=== PATIENT | female | born 1965 | race Caucasian/White ===

== ENCOUNTER 2018-08-16 07:09 | Emergency (ER) | payer BC, OTHER ==
[2018-08-16 08:22] LABS: ABS Basophils 0 10^3/ul (0-0.2); ABS Eosinophils 0.3 10^3/ul (0-0.6); ABS Lymphocytes 0.9 10^3/ul (1.0-4.8); ABS Monocytes 0.6 10^3/ul (0-0.8); ABS Neutrophils 6.4 10^3/ul (1.5-7.7); ABS Nucleated RBC 0 10^3/ul; Eosinophil % 3.4 %; Hematocrit 43 % (33-41); Hemoglobin 14.6 g/dL (12.0-16.0); Lymphocyte % 10.6 %; Mean Corpuscular HGB Conc 34 g/dL (31-36); Mean Corpuscular Hemoglobin 32 pg (27-31); Mean Corpuscular Volume 92 fL (80-97); Mean Platelet Volume 8.3 fL (7.4-10.4); Nucleated Red Blood Cells % 0.1; Platelet Count 294 10^3/uL (150-450); Red Blood Count 4.64 10^6 /uL (3.70-4.87); Red Cell Distribution Width 13 % (10.5-15); White Blood Count 8.1 10^3/uL (3.5-10.8)
[2018-08-16 08:33] LABS: INR 0.95 (0.82-1.09)
[2018-08-16 08:39] LABS: Albumin 4.3 g/dL (3.2-5.2); Albumin/Globulin Ratio 1.8 (1-3); BUN/Creatinine Ratio 19.7 (8-20); Calcium 9.2 mg/dL (8.6-10.3); EGFR African American 114.2 (>60); EGFR Non-African American 94.4 (>60); Globulin 2.4 g/dL (2-4); Potassium 4.3 mmol/L (3.5-5.0); Total Bilirubin 0.4 mg/dL (0.2-1.0); Total Protein 6.7 g/dL (6.4-8.9)
[2018-08-16] MEDS ORDERED: Ketorolac INJ* 30 MG/ML 1 ML VIAL IV PUSH ONE (08:45)
[2018-08-16] MEDS ORDERED: Iohexol 350* (CONTRAST) 500 ML MDV IV ONE (09:22)
[2018-08-16 10:36] VITALS: BP 132/86
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
== END 2018-08-16 10:35 | disposition home or self-care (01) ==
LOC: ED 07:09
DX: R07.89 Other chest pain (principal); J90 Pleural effusion, not elsewhere classified; F17.210 Nicotine dependence, cigarettes, uncomplicated
CPT/HCPCS: 36415; 71046; 71275; 80053; 83605; 84484; 85025; 85610; 93005; 96374; 99283; J1885; Q9967

== ENCOUNTER → 2019-01-14 | Day surgery (SDC) | payer BC ==
[~2019-01-14] MED LIST: Buffered Lidocaine 1% SYRIN* 1 ML/SYRINGE INTRADERM ONE; Bupivacaine 0.25% EPI 200,000* 30 ML SDV ONE; Dexamethasone IV* 4 MG/ML 1 ML (4 MG) ONE; HYDROcodone/ACETAMIN 5-325 MG* 1 TAB ONE; Ketorolac INJ* 30 MG/ML 1 ML VIAL ONE; Labetalol IV* 5 MG/ML 20 ML VIAL ONE; Lactated Ringers 1000 ML Bag* 1,000 ML IV SCH; Lidocaine 1% INJ* 10 MG/ML 30 ML SDV ONE; Midazolam* 1 MG/ML 2 ML VIAL (2 MG) ONE; Midazolam* 1 MG/ML 5 ML VIAL (5 MG) ONE; Naloxone* 0.4 MG/ML 1 ML VIAL IV PRN; Propofol* 10 MG/ML 20 ML BTL ONE; Vancomycin(*) 1,000 MG in NS 0.9% 250 ML* 250 ML IVPB ONE; ceFAZolin 2 GM in NS PREMIX(*) 0 GM/0 ML BAG IVPB ONE; fentaNYL* 50 MCG/ML 2 ML VIAL (100 MCG VIAL) ONE
[2019-01-14 14:41] VITALS: BP 134/81
--- NOTE | 2019-01-14 21:38 | OP ---
DATE OF OPERATION: 01/14/19 - [facility] DATE OF : 67 SURGEON: Steve Stein DPM. ANESTHESIA: MAC, local. PRE-OP DIAGNOSIS: Cellulitis and abscess of a dehisced surgical wound. POST-OP DIAGNOSIS: Cellulitis and abscess of a dehisced surgical wound with complications from orthopedic hardware. OPERATIVE PROCEDURE: Incision and drainage with pulse lavage, right foot. ESTIMATED BLOOD LOSS: Less than 10 cc. IV FLUIDS: LR 1000 cc. DRAINS: None. SPECIMENS: Culture swab of the bone and surgical screw sent to Pathology. DESCRIPTION OF PROCEDURE: The patient was taken to the operating room and was placed in the supine position. Time-out was called and OR team agreed. The foot was then blocked with 8 cc of 1% lidocaine plain in a Arthur block fashion at the base of the metatarsal. The foot was then prepped and draped in sterile manner. A cuff was applied, but was not used for this case. Attention was then paid to the wound where there was a surgical wound approximately the size of 6 cm x 3 cm and the depth was down to tendon. I went ahead and proceeded to inspect the wound first and I noticed that the dehiscence goes all the way down to bone and that the surgical hardware was exposed. I went ahead and removed any kind of nonviable tissue, debrided with a #15 blade. I also did a Pulsavac with just normal saline. I used about 3 L. I went ahead and removed the solitary surgical screw and sent it for pathology for cultures. The most distal part of the wound is the one that the patient was complaining of pain. I examined that area. That happens to be the exact same spot supplied by a nerve from the plantar aspect base of the toe. I went ahead and debrided that and closed it with 2 nylon sutures. I left the wound open. I put Xeroform on the tendon to keep it from drying up. I applied a dry sterile dressing. I will have her come back in the office on Thursday for application of a wound VAC. [id number]/[facility] #: [id number] MOSHE
== END | disposition home or self-care (01) ==
LOC: OR 10:08
PROVIDERS: ATTEND Podiatrist
DX: T84.69XA Infection and inflammatory reaction due to internal fixation device of other site, initial encounter (principal); T81.32XA Disruption of internal operation (surgical) wound, not elsewhere classified, initial encounter; L03.115 Cellulitis of right lower limb; E78.5 Hyperlipidemia, unspecified; K21.9 Gastro-esophageal reflux disease without esophagitis
CPT/HCPCS: 87070; 87073; 87077; 87186; 87205; 88300; J0690; J1100; J1885; J2250; J2704; J3010; J3370

== ENCOUNTER 2019-01-31 13:07 | Inpatient (IN) | payer BC ==
--- OUTSIDE RECORDS SUMMARY | 2019-01-31 13:27 | XMS REPORT | Continuity of Care Document ---
:1965 External Reference #:[id number] Author Name Aubrey Faust M.D. (transmitted by agent of provider Columba Ogden) Address [address] [place] [address] [place] [address] Care Team Providers Name Role Phone Aubrey Calderon MD - Family Medicine Care Team Information Dog Obedience Instructor [phone] Problems Description No Information Available Social History Type Date Description Comments Sex Unknown ETOH Use Occasionally consumes alcohol Recreational Drug Use Current Drug User Marijuana 1x/week Tobacco Use Start: Unknown End: Patient is a former Quit a year ago. Unknown smoker Smoking Status Reviewed: 01/13/19 Patient is a former Quit a year ago. smoker Exercise Type/Frequency Exercises sporadically Allergies, Adverse Reactions, Alerts Description No Known Drug Allergies Medications Active Medications SIG Qnty Indications Ordering Provider Date Prilosec 1 by mouth 30caps Other Ordering 03/21/[address] every day Provider Multivitamin Gummies 1 by mouth 60units Other Ordering 03/21/2015 Adult every day Provider [place] Acetaminophen 1 tab q 6 hrs 60units Other Ordering 03/21/2015 250mg as needed pain Provider Clindamycin HCL Prudencioagonzalo, 300mg MD Steve Capsules Bupropion Brandon, Hydrochloride ER (XL) Lexandria, P.A. 300mg Tablets ER 24HR Immunizations Description No Information Available Vital Signs Date Vital Result Comment 01/13/2019 10:08am Height 65 inches 5'5" Weight 161.00 lb Heart Rate 91 /min BP Systolic 128 mmHg BP Diastolic 82 mmHg Respiratory Rate 22 /min Body Temperature 98.1 F Pain Level 9 BMI (Body Mass Index) 26.8 kg/m2 Results Description No Information Available Procedures Description No Information Available Medical Devices Description No Information Available Encounters Description No Information Available Assessments Date Code Description Provider 01/13/2019 M20.11 Hallux valgus (acquired), right foot Aubrey Faust M.D. Plan of Treatment 01/13/2019 - Aubrey Faust M.D.M20.11 Hallux valgus (acquired), right footFollow up:As needed Functional Status Description No Information Available Mental Status Description No Information Available Referrals Description No Information Available
[2019-01-31] MEDS ORDERED: NS 0.9% 1000 ML** 1,000 ML IV ONE ×2 (14:33→17:41)
[2019-01-31] MEDS ORDERED: HYDROmorphone INJ1* 1 MG/ML SYRINGE IV SLOW PU ONE ×3 (14:33→21:41)
[2019-01-31] MEDS ORDERED: Ondansetron INJ* 2 MG/ML VIAL IV ONE ×3 (14:33→21:41)
--- NOTE | 2019-01-31 14:38 | ED ---
Abdominal Pain/Female - HPI Summary HPI Summary: Pt is a 53 y/o F presenting to the ED for a chief complaint of diffuse abdominal pain that began at midnight on 01/31/19. Pt is present with her . Pt describes the pain as cramping. Pt also reports nausea, vomiting, and diarrhea that also began at midnight on 01/31/19. 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 On triage, pt rated the pain as 10/10 in severity. Pt denies taking any OTC medication for her symptoms. Pt recently had a foot surgery 8 weeks ago and is currently taking penicillin for a PMHx of MRSA and a staph infection. Pt called her surgeon who told the pt to go to the ED for a concern of post-op infection. Pt has a PSHx of cholecystectomy and 3 C-sections. Pt denies a PSHx of appendectomy or hysterectomy. Allergies noted. - History of Current Complaint Chief Complaint: EDAbdPain Stated Complaint: POST OP INFECTION PER PT Time Seen by Provider: 01/31/19 14:20 Hx Obtained From: Patient, Family/Manager Division - Hx Last Menstrual Period: dorinda time Onset/Duration: Sudden Onset, Lasting Hours, Still Present Severity Initially: Severe Severity Currently: Severe Pain Intensity: 10 Pain Scale Used: 0-10 Numeric Location: Diffuse Radiates: No Character: Cramping Aggravating Factor(s): Nothing Alleviating Factor(s): Nothing Associated Signs and Symptoms: Positive: Nausea, Vomiting, Diarrhea, Other: - Positive syncope Allergies/Adverse Reactions: Allergies Allergy/AdvReac Type Severity Reaction Status Date / Time No Known Allergies Allergy Verified 01/31/19 13:11 PMH/Surg Hx/FS Hx/Imm Hx Previously Healthy: Yes Endocrine/Hematology History: Denies: Hx Diabetes, Hx Thyroid Disease Cardiovascular History: Denies: Hx Congestive Heart Failure, Hx Hypertension Respiratory History: Denies: Hx Asthma, Hx Chronic Obstructive Pulmonary Disease (COPD) GI History: Reports: Hx Gall Bladder Disease - cholecystectomy, Hx Gastroesophageal Reflux Disease, Other GI Disorders - HISTORY OF PANCREATITIS Denies: Hx Ulcer History: Denies: Hx Renal Disease Musculoskeletal History: Reports: Other Musculoskeletal History - BUNION RIGHT FOOT Sensory History: Reports: Hx Contacts or Glasses - -readers Denies: Hx Legally Blind, Hx Deafness, Hx Hearing Aid Opthamlomology History: Reports: Hx Contacts or Glasses - -readers Denies: Hx Legally Blind EENT History: Denies: Hx Deafness Psychiatric History: Reports: Hx Depression - Cancer History Hx Chemotherapy: No Hx Radiation Therapy: No - Surgical History Surgical History: Yes Surgery Procedure, Year, and Place: cholecystectomy. csection x3. right foot surgery 12/10/2018 Hx Anesthesia Reactions: No Infectious Disease History: No Infectious Disease History: Denies: Hx Hepatitis, Hx Human Immunodeficiency Virus (HIV), Traveled Outside the US in Last 30 Days - Family History Known Family History: Negative: Diabetes - Social History Lives: With Family Alcohol Use: Occasionally Hx Substance Use: No Substance Use Type: Reports: None Hx Tobacco Use: Yes Smoking Status (MU): Former Smoker Type: Cigarettes Amount Used/How Often: a little less than a pack a day Length of Time of Smoking/Using Tobacco: 20 years Have You Smoked in the Last Year: No Review of Systems Positive: Abdominal Pain - Diffuse, Vomiting, Diarrhea, Nausea Positive: Syncope All Other Systems Reviewed And Are Negative: Yes Physical Exam - Summary Physical Exam Summary: Appearance: The patient is well-nourished in moderate distress secondary to pain. Skin: The skin is warm and dry, and skin color reflects adequate perfusion. HEENT: The head is normocephalic and atraumatic. The pupils are equal and reactive. The conjunctivae are clear and without drainage. Nares are patent and without drainage. Mouth reveals moist mucous membranes, and the throat is without erythema and exudate. The external ears are intact. The ear canals are patent and without drainage. The tympanic membranes are intact. Neck: The neck is supple with full range of motion and non-tender. There are no carotid bruits. There is no neck vein distension. Respiratory: Chest is non-tender. Lungs are clear to auscultation and breath sounds are symmetrical and equal. Cardiovascular: Heart is regular rate and rhythm. There is no murmur or rub auscultated. There is no peripheral edema and pulses are symmetrical and equal. Abdomen: The abdomen is soft. There are normal bowel sounds heard in all four quadrants and there is no organomegaly palpated. There is diffuse abdominal tenderness. Musculoskeletal: There is no back tenderness noted. Extremities are non-tender with full range of motion. There is good capillary refill. There is no peripheral edema or calf tenderness elicited. Neurological: Patient is alert and oriented to person, place and time. The patient has symmetrical motor strength in all four extremities. Cranial nerves are grossly intact. Deep tendon reflexes are symmetrical and equal in all four extremities. Psychiatric: The patient has an appropriate affect and does not exhibit any anxiety or depression. Triage Information Reviewed: Yes Vital Signs On Initial Exam: Initial Vitals Temp Pulse Resp BP Pulse Ox 96.8 F 92 16 142/97 97 01/31/19 13:09 01/31/19 13:09 01/31/19 13:09 01/31/19 13:09 01/31/19 13:09 Vital Signs Reviewed: Yes Procedures - Sedation Patient Received Moderate/Deep Sedation with Procedure: No Diagnostics - Vital Signs Vital Signs Temp Pulse Resp BP Pulse Ox 01/31/19 13:09 96.8 F 92 16 142/97 97 - Laboratory Result Diagrams: 01/31/19 20:35 01/31/19 15:05 Lab Statement: Any lab studies that have been ordered have been reviewed, and results considered in the medical decision making process. - CT Abdomen/Pelvis CT CT Interpretation Completed By: Radiologist Summary of CT Findings: Abdomen/Pelvis CT IMPRESSION: Probable mild diffuse colitis of the descending colon. There is associated mild focal ileus of small bowel. No other acute process seen. Reviewed by ED physician. Re-Evaluation - Re-Evaluation 1st re-eval Re-Evaluation Time: 17:35 Change: Unchanged Comment: At 17:35, pt is unchanged after being given hydromorphone 1 mg IV, ondansetron 4 mg IV, and fluids. Abdominal Pain Fem Course/Dx - Course Course Of Treatment: Ms. Gu the sudden onset of severe crampy abdominal pain at midnight last night. She initially had quite a bit of vomiting and diarrhea but that has resolved and no more occurred while she was here. She was nontoxic in appearance with stable vitals however clearly in pain distress. She was given IV Dilaudid and Zofran as well as IV fluids while labs were obtained. Beta great deal of difficulty getting labs but ultimately they were within normal limits. CT scan of her abdomen revealed a colitis which I have to suspect ischemic colitis given the story. I spoke with Dr. Ruelas who recommends admission to the hospitalist I spoke with Dr. currie to arrange that. - Diagnoses Provider Diagnoses: Ischemic colitis - Critical Care Time Critical Care Time: 30-74 min Discharge ED - Sign-Out/Discharge Documenting (check all that apply): Patient Departure - Admit - Discharge Plan Condition: Stable Disposition: ADMITTED TO [facility] Referrals: Kvng LANDAVERDE,Aubrey Rogers [Primary Care Provider] - - Billing Disposition and Condition Condition: STABLE Disposition: Admitted to [facility] - Attestation Statements Document Initiated by Scribe: Yes Documenting Scribe: Yamila Tena Provider For Whom Laurenibe is Documenting (Include Credential): Monico Zarate MD Scribe Attestation: IYamila, scribed for Moncio Zarate MD on 01/31/19 at 2136. Scribe Documentation Reviewed: Yes Provider Attestation: The documentation as recorded by the Yamila avitia accurately reflects the service I personally performed and the decisions made by me, Monico Zarate MD Status of Scribe Document: Viewed Consult Consult: At 21:23, I discussed pts case with Dr. Ruelas who recommends admission. At 21:27, Dr. Gonzáles who agrees to admit the pt with a diagnosis of ischemic colitis.
[2019-01-31 15:30] LABS: Albumin 4.2 g/dL (3.2-5.2); CO2 Carbon Dioxide 16 mmol/L (22-32); Chloride 110 mmol/L (101-111); Sodium 139 mmol/L (135-145)
[2019-01-31 15:37] LABS: ALT 52 U/L (7-52); Albumin/Globulin Ratio 1.5 (1-3); Alkaline Phosphatase 89 U/L (34-104); BUN/Creatinine Ratio 30.6 (8-20); Blood Urea Nitrogen 19 mg/dL (6-24); C Reactive Protein 5.63 mg/L (<8.01); EGFR African American 122.3 (>60); EGFR Non-African American 101.1 (>60); Globulin 2.8 g/dL (2-4); Glucose 119 mg/dL (70-100)
[2019-01-31 16:07] LABS: Anion Gap 13 mmol/L (2-11)
[2019-01-31 20:46] LABS: ABS Lymphocytes 0.9 10^3/ul (1.0-4.8); ABS Monocytes 0.6 10^3/ul (0-0.8); ABS Neutrophils 8.9 10^3/ul (1.5-7.7); Eosinophil % 0.1 %; Hematocrit 38 % (35-47); Lymphocyte % 8.5 %; Mean Corpuscular HGB Conc 34 g/dL (31-36); Mean Corpuscular Hemoglobin 31 pg (27-31); Mean Corpuscular Volume 91 fL (80-97); Nucleated Red Blood Cells % 0.1; Platelet Count 303 10^3/uL (150-450); Red Blood Count 4.12 10^6 /uL (3.70-4.87); Red Cell Distribution Width 13 % (10-15); White Blood Count 10.4 10^3/uL (3.5-10.8)
[2019-01-31] MEDS ORDERED: Al Hydrox/Mg Hydrox/Simet LIQ* 30 ML UDC PO PRN (21:35)
[2019-01-31] MEDS ORDERED: NS 0.9% 1000 ML** 1,000 ML IV SCH (21:45)
[2019-01-31] MEDS ORDERED: Vancomycin(*) 1,000 MG in NS 0.9% 250 ML* 250 ML IVPB ONE (22:36)
[2019-01-31] MEDS ORDERED: Vancomycin per Pharmacy* NOTE FOLLOW UP SCH (23:00)
[2019-02-01] MEDS ORDERED: Vancomycin 1500 MG IV - x ONCE IVPB ONE ×2
[2019-02-01] MEDS: cefTRIAXone(*) 1 GM in NS 0.9% 50 ML* 50 ML IVPB SCH ×2 (00:05→22:32)
[2019-02-01] MEDS: NS 0.9% 1000 ML** 1,000 ML IV SCH ×3 (00:05→20:14)
[2019-02-01] MEDS: Ondansetron INJ* 2 MG/ML VIAL IV PRN ×3 (00:50→20:28)
--- NOTE | 2019-02-01 00:51 | HP ---
CC: Dr. Calderon; Dr. Stein; Dr. Faust; Dr. Dallas; Dr. Ruelas; Dr. Galan. HISTORY AND PHYSICAL: DATE OF ADMISSION: 01/31/19 PRIMARY CARE PROVIDER: Dr. Calderon. PODIATRY: Dr. Stein. ORTHOPEDIC SURGERY: Dr. Dallas. GI: Dr. Ruelas. ID: Dr. Galan. CHIEF COMPLAINT: Nausea, vomiting, abdominal pain. HISTORY OF PRESENT ILLNESS: Karrie Gu is a 53-year-old female with a history of depression and recurrent episodes of nausea and vomiting every couple of years, who also is currently on ciprofloxacin for an infected right bunion surgical site who presented to the hospital complaining of nausea, vomiting, and several episodes of loose stools. The patient stated that early in the morning on 01/31/19, she started having nausea and vomiting and crampy abdominal pain in bilateral lower quadrants. She had 3 or 4 loose bowel movements, but she has not had any for past 7 hours. She still continues to be nauseated. A CT of the abdomen showed colitis. She is still tachycardic. She is going to be placed on overnight observation. PAST MEDICAL HISTORY: 1. The patient underwent right bunion surgery with hardware placement by Dr. Stein in November of 2018. The wound postoperative dehisced and at the beginning of December of 2018 Dr. Stein took the patient to the OR, removed the hardware and placed a wound VAC in place. Since then for the past 6 weeks she had been on various p.o. antibiotics, the most recent one was ciprofloxacin. She also recalls that she was on Bactrim before that. Her wound cultures grew Enterococcus faecalis as well as MRSA. It also grew Stenotrophomonas maltophilia. The patient stated that she stopped taking antibiotics on the morning of where she could not keep anything down. 2. History of recurrent problems with nausea and vomiting "every couple of years." 3. History of status post cholecystectomy in the year of 1999. 4. History of pancreatitis in 2007. 5. Tubal ligation. 6. History of possibility of "intestinal migraine." The patient's gastroscopy was obtained in 2013, showed erosive esophagitis at the GE junction. MEDICATIONS: At home include: 1. Bupropion XL 300 mg daily. 2. Multivitamin 1 tablet daily. 3. Omeprazole 20 mg daily. 4. ciprofloxacin -stopped within the past 24H ALLERGIES: No known drug allergies. FAMILY HISTORY: Positive for father with diabetes and mother with history of rheumatoid arthritis. SOCIAL HISTORY: The patient has a history of 15-pack year smoking and she quit in 2013. She denies any alcohol or drug use. 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 Her is her surrogate. REVIEW OF SYSTEMS: Please see history of present illness. In addition to the above mentioned, the patient stated that her right foot had become swollen more so in the bunion area ever since she started vomiting and stopped taking her oral antibiotics. She has more redness in the area, but she has reported no fevers. She has chronic constant pain in the area also. She wears boots to be able to bear weight on the right foot. She just vomited a couple of hours ago. All the remaining 12 systems were reviewed with the patient and were otherwise negative. PHYSICAL EXAMINATION GENERAL: The patient is a very pleasant 53-year-old female who is in no acute distress. Alert, awake, and oriented x3. VITAL SIGNS: Blood pressure of 133/78, heart rate of 101 and regular, respiratory rate 16, oxygen saturation 100% on room air, temperature of 96.8. HEENT: Head atraumatic and normocephalic. Eyes: Pupils are equal, round, and reactive to light and accommodation. Oropharynx clear. Mucosa moist. NECK: Supple. No JVD. No bruits bilaterally. RESPIRATORY: Clear to auscultation bilaterally. CARDIOVASCULAR: Regular rate and rhythm. No murmur. ABDOMEN: Soft and mildly tender in bilateral lower quadrants. No rebound and no guarding. Bowel sounds are present in all 4 quadrants. EXTREMITIES: The right foot on the dorsal aspect of it overlying the first toe metacarpal area, there is a longitudinal wound of approximately 2 cm in width and 10 cm in length with wound VAC in place. The skin surrounding the area has approximately 3 cm width of cellulitis with edema, increased warmth, and erythema. There was no visible drainage, but the wound VAC is in place and is currently working. The patient is unable to move her right first toe and she stated that she had not been able to do it ever since her surgery. There are no abnormalities noted on the left foot. There are no other abnormalities on evaluation of the skin noted. PSYCHIATRIC EVALUATION: Pleasant and cooperative with evaluation. Oriented x3. LABORATORY DATA: White blood cell count of 10.4, hemoglobin of 15.0, hematocrit 38, and platelets of 203,000. Sodium of 139, potassium was hemolyzed unfortunately, carbon dioxide 16, chloride of 110, anion gap of 13, creatinine of 0.6, BUN 19. Liver function test unremarkable. C-reactive protein was 5.6. CT of the abdomen and pelvis: Impression: "Probable mild diffuse colitis of the descending colon with associated mild focal ileus of the small bowel. No other acute process seen." ASSESSMENT AND PLAN: 1. An episode of nausea, vomiting, and diarrhea. It appears that the patient has more nausea and vomiting than loose stools, although she did have approximately 4 episodes of loose stool today. At this point, the differential includes a reaction of the patient to ongoing cellulitis and wound infection noted on the right toe versus gastroenteritis versus possibility of ischemic colitis. At this time, the patient is going to be placed on clear liquid diet. Dr. Ruelas was already notified by the ED provider and will see the patient in the morning. 2. In regards of right foot infected postoperative wound, the patient is going to be continued on the wound VAC for the time being. She requested to be seen by Dr. Faust whom she saw in the recent past. I spoke with Dr. Dallas who will contact Dr. Faust and if Dr. Faust is available, he will see the patient , otherwise one of our other orthopedic surgeons will see the patient for evaluation. The patient is going to be placed on broad spectrum antibiotics and from the evaluation of the patient's recent cultures positive for MRSA, Enterococcus faecalis, and Stenotrophomonas, the patient is going to be placed on ceftriaxone and vancomycin. 3. Diarrhea. The patient had 4 loose stools in the morning. She has not had any for 7 hours. I doubt this is Clostridium difficile infection. Nevertheless , we will test the patient for it since she had been on antibiotics for the past [address] the patient on probiotic. 4. For her depression, the patient is going to be continued on her antidepressant from home. 5. For DVT prophylaxis, the patient is low risk and she is going to be encouraged to ambulate as possible. TIME SPENT: Approximately 65 minutes were spent on admission of this patient, more than half the time was spent [id number] with the patient during the interview and physical exam. [id number]/BEAN #: [id number] MOSHE
[2019-02-01] MEDS: Morphine INJ* 2 MG/ML 1 ML SYRINGE (TWO MG - NEW SYRINGE VERSION) IV PRN ×3 (00:55→09:46)
--- NOTE | 2019-02-01 06:41 | PN ---
Progress Note - Progress Note Date of Service: 02/01/19 Note: Pt seen and examined. Full note consulted. Pt with history of left foot bunion surgery 12/10/18. Pt with wound complications and now VAC. Recent surgery 2 weeks ago with I and D and graft placement. Exposed tendon under graft. No gross purulence but surrounding erythema. Will obtain xrays and discuss with Dr Faust.
[2019-02-01] MEDS: Pantoprazole TAB * 40 MG TAB PO SCH (08:13)
[2019-02-01] MEDS: BuPROPion XL* 300 MG TAB.XL PO SCH (08:13)
[2019-02-01] MEDS: Lactobacillus Acidophilus* 1 TAB PO SCH ×2 (08:13→20:14)
[2019-02-01] MEDS: Acetaminophen TAB* 325 MG PO PRN ×2 (08:13→14:46)
[2019-02-01 10:53] LABS: Urine Appearance Cloudy; Urine Bacteria Absent (Absent); Urine Bilirubin Negative (Negative); Urine Blood Negative (Negative); Urine Color Yellow; Urine Glucose Negative (Negative); Urine Ketones 1+ (Negative); Urine Nitrite Negative (Negative); Urine Protein Negative (Negative); Urine Red Blood Cell Trace(0-2/hpf) (Absent); Urine Specific Gravity 1.021 (1.010-1.030); Urine Squamous Epithelial Cell Present (Absent); Urine Urobilinogen Negative (Negative); Urine White Blood Cell 1+(6-10/hpf) (Absent)
[2019-02-01 13:49] LABS: Calcium 8.4 mg/dL (8.6-10.3); Potassium 3.5 mmol/L (3.5-5.0)
[2019-02-01 13:54] LABS: BUN/Creatinine Ratio 21.5 (8-20); EGFR African American 115.8 (>60); EGFR Non-African American 95.7 (>60)
--- NOTE | 2019-02-01 14:00 | PN ---
Subjective Date of Service: 02/01/19 Interval History: HD 2 on 02/01 53 y/o F with history of depression, Migraine and recurrent nausea and vomiting( every couple of years) presented with nausea and vomiting with loose stools. Recently had right bunion surgery on 11/2018 with wound dehiscence and I and D iwth wound vac on 12/2018. On ceftriaxone and vanco(day 2 on 02/01) complaains of headache and burning sensation on her right leg No nausea, vomiting or abdominal pain at present. SHe has not Bm since hospital admission Objective Active Medications: Acetaminophen (Tylenol Tab*) 650 mg PO Q4H PRN PRN Reason: PAIN-MILD/TEMP >/= 100.4 Last Admin: 02/01/19 08:13 Dose: 650 mg Al Hydrox/Mg Hydrox/Simethicone (Maalox Plus*) 30 ml PO Q6H PRN PRN Reason: INDIGESTION Bupropion HCl (Bupropion Xl*) 300 mg PO QAM [facility] Last Admin: 02/01/19 08:13 Dose: 300 mg Sodium Chloride (Ns 0.9% 1000 Ml) 1,000 mls @ 125 mls/hr IV PER RATE [facility] Last Admin: 02/01/19 09:50 Dose: 125 mls/hr Ceftriaxone Sodium 1 gm/ (Sodium Chloride) 50 mls @ 100 mls/hr IVPB Q24H [facility] Last Admin: 02/01/19 00:05 Dose: 100 mls/hr Vancomycin HCl 1,250 mg/ (Sodium Chloride) 250 mls @ 166.667 mls/hr IVPB Q12H [facility] Lactobacillus Rhamnosus (Lactobacillus Acidophilus*) 1 tab PO BID [facility] Last Admin: 02/01/19 08:13 Dose: 1 tab Morphine Sulfate (Morphine Inj (Syringe))*) 2 mg IV Q4H PRN PRN Reason: PAIN - SEVERE Last Admin: 02/01/19 09:46 Dose: 2 mg Ondansetron HCl (Zofran Inj*) 4 mg IV Q4H PRN PRN Reason: NAUSEA/VOMITING Last Admin: 02/01/19 00:50 Dose: 4 mg Pantoprazole Sodium (Protonix Tab*) 40 mg PO QAM [facility] Last Admin: 02/01/19 08:13 Dose: 40 mg Pharmacy Consult (Vancomycin Per Pharmacy*) 1 note FOLLOW UP .VANC PER PHARMACY [facility]; Protocol Pharmacy Profile Note (Vancomycin Trough Check) 1 note FOLLOW UP 1230 ONE Stop: 02/02/19 12:31 Vital Signs - 8 hr 02/01/19 02/01/19 02/01/19 07:15 08:00 08:02 Temperature 98.7 F Pulse Rate 95 Respiratory 16 18 18 Rate Blood Pressure 114/52 (mmHg) O2 Sat by Pulse 100 Oximetry 02/01/19 02/01/19 02/01/19 09:46 11:01 11:15 Temperature 98.8 F Pulse Rate 97 Respiratory 18 18 16 Rate Blood Pressure 118/71 (mmHg) O2 Sat by Pulse 100 Oximetry Oxygen Devices in Use Now: None Exam: Patient is lying on abed with no acute distress. HEENT: Normocephalic and atrauamtic Lungs: Clear with no added sound Heart: S1/S2 heard with no murmur Abdomen: SOft, mild tenderness on lower abdomen Extremities: clean dressing on right ankle with no soaking and wound vac present. Neuro: Alert, conscious and oriented Result Diagrams: 01/31/19 20:35 02/01/19 12:49 Assess/Plan/Problems-Billing Assessment: 53 y/o F with history of depression, Migraine and recurrent nausea and vomiting( every couple of years) presented with gastroenteritis. Recently had right bunion surgery on 11/2018 with wound dehiscence and I and D iwth wound vac on . On ceftriaxone and vanco(day 2 on 02/01). - Patient Problems (1) Gastroenteritis Current Visit: Yes Status: Acute Code(s): K52.9 - NONINFECTIVE GASTROENTERITIS AND COLITIS, UNSPECIFIED SNOMED Code(s): 51803258 Comment: -had nauea, vomiting and diarrhea on presentation - nO fever, and leucocytosis -CT abdomen- probable colitis - Asymptomatic at present; mild abdominal pain; No BM since yesterday - It could be viral gastroenteritis- we will closely monitor her for worsening of symptom - She was on abx for foot infection- suspicion of c. diff as well but less likely as her diarrhea subsided without oral van or flagyl; although we will send stool pcr - less likely ischemic given her minimal sx and normal vitals and labs (2) Right foot infection Current Visit: Yes Status: Acute Code(s): L08.9 - LOCAL INFECTION OF THE SKIN AND SUBCUTANEOUS TISSUE, UNSP SNOMED Code(s): 578623776 Comment: -s/p right bunion surgery on 11/2018 and I&D with wound vac on 12/2018 - last wound culture on 01/14/19 grew enterococcus and stenotrophomas and also MRSA. - We are covering with ceftriaxone and vanco - Foot Xray didnot show hardware but there was lucency in distal first metatarsal -Ortho following- will decide on if she needs repeat I&D(?outpatient) (3) Depression Current Visit: Yes Status: Acute Code(s): F32.9 - MAJOR DEPRESSIVE DISORDER , SINGLE EPISODE, UNSPECIFIED SNOMED Code(s): 89087852 Comment: On bupropion (4) Migraine Current Visit: Yes Status: Acute Code(s): G43.909 - MIGRAINE, UNSP, NOT INTRACTABLE, WITHOUT STATUS MIGRAINOSUS SNOMED Code(s): 30074892 Comment: -Has history of migraine -takes nsaid prn at home (5) DVT prophylaxis Current Visit: No Status: Acute Code(s): FDG8773 - SNOMED Code(s): 786681340 Comment: Ambulatory (6) Full code status Current Visit: No Status: Acute Code(s): Z78.9 - OTHER SPECIFIED HEALTH STATUS SNOMED Code(s): 325548830 Status and Disposition: observation; ortho following waiting for ortho recommendation on I&D and if it can be as an outpatient Attending: Rocco Morales Attestation Documenting Resident: Amanda Bhatt Supervising Physician: Luther Morales Attestation: This service has been performed in part by a resident under the direction of a teaching physician.I, Luther Morales, performed the service, or was physically present during the critical, or esposito portions of the service, furnished by the resident. I participated in the management of the patient.
--- NOTE | 2019-02-01 14:13 | CONS ---
CC: PCP * CONSULTATION REPORT: DATE OF CONSULT: 02/01/19 CHIEF COMPLAINT: Right foot pain, possible infection. ADMITTING DIAGNOSIS: Nausea, vomiting, and abdominal pain. HISTORY OF PRESENT ILLNESS: Karrie Gu is a 53-year-old female with history of depression, nausea, vomiting, who was currently on ciprofloxacin after infected right bunion surgery that was done by Dr. Stein on . She has had persistent issues since that time. She did not heal the wound very well. The wound did dehisce. He then took her recently, 2 weeks ago, on 01/14/19, to the OR for an I and D and an apex graft placement and a VAC and removal of hardware. She has subsequently continued to have pain. She has MRSA , as well as enterococcus has been growing. She has been on various types of antibiotics. She is now hospitalized because of loose bowels, abdominal pain, nausea, vomiting. She was also tachycardic somewhat. CT of the abdomen shows some mild colitis. PAST MEDICAL HISTORY: Nausea and vomiting every couple of years, history of pancreatitis, depression, history of possible intestinal migraine with erosive esophagitis at the GE junction. PAST SURGICAL HISTORY: Right foot bunion surgery with Dr. Stein with a subsequent I and D and wound VAC placement, cholecystectomy, tubal ligation. MEDICATIONS: At home: 1. Bupropion. 2. Multivitamin. 3. Omeprazole. 4. Cipro, which she stopped. ALLERGIES: None. FAMILY HISTORY: Significant for father with diabetes, mother with rheumatoid arthritis. SOCIAL HISTORY: She has a history of [id number] smoking, quit in 2013. She denies any drug use. 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 Her is her surrogate. REVIEW OF SYSTEMS: A 14-point review of systems reviewed with the patient and significant for nausea, vomiting, right foot wound, some redness. No fevers, no chills. She has persistent burning pain and recent emesis. Otherwise, remainder of the systems is negative. PHYSICAL EXAM: Vital Signs: Temperature 97.2, pulse of 93, respiratory rate 22 , O2 saturation is 98% on room air, blood pressure 117/58. She is in no acute distress. She is well developed and well nourished. She is alert and oriented x3. She has pleasant mood and normal affect. Good balance and coordination of her upper extremities. Examination of the right foot demonstrates that the wound VAC was taken down. There was a small area of a dehisced wound with an apex graft. The tendon is visible under it. It appears to be about 4 cm in longitudinal dimension about the dorsum of the foot with about 2 or 3 cm of widening. The remainder of the VAC was covering healed tissue that appeared to have some granulation to it. She had 2+ DP and PT pulse. She is able to dorsiflex and plantar flex her ankles. She has pain with flexing and extending her toe. She has brisk cap refill. DIAGNOSTIC STUDIES/LAB DATA: X-rays were reviewed. Right foot film demonstrates removal of hardware. Labs were also reviewed. White count of 10, hematocrit of 38, platelet count of 303. ESR is pending. CRP is 5.3. Sodium is 139, potassium too numerous, chloride 110, carbon dioxide 16, BUN of 19, creatinine 0.62, glucose 119. ASSESSMENT AND PLAN: She has a right foot dehisced wound with a graft, this needs to be addressed. At this point, she likely would benefit from debridement , but may need a flap or VAC placement. I am going to talk to my colleague Dr. Faust who she has seen in clinic in the past and have him assume care. [id number]/[facility] #: [id number] MOSHE
[2019-02-01] MEDS: Vancomycin(*) 1,250 MG in NS 0.9% 250 ML* 250 ML IVPB SCH (14:46)
[2019-02-01] MEDS: Ibuprofen TAB* 600 MG PO PRN (16:41)
--- NOTE | 2019-02-01 17:18 | CONS ---
GASTROENTEROLOGY CONSULT: DATE: 02/01/19 CONSULTING PHYSICIANS: Capri Gonzáles; Aubrey Calderon, [place], [place] REASON FOR CONSULT: Nausea, vomiting, and diarrhea with CT scan reporting thickening of the descending colon. HISTORY: This 53-year-old woman with a history of functional bowel disease ( generally not active over the last 5 years), status post cholecystectomy many years ago and who recently had right foot bunion surgery, has been dealing with infection at the surgical site since 12/10/18. She has been on multiple courses of antibiotics with her stating she has only been without antibiotics for 3 days since surgery. Last week, she was feeling reasonably well apart from having pain in the foot and a little bit of anorexia. Two weeks ago, she had an episode of abdominal cramps high and low and some nausea that persisted for 3 days, but it was a mild episode and she did not seek any care for that. Around 1 a.m. Thursday morning, she was having upper and lower abdominal cramps with nausea, vomiting and some diarrhea. She said it was more severe, but otherwise not atypical for episodes of abdominal distress that she is prone to. They had been active in the remote past, but actually for the last several years she has not been having much stomach trouble which she attributes to a careful diet. During the first 8 months of 2019, she has not had any gastrointestinal problems. At any rate, when she came to the emergency room yesterday, the focus was on diarrhea and the fact that she had been on antibiotics. There was also focus on nausea, vomiting. CT scan showed apparent thickening of the descending colon. Labs were unremarkable with white count normal at 10.4, hemoglobin 13.0, LFTs normal, and CRP normal at 5.63. I was called and the long-term history of gastrointestinal distress was not known to the ER physician. The abrupt onset of pain in the middle of the night suggested ischemic colitis and/or C. diff, although the abrupt nature of the symptoms was against the latter. She was admitted. Today on review with the in-house radiologist, it is felt that the descending colon is clearly of normal contour if not collapsed with a normal wall. There is no stranding around the descending colon. The right colon is prominent, but there is no stranding there and the second radiologist would not have called an abnormality there. It is of note that the same right colon area had been signaled as abnormal 10 and 12 years ago with subsequent colonoscopy unremarkable. See my 2014 consult. Over the last 30 hours, she has not had any more emesis or any stools or fever. She has been on clear liquids. She is currently dealing with localized leg pain in the surgical site and a headache. PAST MEDICAL HISTORY: 1. Cholecystectomy in 1999. 2. Episode of pancreatitis - lipase reaching 2760 on 12/27/13, however a CT scan showing no pancreatic abnormality. 3. Functional bowel disease - multiple admissions and 1 listing cyclic vomiting syndrome. The patient now attributes her improvement to decreasing carbs, fried foods and increasing vegetables and protein. Her follows the same diet, he has not been sick over the last few weeks. 4. - x3. 5. Tubal ligation. 6. Depression - currently managed on bupropion. MEDICATIONS: At home: Bupropion 300; omeprazole 20 (3 years started by a nurse practitioner at Dr. Calderon). 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 They have 3 children. REVIEW OF SYSTEMS: No history of seizure, TIA, CVA, syncope, arrhythmia, [place], valvular disease, TB, hemoptysis, hepatitis, jaundice, other abdominal surgery. EXAM: She is in bed holding her head and complaining of a global symmetric headache, in no distress otherwise. Her is present throughout assisting in the history. She has pain in her foot. She has just received a morphine shot. Vital signs are normal with temperature 98.8, pulse 97, blood pressure 118/71. She has been afebrile throughout. HEENT exam shows no icterus. She has no adenopathy. Her lungs are clear and heart sounds are regular. Breast and Pelvic Exams: Deferred. Rectal Exam: Deferred given no diarrhea. The abdomen is symmetric with well healed scar. Bowel sounds are normal and active. The right leg is bandaged. The left leg shows no edema. LABS: Hemoglobin 13.0, showing no particular trend; MCV 91, quite consistent in the low 90s over 7 years. Albumin 4.2, bilirubin 0.4, ALT 52, and CRP normal at 5.63 having been slightly elevated in December 2013 when the lipase was up. Hepatitis serology acute in December 2013 was negative including negative hepatitis C antibody. IMPRESSION: This 53 year old woman has a tendency to functional bowel disease that is a baseline, though apparently less of a problem over the last several years possibly 5 given an improved diet and possibly with consistent management of her depression and dyspepsia. It is not possible to delineate out the exact factors stabilizing her functional situation over the last years. Her current situation is nonspecific. While the initial report of diarrhea in the setting of 6 weeks of antibiotics stimulated concern about C. diff that is clearly not present now and ischemic colitis is also not present. CT scan interpretation is in question and my feeling is that the CT does not reveal any acute source of symptoms and the reading on the descending colon is false positive and the right colon or ascending colon which might have been substituted in registered nurse supervisor is also probably normal for her. No further tests or plan unless symptoms restart.. [id number]/[facility] #: [id number] MTDLuis
--- NOTE | 2019-02-01 18:00 | CONS ---
CONSULTATION REPORT: DATE OF CONSULT: 02/01/19 HISTORY OF PRESENT ILLNESS: Karrie is a very pleasant, largely healthy woman, who has been recovering from a hallux valgus repair several months ago. She had an Bairon-type procedure with a screw, but had significant dorsal wound breakdown with exposed EHL tendon. I saw her few weeks ago and at that point she was scheduled to have a debridement and possible VAC dressing. At this point, she has a biological membrane laid over the tendon and has had a VAC dressing periodically; however, she came in with nausea, vomiting and significant cellulitis around the great toe wound with increasing pain as time goes on not decreasing. She has had radiographs of the right foot, which show some osteopenia or possibly even some lysis around the metatarsal head and the bone does not look as healthy as it did on the previous visit when I saw her in the office. PHYSICAL EXAM: Her examination shows her to have a 3 cm longitudinal wound open over the dorsum of the MTP joint with the EHL tendon exposed. The tendon itself looks necrotic, dried out. There is surrounding erythema at the wound. No gross purulence noted. She has tenderness with any range of motion of the joint. IMPRESSION AND PLAN: I am concerned that this wound is not going to heal the way it is. She has exposed tendon, which appears desiccated. She has increasing erythema and x-ray with some at least osteopenic changes and possibility of deep bone infection. I would recommend an MRI scan of the great toe and then potentially she will need bone debridement and staged reconstruction most likely with a fusion of the joint and excision of the tendon. [id number]/[facility] #: [id number] MOSHE
[2019-02-01] MEDS ORDERED: Morphine INJ* 4 MG/ML 1 ML SYRINGE (NEW SYRINGE VERSION) IV PRN (22:25)
[2019-02-02] MEDS: Vancomycin(*) 1,250 MG in NS 0.9% 250 ML* 250 ML IVPB SCH ×2 (01:27→13:49)
[2019-02-02] MEDS: Morphine INJ* 2 MG/ML 1 ML SYRINGE (TWO MG - NEW SYRINGE VERSION) IV PRN ×3 (03:38→21:00)
[2019-02-02 06:16] LABS: ABS Basophils 0.1 10^3/ul (0-0.2); ABS Eosinophils 0.3 10^3/ul (0-0.6); ABS Monocytes 0.6 10^3/ul (0-0.8); ABS Neutrophils 5.8 10^3/ul (1.5-7.7); Eosinophil % 3.3 %; Hematocrit 33 % (35-47); Hemoglobin 11.6 g/dL (12.0-16.0); Mean Corpuscular HGB Conc 35 g/dL (31-36); Mean Corpuscular Hemoglobin 32 pg (27-31); Mean Corpuscular Volume 91 fL (80-97); Platelet Count 234 10^3/uL (150-450); Red Blood Count 3.67 10^6 /uL (3.70-4.87); Red Cell Distribution Width 13 % (10-15); White Blood Count 7.8 10^3/uL (3.5-10.8)
[2019-02-02 06:36] LABS: BUN/Creatinine Ratio 16.4 (8-20); Calcium 7.9 mg/dL (8.6-10.3); EGFR African American 140.4 (>60); EGFR Non-African American 116.1 (>60); Potassium 3.2 mmol/L (3.5-5.0)
--- NOTE | 2019-02-02 06:37 | PN ---
Subjective Date of Service: 02/02/19 Interval History: HD 3 0n 02/02 53 y/o F with history of depression, Migraine and recurrent nausea and vomiting( every couple of years) presented with nausea and vomiting with loose stools( resolved). Recently had right bunion surgery on 11/2018 with wound dehiscence and I and D iwth wound vac on 12/2018. On ceftriaxone and vanco(day 3 on 02/02) No acute overnight events VS stable Patient does not complaint of nausea, abdominal pain, diarrhea or vomiting. has mild burning on her right leg Last BM Thursday Objective Active Medications: Acetaminophen (Tylenol Tab*) 650 mg PO Q4H PRN PRN Reason: PAIN-MILD/TEMP >/= 100.4 Last Admin: 02/01/19 14:46 Dose: 650 mg Al Hydrox/Mg Hydrox/Simethicone (Maalox Plus*) 30 ml PO Q6H PRN PRN Reason: INDIGESTION Bupropion HCl (Bupropion Xl*) 300 mg PO QAM [facility] Last Admin: 02/01/19 08:13 Dose: 300 mg Sodium Chloride (Ns 0.9% 1000 Ml) 1,000 mls @ 125 mls/hr IV PER RATE [facility] Last Admin: 02/01/19 20:14 Dose: 125 mls/hr Ceftriaxone Sodium 1 gm/ (Sodium Chloride) 50 mls @ 100 mls/hr IVPB Q24H [facility] Last Admin: 02/01/19 22:32 Dose: 100 mls/hr Vancomycin HCl 1,250 mg/ (Sodium Chloride) 250 mls @ 166.667 mls/hr IVPB Q12H [facility] Last Admin: 02/02/19 01:27 Dose: 166.667 mls/hr Ibuprofen (Motrin Tab*) 600 mg PO Q6H PRN PRN Reason: PAIN - MILD Last Admin: 02/01/19 16:41 Dose: 600 mg Lactobacillus Rhamnosus (Lactobacillus Acidophilus*) 1 tab PO BID [facility] Last Admin: 02/01/19 20:14 Dose: 1 tab Morphine Sulfate (Morphine Inj (Syringe))*) 2 mg IV Q4H PRN PRN Reason: PAIN - SEVERE Last Admin: 02/02/19 03:38 Dose: 2 mg Ondansetron HCl (Zofran Inj*) 4 mg IV Q4H PRN PRN Reason: NAUSEA/VOMITING Last Admin: 02/01/19 20:28 Dose: 4 mg Pantoprazole Sodium (Protonix Tab*) 40 mg PO QAM [facility] Last Admin: 02/01/19 08:13 Dose: 40 mg Pharmacy Consult (Vancomycin Per Pharmacy*) 1 note FOLLOW UP .VANC PER PHARMACY [facility]; Protocol Pharmacy Profile Note (Vancomycin Trough Check) 1 note FOLLOW UP 1230 ONE Stop: 02/02/19 12:31 Vital Signs - 8 hr 02/01/19 02/01/19 02/02/19 23:30 23:54 03:26 Temperature 98.6 F 98.3 F Pulse Rate 84 82 Respiratory 16 19 23 Rate Blood Pressure 131/90 137/85 (mmHg) O2 Sat by Pulse 99 97 Oximetry 02/02/19 03:38 Temperature Pulse Rate Respiratory 16 Rate Blood Pressure (mmHg) O2 Sat by Pulse Oximetry Oxygen Devices in Use Now: None Exam: Patient is lying on abed with no acute distress. HEENT: Normocephalic and atrauamtic Lungs: Clear with no added sound Heart: S1/S2 heard with no murmur Abdomen: Soft, nondistended and nontender. normal BS sound Extremities: clean dressing on right ankle with no soaking and wound vac present. Neuro: Alert, conscious and oriented Result Diagrams: 02/02/19 05:29 02/02/19 05:29 Assess/Plan/Problems-Billing Assessment: 53 y/o F with history of depression, Migraine and recurrent nausea and vomiting( every couple of years) presented with gastroenteritis. Recently had right bunion surgery on 11/2018 with wound dehiscence and I and D with wound vac on . On ceftriaxone and vanco(day 3 on 02/02). - Patient Problems (1) Right foot infection Current Visit: Yes Status: Acute Code(s): L08.9 - LOCAL INFECTION OF THE SKIN AND SUBCUTANEOUS TISSUE, UNSP SNOMED Code(s): 632784569 Comment: - Has mild burning pain on her right foot. - Ortho following -No fever or leucosytosis -MRI -possibility of early OM -I&D tomorrow. NPO from midnight (2) Gastroenteritis Current Visit: Yes Status: Acute Code(s): K52.9 - NONINFECTIVE GASTROENTERITIS AND COLITIS, UNSPECIFIED SNOMED Code(s): 76285130 Comment: - Improved -No nausea, vomiting, abdominal painor diarrhea. Tolerating PO well (3) Depression Current Visit: Yes Status: Acute Code(s): F32.9 - MAJOR DEPRESSIVE DISORDER , SINGLE EPISODE, UNSPECIFIED SNOMED Code(s): 40916946 Comment: On bupropion (4) Migraine Current Visit: Yes Status: Acute Code(s): G43.909 - MIGRAINE, UNSP, NOT INTRACTABLE, WITHOUT STATUS MIGRAINOSUS SNOMED Code(s): 25014162 Comment: -Has history of migraine; no headadache at present -takes nsaid prn at home (5) DVT prophylaxis Current Visit: No Status: Acute Code(s): SOT5862 - SNOMED Code(s): 790823471 Comment: On heparin as patient was not ambulating uch will hold it tomorrow for surgery. (6) Full code status Current Visit: No Status: Acute Code(s): Z78.9 - OTHER SPECIFIED HEALTH STATUS SNOMED Code(s): 536638020 Status and Disposition: observation; ortho following I&D tomorrow. Attending: Rocco Morales Attestation Documenting Resident: Amanda Bhatt Supervising Physician: Luther Morales Attestation: This service has been performed in part by a resident under the direction of a teaching physician.I, Luther Morales, performed the service, or was physically present during the critical, or esposito portions of the service, furnished by the resident. I participated in the management of the patient.
[2019-02-02] MEDS: Lactobacillus Acidophilus* 1 TAB PO SCH ×2 (08:26→21:04)
[2019-02-02] MEDS: BuPROPion XL* 300 MG TAB.XL PO SCH (08:26)
[2019-02-02] MEDS: NS 0.9% 1000 ML** 1,000 ML IV SCH (08:27)
[2019-02-02] MEDS: Pantoprazole TAB * 40 MG TAB PO SCH (08:27)
[2019-02-02] MEDS ORDERED: Vancomycin Trough Check NOTE FOLLOW UP ONE (12:30)
--- NOTE | 2019-02-02 14:24 | PN ---
Progress Note - Progress Note Date of Service: 02/02/19 SOAP: Subjective: []Pt seen at bedside, she feels well without fever, chills, CP, SOB, dizziness or nausea. Left foot is not painful at rest. Objective: []Gen: NAD, nontoxic appearing LLE: wound over left great toe with EHL exposed and purulence in the wound. Minimal surrounding erythema, surrounding tissue is tender to palpation. Unable to f/e great toe actively, passive f/e nonpainful. Sensation intact to light touch distally. Assessment: []left foot wound Plan: []I&D tomorrow Dr Faust, patient aware and agreeable NPO at midnight and hold chemical DVT prophy Cont vanco Vital Signs Temp 98.5 F 02/02/19 11:30 Pulse 80 02/02/19 11:30 Resp 16 02/02/19 13:00 BP 140/88 02/02/19 11:30 Pulse Ox 100 02/02/19 11:30 Intake & Output 02/01/19 02/02/19 02/02/19 18:59 06:59 18:59 Intake Total 3099 0 1080 Output Total 600 Balance 2499 0 1080 Weight 154 lb Intake: IV Fluids 2229 NS (0.9%) 999 IVPB 30 Oral 840 0 1080 Output: Urine 600 Other: Estimated Void Medium Large Date of Last Bowel [id number] Movement # Bowel Movements 0 0 1 Estimated Stool Amount Small # Voids 1 2 2 Laboratory Last Values WBC 7.8 10^3/uL (3.5-10.8) 02/02/19 05:29 RBC 3.67 10^6 /uL (3.70-4.87) L 02/02/19 05:29 Hgb 11.6 g/dL (12.0-16.0) L 02/02/19 05:29 Hct 33 % (35-47) L 02/02/19 05:29 MCV 91 fL (80-97) 02/02/19 05:29 MCH 32 pg (27-31) H 02/02/19 05:29 MCHC 35 g/dL (31-36) 02/02/19 05:29 RDW 13 % (10-15) 02/02/19 05:29 Plt Count 234 10^3/uL (150-450) 02/02/19 05:29 MPV 8.0 fL (7.4-10.4) 02/02/19 05:29 Neut % (Auto) 74.5 % 02/02/19 05:29 Lymph % (Auto) 13.0 % 02/02/19 05:29 [place] % (Auto) 8.1 % 02/02/19 05:29 Eos % (Auto) 3.3 % 02/02/19 05:29 Baso % (Auto) 1.1 % 02/02/19 05:29 Absolute Neuts (auto) 5.8 10^3/ul (1.5-7.7) 02/02/19 05:29 Absolute Lymphs (auto) 1.0 10^3/ul (1.0-4.8) 02/02/19 05:29 Absolute Monos (auto) 0.6 10^3/ul (0-0.8) 02/02/19 05:29 Absolute Eos (auto) 0.3 10^3/ul (0-0.6) 02/02/19 05:29 Absolute Basos (auto) 0.1 10^3/ul (0-0.2) 02/02/19 05:29 Absolute Nucleated RBC 0.0 10^3/ul 02/02/19 05:29 Nucleated RBC % 0.0 02/02/19 05:29 Sodium 139 mmol/L (135-145) 02/02/19 05:29 Potassium 3.2 mmol/L (3.5-5.0) L 02/02/19 05:29 Chloride 110 mmol/L (101-111) 02/02/19 05:29 Carbon Dioxide 23 mmol/L (22-32) 02/02/19 05:29 Anion Gap 6 mmol/L (2-11) 02/02/19 05:29 BUN 9 mg/dL (6-24) 02/02/19 05:29 Creatinine 0.55 mg/dL (0.51-0.95) 02/02/19 05:29 Est GFR ( Amer) 140.4 (>60) 02/02/19 05:29 Est GFR (Non-Af Amer) 116.1 (>60) 02/02/19 05:29 BUN/Creatinine Ratio 16.4 (8-20) 02/02/19 05:29 Glucose 86 mg/dL (70-100) 02/02/19 05:29 Lactic Acid 0.5 mmol/L (0.5-2.0) 02/01/19 12:49 Calcium 7.9 mg/dL (8.6-10.3) L 02/02/19 05:29 Total Bilirubin 0.40 mg/dL (0.2-1.0) 01/31/19 15:05 AST 19 U/L (13-39) 02/01/19 12:49 ALT 52 U/L (7-52) 01/31/19 15:05 Alkaline Phosphatase 89 U/L (34-104) 01/31/19 15:05 C-Reactive Protein 5.63 mg/L (<8.01) 01/31/19 15:05 Total Protein 7.0 g/dL (6.4-8.9) 01/31/19 15:05 Albumin 4.2 g/dL (3.2-5.2) 01/31/19 15:05 Globulin 2.8 g/dL (2-4) 01/31/19 15:05 Albumin/Globulin Ratio 1.5 (1-3) 01/31/19 15:05 Lipase 13 U/L (11.0-82.0) 01/31/19 15:05 Urine Color Yellow 02/01/19 08:46 Urine Appearance Cloudy 02/01/19 08:46 Urine pH 5.0 (5-9) 02/01/19 08:46 Ur Specific [place] 1.021 (1.010-1.030) 02/01/19 08:46 Urine Protein Negative (Negative) 02/01/19 08:46 Urine Ketones 1+ (Negative) A 02/01/19 08:46 Urine Blood Negative (Negative) 02/01/19 08:46 Urine Nitrate Negative (Negative) 02/01/19 08:46 Urine Bilirubin Negative (Negative) 02/01/19 08:46 Urine Urobilinogen Negative (Negative) 02/01/19 08:46 Ur Leukocyte Esterase Trace (Negative) A 02/01/19 08:46 Urine WBC (Auto) 1+(6-10/hpf) (Absent) A 02/01/19 08:46 Urine RBC (Auto) Trace(0-2/hpf) (Absent) 02/01/19 08:46 Ur Squamous Epith Cells Present (Absent) A 02/01/19 08:46 Urine Bacteria Absent (Absent) 02/01/19 08:46 Urine Glucose Negative (Negative) 02/01/19 08:46 Vancomycin Trough 11.0 mcg/mL 02/02/19 12:38
[2019-02-02] MEDS: Heparin VIAL(*) 5000 UNITS/ML VIAL (FIVE THOUSAND) SUBCUT SCH ×2 (14:41→21:05)
[2019-02-02] MEDS ORDERED: Potassium Chlor TAB* 20 MEQ TAB.ER PO ONE (18:18)
[2019-02-03] MEDS: Vancomycin(*) 1,250 MG in NS 0.9% 250 ML* 250 ML IVPB SCH ×2 (00:59→14:41)
[2019-02-03] MEDS: Morphine INJ* 2 MG/ML 1 ML SYRINGE (TWO MG - NEW SYRINGE VERSION) IV PRN ×3 (01:03→22:04)
--- NOTE | 2019-02-03 06:30 | PN ---
Subjective Date of Service: 02/03/19 Interval History: HD 4 0n 02/03 53 y/o F with history of depression, Migraine and recurrent nausea and vomiting( every couple of years) presented with nausea and vomiting with loose stools( resolved). Recently had right bunion surgery on 11/2018 with wound dehiscence and I and D iwth wound vac on 12/2018. On vanco(day 3 on 02/03). I&D planned today as per ortho No acute overnight events. VS stable Had BM yesterday Complains of burning on right foot. Had 2 BM today- soft No abdominal pain, nausea or vomiting. Objective Active Medications: Acetaminophen (Tylenol Tab*) 650 mg PO Q4H PRN PRN Reason: PAIN-MILD/TEMP >/= 100.4 Last Admin: 02/01/19 14:46 Dose: 650 mg Al Hydrox/Mg Hydrox/Simethicone (Maalox Plus*) 30 ml PO Q6H PRN PRN Reason: INDIGESTION Bupropion HCl (Bupropion Xl*) 300 mg PO [facility] Last Admin: 02/02/19 08:26 Dose: 300 mg Vancomycin HCl 1,250 mg/ (Sodium Chloride) 250 mls @ 166.667 mls/hr IVPB Q12H [facility] Last Admin: 02/03/19 00:59 Dose: 166.667 mls/hr Ibuprofen (Motrin Tab*) 600 mg PO Q6H PRN PRN Reason: PAIN - MILD Last Admin: 02/01/19 16:41 Dose: 600 mg Lactobacillus Rhamnosus (Lactobacillus Acidophilus*) 1 tab PO BID [facility] Last Admin: 02/02/19 21:04 Dose: 1 tab Morphine Sulfate (Morphine Inj (Syringe))*) 2 mg IV Q4H PRN PRN Reason: PAIN - SEVERE Last Admin: 02/03/19 01:03 Dose: 2 mg Ondansetron HCl (Zofran Inj*) 4 mg IV Q4H PRN PRN Reason: NAUSEA/VOMITING Last Admin: 02/01/19 20:28 Dose: 4 mg Pantoprazole Sodium (Protonix Tab*) [facility] Last Admin: 02/02/19 08:27 Dose: 40 mg Pharmacy Consult (Vancomycin Per Pharmacy*) 1 note FOLLOW UP .VANC PER PHARMACY [facility]; Protocol Pharmacy Profile Note (Vancomycin Trough Check) 1 note FOLLOW UP 1230 ONE Stop: 02/03/19 12:31 Vital Signs - 8 hr 02/02/19 02/03/19 02/03/19 23:15 01:03 01:04 Temperature 98.3 F Pulse Rate 81 Respiratory 16 18 18 Rate Blood Pressure 131/73 (mmHg) O2 Sat by Pulse 98 Oximetry 02/03/19 03:15 Temperature 98.5 F Pulse Rate 78 Respiratory 16 Rate Blood Pressure 130/82 (mmHg) O2 Sat by Pulse 97 Oximetry Oxygen Devices in Use Now: None Exam: Patient is lying on a bed with no acute distress. HEENT: Normocephalic and atrauamtic Lungs: Clear with no added sound Heart: S1/S2 heard with no murmur Abdomen: Soft, nondistended and nontender. normal BS sound Extremities: clean dressing on right ankle with no soaking and wound vac present. Neuro: Alert, conscious and oriented Result Diagrams: 02/03/19 08:23 02/03/19 08:23 Assess/Plan/Problems-Billing Assessment: 53 y/o F with history of depression, Migraine and recurrent nausea and vomiting( every couple of years) presented with gastroenteritis. Recently had right bunion surgery on 11/2018 with wound dehiscence and I and D with wound vac on . On vanco(day 4 on 02/03). - Patient Problems (1) Right foot infection Current Visit: Yes Status: Acute Code(s): L08.9 - LOCAL INFECTION OF THE SKIN AND SUBCUTANEOUS TISSUE, UNSP SNOMED Code(s): 810308245 Comment: - Has mild burning pain on her right foot. - Ortho following -No fever or leucocytosis -MRI -possibility of early OM -I&D today NPO from midnight (2) Gastroenteritis Current Visit: Yes Status: Acute Code(s): K52.9 - NONINFECTIVE GASTROENTERITIS AND COLITIS, UNSPECIFIED SNOMED Code(s): 70733872 Comment: - Resolved -No nausea, vomiting, abdominal pain or diarrhea. Tolerating PO well (3) Depression Current Visit: Yes Status: Acute Code(s): F32.9 - MAJOR DEPRESSIVE DISORDER , SINGLE EPISODE, UNSPECIFIED SNOMED Code(s): 87636959 Comment: On bupropion (4) Migraine Current Visit: Yes Status: Acute Code(s): G43.909 - MIGRAINE, UNSP, NOT INTRACTABLE, WITHOUT STATUS MIGRAINOSUS SNOMED Code(s): 09903712 Comment: -Has history of migraine; no headadache at present -takes nsaid prn at home (5) DVT prophylaxis Current Visit: No Status: Acute Code(s): IXD7136 - SNOMED Code(s): 437684734 Comment: On hold for surgery (6) Full code status Current Visit: No Status: Acute Code(s): Z78.9 - OTHER SPECIFIED HEALTH STATUS SNOMED Code(s): 095114386 Status and Disposition: Inpatient; ortho following I&D tomorrow. Attending: Rocco Morales Attestation Documenting Resident: Amanda Bhatt Supervising Physician: Luther Morales Attestation: This service has been performed in part by a resident under the direction of a teaching physician.I, Luther Morales, performed the service, or was physically present during the critical, or esposito portions of the service, furnished by the resident. I participated in the management of the patient.
[2019-02-03] MEDS: Lactobacillus Acidophilus* 1 TAB PO SCH ×2 (07:59→20:05)
[2019-02-03] MEDS: BuPROPion XL* 300 MG TAB.XL PO SCH (07:59)
[2019-02-03] MEDS: Pantoprazole TAB * 40 MG TAB PO SCH (07:59)
[2019-02-03 08:37] LABS: ABS Eosinophils 0.2 10^3/ul (0-0.6); ABS Lymphocytes 0.8 10^3/ul (1.0-4.8); ABS Monocytes 0.5 10^3/ul (0-0.8); ABS Neutrophils 4.5 10^3/ul (1.5-7.7); Eosinophil % 3.5 %; Hematocrit 36 % (35-47); Hemoglobin 12.8 g/dL (12.0-16.0); Lymphocyte % 13.2 %; Mean Corpuscular HGB Conc 35 g/dL (31-36); Mean Corpuscular Hemoglobin 32 pg (27-31); Mean Corpuscular Volume 89 fL (80-97); Mean Platelet Volume 7.6 fL (7.4-10.4); Nucleated Red Blood Cells % 0.1; Platelet Count 235 10^3/uL (150-450); Red Blood Count 4.06 10^6 /uL (3.70-4.87); Red Cell Distribution Width 13 % (10-15); White Blood Count 6.1 10^3/uL (3.5-10.8)
[2019-02-03 08:56] LABS: BUN/Creatinine Ratio 8.3 (8-20); Magnesium 1.8 mg/dL (1.9-2.7); Potassium 3.4 mmol/L (3.5-5.0)
[2019-02-03] MEDS ORDERED: Buffered Lidocaine 1% SYRIN* 1 ML/SYRINGE INTRADERM ONE (12:06)
[2019-02-03] MEDS ORDERED: Vancomycin Trough Check NOTE FOLLOW UP ONE (12:30)
[2019-02-03] MEDS ORDERED: Lactated Ringers 1000 ML Bag* 1,000 ML IV SCH (13:00)
[2019-02-03] MEDS ORDERED: Midazolam* 1 MG/ML 2 ML VIAL (2 MG) ONE (14:29)
[2019-02-03] MEDS ORDERED: fentaNYL* 50 MCG/ML 2 ML VIAL (100 MCG VIAL) ONE ×6 (14:29→16:25)
[2019-02-03] MEDS ORDERED: Lidocaine 2% PF* 10 ML AMP ONE (14:38)
[2019-02-03] MEDS ORDERED: Lidocaine 2% PF * 5 ML VIAL ONE (14:46)
[2019-02-03] MEDS ORDERED: Propofol* 10 MG/ML 20 ML BTL ONE (14:46)
[2019-02-03] MEDS ORDERED: diPHENhydraMINE IV* 50 MG/ML 1 ml VIAL (BENADRYL) IV PRN (15:06)
[2019-02-03] MEDS ORDERED: Naloxone* 0.4 MG/ML 1 ML VIAL IV PRN (15:06)
[2019-02-03] MEDS ORDERED: DiMENhydriNATE IV* 50 MG/ML VIAL IV PUSH PRN (15:06)
[2019-02-03] MEDS ORDERED: HYDROcodone/ACETAMIN 5-325 MG* 1 TAB PO PRN (15:06)
[2019-02-03] MEDS ORDERED: Ketorolac INJ* 30 MG/ML 1 ML VIAL ONE (15:08)
[2019-02-03] MEDS ORDERED: KETAMINE HCL* 50 MG/ML 10 ML VIAL ONE (15:21)
[2019-02-03] MEDS ORDERED: HYDROcodone/ACETAMIN 5-325 MG* 1 TAB ONE (15:51)
[2019-02-03] MEDS: fentaNYL* 50 MCG/ML 2 ML VIAL (100 MCG VIAL) IV PRN ×5 (15:54→16:26)
[2019-02-03] MEDS ORDERED: Potassium Chlor TAB* 20 MEQ TAB.ER PO ONE (19:30)
[2019-02-03] MEDS ORDERED: Magnesium Sulfate 2 GM IV* 2 GM/50 ML BAG IVPB ONE (19:30)
[2019-02-03] MEDS: Acetaminophen TAB* 325 MG PO PRN (20:04)
[2019-02-03] MEDS ORDERED: Morphine INJ* 4 MG/ML 1 ML SYRINGE (NEW SYRINGE VERSION) ONE (23:57)
[2019-02-04] MEDS: Morphine INJ* 4 MG/ML 1 ML SYRINGE (NEW SYRINGE VERSION) IV PRN ×4 (00:03→08:56)
[2019-02-04] MEDS: Vancomycin(*) 1,250 MG in NS 0.9% 250 ML* 250 ML IVPB SCH ×2 (00:22→14:12)
--- NOTE | 2019-02-04 03:47 | OP ---
DATE OF OPERATION: 02/03/19 - ROOM #[id number] DATE OF : 67 SURGEON: Aubrey Faust MD PRODUCT LISTER: Kyler Meeks PA-C PRE-OP DIAGNOSIS: Osteomyelitis, right first metatarsophalangeal joint. POST-OP DIAGNOSIS: Osteomyelitis, right first metatarsophalangeal joint. OPERATIVE PROCEDURE: Debridement, right first MTP joint. DESCRIPTION OF PROCEDURE: The patient was taken to the operating room where we excised the wound edges as well as the EHL tendon which was desiccated throughout the length of the wound, which was approximately 5 cm in length. There was fibrinous debris within the TMT joint and also around the osteotomy site proximally, which on clinical examination did not appear to be healed. We took the micro sagittal saw and transected the metatarsal just proximal to the area of maximal edema on the MRI and distally the proximal base of the first phalanx. We also excised the sesamoids and the granulomatous tissue plantar to the first MTP joint. We dropped the tourniquet and obtained hemostasis. We irrigated thoroughly with saline. We sent cultures from the deep wound as well as all the material for pathology. We placed a VAC sponge between the metatarsal and the phalanx and sealed this and placed to 125 mm pressure with an Heraclio wrap. [id number]/[facility] #: [id number] MOSHE
[2019-02-04 06:32] LABS: BUN/Creatinine Ratio 7.6 (8-20); Calcium 8.9 mg/dL (8.6-10.3); EGFR African American 113.8 (>60); Potassium 3.9 mmol/L (3.5-5.0)
--- NOTE | 2019-02-04 06:43 | PN ---
Subjective Date of Service: 02/04/19 Interval History: HD 5 0n 02/04 53 y/o F with history of depression, Migraine and recurrent nausea and vomiting( every couple of years) presented with nausea and vomiting with loose stools( resolved). Recently had right bunion surgery on 11/2018 with wound dehiscence and I and D iwth wound vac on 12/2018. On vanco(day 4 on 02/04). s/p I&D on Overnight events- worsening pain- 3mg Iv Morphine given VS stable Complains of burning pain on her right foot. No nausea, vomiting and abdominal pain. Objective Active Medications: Acetaminophen (Tylenol Tab*) 650 mg PO Q4H PRN PRN Reason: PAIN-MILD/TEMP >/= 100.4 Last Admin: 02/03/19 20:04 Dose: 650 mg Al Hydrox/Mg Hydrox/Simethicone (Maalox Plus*) 30 ml PO Q6H PRN PRN Reason: INDIGESTION Bupropion HCl (Bupropion Xl*) 300 mg PO [facility] Last Admin: 02/03/19 07:59 Dose: 300 mg Vancomycin HCl 1,250 mg/ (Sodium Chloride) 250 mls @ 166.667 mls/hr IVPB Q12H [facility] Last Admin: 02/04/19 00:22 Dose: 166.667 mls/hr Ibuprofen (Motrin Tab*) 600 mg PO Q6H PRN PRN Reason: PAIN - MILD Last Admin: 02/01/19 16:41 Dose: 600 mg Lactobacillus Rhamnosus (Lactobacillus Acidophilus*) 1 tab PO BID [facility] Last Admin: 02/03/19 20:05 Dose: 1 tab Morphine Sulfate (Morphine Inj (Syringe)*) 3 mg IV Q2H PRN PRN Reason: PAIN - SEVERE Last Admin: 02/04/19 05:42 Dose: 3 mg Ondansetron HCl (Zofran Inj*) 4 mg IV Q4H PRN PRN Reason: NAUSEA/VOMITING Last Admin: 02/01/19 20:28 Dose: 4 mg Pantoprazole Sodium (Protonix Tab*) [facility] Last Admin: 02/03/19 07:59 Dose: 40 mg Pharmacy Consult (Vancomycin Per Pharmacy*) 1 note FOLLOW UP .VANC PER PHARMACY [facility]; Protocol Vital Signs - 8 hr 02/03/19 02/03/19 02/04/19 23:04 23:27 00:03 Temperature 98.1 F Pulse Rate 80 Respiratory 16 17 18 Rate Blood Pressure 130/73 (mmHg) O2 Sat by Pulse 98 Oximetry 02/04/19 02/04/19 02/04/19 00:10 01:26 02:52 Temperature Pulse Rate Respiratory 17 17 Rate Blood Pressure (mmHg) O2 Sat by Pulse 98 Oximetry 02/04/19 02/04/19 02/04/19 03:03 03:58 05:42 Temperature 99 F Pulse Rate 78 Respiratory 16 16 18 Rate Blood Pressure 125/76 (mmHg) O2 Sat by Pulse 96 Oximetry Oxygen Devices in Use Now: None Exam: Patient is lying on a bed with no acute distress. HEENT: Normocephalic and atrauamtic Lungs: Clear with no added sound Heart: S1/S2 heard with no murmur Abdomen: Soft, nondistended and nontender. normal BS sound Extremities: clean dressing on right ankle with no soaking and wound vac present. Neuro: Alert, conscious and oriented Result Diagrams: 02/03/19 08:23 02/04/19 12:27 Assess/Plan/Problems-Billing Assessment: 53 y/o F with history of depression, Migraine and recurrent nausea and vomiting( every couple of years) presented with gastroenteritis. Recently had right bunion surgery on 11/2018 with wound dehiscence and I and D with wound vac on ;Found to have osteomyelitis; s/p I&D(on 02/03). On vanco(day 5 on 02/04). - Patient Problems (1) Right foot infection Current Visit: Yes Status: Acute Code(s): L08.9 - LOCAL INFECTION OF THE SKIN AND SUBCUTANEOUS TISSUE, UNSP SNOMED Code(s): 485739762 Comment: - Has mild burning pain on her right foot. - Ortho following -I&D on 02/03 -On vanco -pain controlled (2) Gastroenteritis Current Visit: Yes Status: Acute Code(s): K52.9 - NONINFECTIVE GASTROENTERITIS AND COLITIS, UNSPECIFIED SNOMED Code(s): 94297619 Comment: - Resolved -No nausea, vomiting, abdominal pain or diarrhea. Tolerating PO well (3) Depression Current Visit: Yes Status: Acute Code(s): F32.9 - MAJOR DEPRESSIVE DISORDER , SINGLE EPISODE, UNSPECIFIED SNOMED Code(s): 13770495 Comment: On bupropion (4) Migraine Current Visit: Yes Status: Acute Code(s): G43.909 - MIGRAINE, UNSP, NOT INTRACTABLE, WITHOUT STATUS MIGRAINOSUS SNOMED Code(s): 55516254 Comment: -Has history of migraine; no headadache at present -takes nsaid prn at home (5) DVT prophylaxis Current Visit: No Status: Acute Code(s): SHO1042 - SNOMED Code(s): 484694847 Comment: On lovenox (6) Full code status Current Visit: No Status: Acute Code(s): Z78.9 - OTHER SPECIFIED HEALTH STATUS SNOMED Code(s): 330443798 Status and Disposition: Inpatient; ortho following . Attending: Rocco Morales Attestation Documenting Resident: Amanda Bhatt Supervising Physician: Luther Morales Attestation: This service has been performed in part by a resident under the direction of a teaching physician.I, Luther Morales, performed the service, or was physically present during the critical, or esposito portions of the service, furnished by the resident. I participated in the management of the patient.
[2019-02-04] MEDS: Lactobacillus Acidophilus* 1 TAB PO SCH ×2 (08:57→20:48)
[2019-02-04] MEDS: Acetaminophen TAB* 325 MG PO PRN (08:57)
[2019-02-04] MEDS: BuPROPion XL* 300 MG TAB.XL PO SCH (08:57)
[2019-02-04] MEDS: Pantoprazole TAB * 40 MG TAB PO SCH (08:57)
[2019-02-04] MEDS: Ibuprofen TAB* 600 MG PO PRN ×2 (11:27→17:30)
[2019-02-04] MEDS: Enoxaparin(*) 40 MG/0.4 ML SYR SUBCUT SCH (11:28)
[2019-02-04 12:52] LABS: EGFR African American 109.9 (>60); EGFR Non-African American 90.9 (>60)
[2019-02-04 13:45] LABS: Vancomycin Trough 12.7 mcg/mL
--- NOTE | 2019-02-04 14:28 | CONS ---
CONSULTATION REPORT: DATE OF CONSULT: 02/04/19 PRIMARY CARE PROVIDER: Dr. Aubrey Calderon. PROVIDER REQUESTING CONSULTATION: Dr. Aubrey Faust. CONSULTING SERVICE: Infectious Disease. PROVIDER: Katheryn Solo NP ATTENDING PROVIDER: Dr. Baron Galan * (dictated by Katheryn Solo NP). REASON FOR CONSULT: Right first toe infection. IMPRESSION: 1. Right first toe acute osteomyelitis with associated cellulitis. MRI shows osteomyelitis with cellulitis. She appeared to have a draining sinus tract dorsally without a well-defined abscess. She is status post debridement of the right first metatarsal phalangeal joint with Dr. Faust on 02/03/19. Wound cultures from surgery are still pending, but show 3+ epithelial cells, no neutrophils and no organisms seen. Previously, she has grown Enterococcus faecalis, Stenotrophomonas maltophilia, methicillin-resistant Staph aureus, and Staph aureus. She had been on a couple courses of antibiotics outpatient including Keflex, Cipro, and Bactrim with Cipro being the most recent. She has no leukocytosis. She has been afebrile. 2. Diarrhea. The patient was having diarrhea at the time of admission. C. diff was negative, I suspect this was secondary to the antibiotics she had been on. PLAN/RECOMMENDATIONS: Recommend continuing vancomycin for now, trough goal 15 to 20. She will need a long course of antibiotics in the setting of osteomyelitis. She will need to have a PICC line placed. We will continue to follow along. Further recommendations will be based off of the patient's clinical course and culture results from the operating room this week. HISTORY OF PRESENT ILLNESS: Ms. Gu is a 53-year-old female with past medical history significant for depression, history of recurrent nausea, vomiting, pancreatitis, migraines. Initially underwent a right hallux valgus repair with Dr. Stein on 12/10/18. She states that she was seen in his office on 12/29/18 and had sutures removed, at which point the incision opened up. She had cultures obtained at that time showing Staph aureus and she states she was placed on antibiotics, she is unsure which one by Dr. Stein. He continued to follow with her and took her to the operating room on 01/14/19 in the setting of cellulitis and abscess and dehiscence of a surgical wound, for an incision and drainage with pulse lavage. At that point, cultures obtained showed methicillin- resistant Staph aureus and Enterococcus faecalis. She was placed on a course of Bactrim, which caused nausea and vomiting. She had a second culture on 01/14/19 showing Enterococcus faecalis and Stenotrophomonas maltophilia. Due to the side effects from the Bactrim, she was placed on a Cipro. In the meantime, she had also been seen in consultation by Dr. Faust outpatient. She presented to the hospital on the morning of 01/31/19 with complaints of nausea, vomiting, abdominal pain, having 3 to 4 loose bowel movements a day. She had an abdominal CT showing colitis. C. diff testing on 02/02/19 was negative. She was again seen by Dr. Faust while in the hospital, who is concerned that the wound was not going to heal as there was exposed tendon, which appeared to be desiccated with increasing erythema. She had a foot x-ray showing hardware removal from the distal first metatarsal with lucency in the distal first metatarsal. It was recommended that she have an MRI scan. She underwent an MRI on 02/01/19, showing previous bunionectomy and first metatarsal ostectomy with residual nonunion appearing oblique ostectomy line with corresponding abnormal marrow signal extending into the distal third of the shaft of the metatarsal, increased on STIR and decreased on T1 weighted imaging suggesting superimposing osteomyelitis, which also noted to be an abnormal marrow signal in the sesamoids, most pronounced in the medial sesamoids , increased in STIR and decreased in T1 with surrounding cellulitis. On , she was taken to the OR with Dr. Faust and underwent debridement of the right first MTP joint. During her hospitalization, she had blood cultures with no growth. She has been afebrile, no leukocytosis. Cultures obtained in the OR yesterday are still pending. She denies fevers, chills, cough. She reports pain in her right foot that she describes as sharp and an 8/10 pain prior to pain medication being given. She denies nausea, vomiting, or diarrhea, constipation, abdominal pain, urinary symptoms, rash, or recent travel. PAST MEDICAL HISTORY: 1. Depression. 2. Recurrent nausea, vomiting. 3. Pancreatitis. 4. Migraines. PAST SURGICAL HISTORY: 1. Status post right bunionectomy with hardware on 12/10/18. 2. Status post excision of hardware on 01/14/19 with incision and drainage. 3. Status post cholecystectomy in 1999. 4. Status post tubal ligation. MEDICATIONS: Home medications: 1. Bupropion XL 300 mg by mouth daily. 2. Multivitamin 1 tablet by mouth daily. 3. Prilosec 20 mg by mouth daily. Hospital medications: 1. Acetaminophen 650 mg by mouth every 4 hours as needed for pain. 2. Maalox Plus 30 mL by mouth every 6 hours as needed for indigestion. 3. Bupropion XL 300 mg by mouth every morning. 4. Lovenox 40 mg subcutaneous daily. 5. Ibuprofen 600 mg by mouth every 6 hours as needed. 6. Lactobacillus 1 tablet by mouth twice daily. 7. Morphine sulfate 3 mg IV every 2 hours as needed for pain. 8. Zofran 4 mg IV every 4 hours as needed for nausea. 9. Oxycodone 5 mg by mouth every 4 hours as needed for pain. 10. Protonix 40 mg by mouth daily. 11. Vancomycin 1250 mg IV every 12 hours. ALLERGIES: No known drug allergies. FAMILY HISTORY: Mother with a history of rheumatoid arthritis and from complications of bradycardia. Father with a history of diabetes and passed from bladder cancer. No family history of recurrent resistant infections. SOCIAL HISTORY: Denies alcohol, recreational drug use. She is a former smoker , quitting in 2013. She has a 15-pack year smoking history. REVIEW OF SYSTEMS: I performed a 10-point review of systems. All the penitent positives and negatives as mentioned in the history of present illness. Remaining review of systems are negative. PHYSICAL EXAM: Vital Signs: Temperature 99.0, heart rate 74, respiratory rate 20, O2 sat 99% on room air, blood pressure 138/77. General Appearance: She is alert, appears to be in no acute distress, sitting up in bed. Head: Normocephalic, atraumatic. EENT: Extraocular movements are intact. No subconjunctival hemorrhage. Moist mucous membranes. Neck: Supple. No lymphadenopathy. Neurological: Alert and oriented x4. Cranial nerves II through XII are grossly intact. Cardiovascular: Regular rate and rhythm. S1, S2 present. There are no murmurs, rubs, or gallops heard. Respiratory: Lungs are clear to auscultation bilaterally. There is no accessory muscle use. Abdomen: Bowel sounds present in all 4 quadrants. Abdomen is soft, nontender, nondistended. Extremities: No lower extremity edema. DP/PT pulses are 2+ on the left, unable to palpate on the right due to surgical dressing. Extremities : No lower extremity edema. Musculoskeletal: No clubbing or cyanosis noted. She exhibits good strength in all extremities. Psychological: Calm and cooperative. Skin: No rashes or abnormalities seen. She has a surgical dressing with a wound VAC in place to her right foot. DIAGNOSTIC STUDIES/LAB DATA: CBC from 02/03/19: white blood cell count 6.1, hemoglobin 12.8, hematocrit 36, platelet count 235. BMP from today: sodium 142 , potassium 3.9, chloride 108, CO2 28, BUN 5, creatinine 0.66, glucose 97. CRP on admission on 01/31/19 was 5.63. Please see impression and recommendations outlined above, recommendations have been discussed with Dr. Amanda Bhatt. Thank you for asking us to see Ms. Gu in consultation. The case has been reviewed with my attending, Dr. Galan. Reviewed by SOFÍA SNIDER 02/12/19 1400 [id number]/[facility] #: [id number]
[2019-02-04] MEDS: oxyCODONE TAB* 5 MG TAB PO PRN ×2 (14:59→20:48)
[2019-02-04] MEDS: Vancomycin(*) 1,000 MG in NS 0.9% 250 ML* 250 ML IVPB SCH ×2 (15:27→22:57)
--- NOTE | 2019-02-04 15:33 | PN ---
Progress Note - Progress Note Date of Service: 02/04/19 SOAP: Subjective: [Pt seen in chair washing her hair. She feels well without fever, chills, CP, SOB, dizziness or nausea. Left foot is not painful at rest. Objective: []Gen: NAD, nontoxic appearing LLE: Dressing is c/d/i. Wound vac is present with minimal drainage at this point . passive f/e nonpainful. Sensation intact to light touch distally. Vital Signs Temp 99.0 F 02/04/19 07:41 Pulse 74 02/04/19 07:41 Resp 18 02/04/19 14:59 BP 138/77 02/04/19 07:41 Pulse Ox 99 02/04/19 07:41 Intake & Output 02/03/19 02/04/19 02/04/19 18:59 06:59 18:59 Intake Total 1390 1021 480 Balance 1390 1021 480 Intake: IV Fluids 800 1021 LR 800 1021 Oral 590 0 480 Other: Estimated Void Large # Bowel Movements 0 # Voids 1 Assessment: []Debridement right first MTP joint with wound vac placement Plan: [] Continue with Wound Vac Continue with pain medication Continue with PT Cont vanco Possible wound vac placement on 02/06/2019
[2019-02-05] MEDS: Ibuprofen TAB* 600 MG PO PRN ×2 (00:13→10:21)
[2019-02-05] MEDS: Morphine INJ* 4 MG/ML 1 ML SYRINGE (NEW SYRINGE VERSION) IV PRN ×7 (01:53→22:33)
[2019-02-05 05:56] LABS: ABS Eosinophils 0.4 10^3/ul (0-0.6); ABS Lymphocytes 0.7 10^3/ul (1.0-4.8); ABS Monocytes 0.4 10^3/ul (0-0.8); ABS Neutrophils 3.2 10^3/ul (1.5-7.7); Eosinophil % 7.7 %; Hematocrit 37 % (35-47); Hemoglobin 12.2 g/dL (12.0-16.0); Lymphocyte % 14.3 %; Mean Corpuscular HGB Conc 33 g/dL (31-36); Mean Corpuscular Hemoglobin 31 pg (27-31); Mean Corpuscular Volume 95 fL (80-97); Nucleated Red Blood Cells % 0.1; Platelet Count 209 10^3/uL (150-450); Red Blood Count 3.93 10^6 /uL (3.70-4.87); Red Cell Distribution Width 14 % (10-15); White Blood Count 4.7 10^3/uL (3.5-10.8)
[2019-02-05 06:12] LABS: BUN/Creatinine Ratio 9.7 (8-20); Calcium 8.9 mg/dL (8.6-10.3); EGFR African American 122.3 (>60); EGFR Non-African American 101.1 (>60)
--- NOTE | 2019-02-05 06:49 | PN ---
Subjective Date of Service: 02/05/19 Interval History: HD 6 0n 02/05 53 y/o F with history of depression, Migraine and recurrent nausea and vomiting( every couple of years) presented with nausea and vomiting with loose stools( resolved). Recently had right bunion surgery on 11/2018 with wound dehiscence and I and D with wound vac on 12/2018. On vanco(day 5 on 02/05). s/p I&D on No acute overnight events VS stable complains of burning foot pain No nausea, vomiting and abd pain Objective Active Medications: Acetaminophen (Tylenol Tab*) 650 mg PO Q4H PRN PRN Reason: PAIN-MILD/TEMP >/= 100.4 Last Admin: 02/04/19 08:57 Dose: 650 mg Al Hydrox/Mg Hydrox/Simethicone (Maalox Plus*) 30 ml PO Q6H PRN PRN Reason: INDIGESTION Bupropion HCl (Bupropion Xl*) 300 mg PO QAM [facility] Last Admin: 02/04/19 08:57 Dose: 300 mg Enoxaparin Sodium (Lovenox(*)) 40 mg SUBCUT Q24H [facility] Last Admin: 02/04/19 11:28 Dose: 40 mg Vancomycin HCl 1,000 mg/ (Sodium Chloride) 250 mls @ 166.667 mls/hr IVPB Q8H [facility] Last Admin: 02/04/19 22:57 Dose: 166.667 mls/hr Ibuprofen (Motrin Tab*) 600 mg PO Q6H PRN PRN Reason: PAIN - MILD Last Admin: 02/05/19 00:13 Dose: 600 mg Lactobacillus Rhamnosus (Lactobacillus Acidophilus*) 1 tab PO BID [facility] Last Admin: 02/04/19 20:48 Dose: 1 tab Morphine Sulfate (Morphine Inj (Syringe)*) 3 mg IV Q2H PRN PRN Reason: PAIN - SEVERE Last Admin: 02/05/19 04:15 Dose: 3 mg Ondansetron HCl (Zofran Inj*) 4 mg IV Q4H PRN PRN Reason: NAUSEA/VOMITING Last Admin: 02/01/19 20:28 Dose: 4 mg Oxycodone HCl (Roxycodone Tab*) 5 mg PO Q4H PRN PRN Reason: PAIN - SEVERE Last Admin: 02/04/19 20:48 Dose: 5 mg Pantoprazole Sodium (Protonix Tab*) 40 mg PO QAM [facility] Last Admin: 02/04/19 08:57 Dose: 40 mg Pharmacy Consult (Vancomycin Per Pharmacy*) 1 note FOLLOW UP .VANC PER PHARMACY [facility]; Protocol Pharmacy Profile Note (Vancomycin Trough Check) 1 note FOLLOW UP 1430 ONE Stop: 02/05/19 14:31 Vital Signs - 8 hr 02/04/19 02/05/19 02/05/19 23:02 00:26 01:53 Temperature 96.9 F Pulse Rate 71 Respiratory 19 22 19 Rate Blood Pressure 139/79 (mmHg) O2 Sat by Pulse 98 Oximetry 02/05/19 02/05/19 02/05/19 03:27 04:06 04:15 Temperature 97.3 F Pulse Rate 73 Respiratory 17 19 Rate Blood Pressure 139/80 (mmHg) O2 Sat by Pulse 99 Oximetry 02/05/19 05:51 Temperature Pulse Rate Respiratory 18 Rate Blood Pressure (mmHg) O2 Sat by Pulse Oximetry Oxygen Devices in Use Now: None Exam: Patient is lying on a bed with no acute distress. HEENT: Normocephalic and atrauamtic Lungs: Clear with no added sound Heart: S1/S2 heard with no murmur Abdomen: Soft, nondistended and nontender. normal BS sound Extremities: clean dressing on right ankle with no soaking and wound vac present - serosanguinous discharge Neuro: Alert, conscious and oriented Result Diagrams: 02/05/19 05:40 02/05/19 14:35 Assess/Plan/Problems-Billing Assessment: 53 y/o F with history of depression, Migraine and recurrent nausea and vomiting( every couple of years) presented with gastroenteritis. Recently had right bunion surgery on 11/2018 with wound dehiscence and I and D with wound vac on ;Found to have osteomyelitis; s/p I&D(on 02/03). On vanco(day 6 on 02/05). - Patient Problems (1) Right foot infection Current Visit: Yes Status: Acute Code(s): L08.9 - LOCAL INFECTION OF THE SKIN AND SUBCUTANEOUS TISSUE, UNSP SNOMED Code(s): 962023788 Comment: - Has mild burning pain on her right foot. - Ortho following -I&D on 02/03 -On vanco (day 6 on 02/05) -pain controlled (2) Gastroenteritis Current Visit: Yes Status: Acute Code(s): K52.9 - NONINFECTIVE GASTROENTERITIS AND COLITIS, UNSPECIFIED SNOMED Code(s): 64056447 Comment: - Resolved -No nausea, vomiting, abdominal pain or diarrhea. -Tolerating PO well (3) Depression Current Visit: Yes Status: Acute Code(s): F32.9 - MAJOR DEPRESSIVE DISORDER , SINGLE EPISODE, UNSPECIFIED SNOMED Code(s): 07675104 Comment: On bupropion (4) Migraine Current Visit: Yes Status: Acute Code(s): G43.909 - MIGRAINE, UNSP, NOT INTRACTABLE, WITHOUT STATUS MIGRAINOSUS SNOMED Code(s): 36629959 Comment: -Has history of migraine; no headadache at present -takes nsaid prn at home (5) DVT prophylaxis Current Visit: No Status: Acute Code(s): GVX1811 - SNOMED Code(s): 069250555 Comment: On lovenox (6) Full code status Current Visit: No Status: Acute Code(s): Z78.9 - OTHER SPECIFIED HEALTH STATUS SNOMED Code(s): 418022486 Status and Disposition: Inpatient; ortho following . Attending: Rocco Morales Attestation Documenting Resident: Amanda Bhatt Supervising Physician: Luther Morales Attestation: This service has been performed in part by a resident under the direction of a teaching physician.I, Luther Morales, performed the service, or was physically present during the critical, or esposito portions of the service, furnished by the resident. I participated in the management of the patient.
[2019-02-05] MEDS: Vancomycin(*) 1,000 MG in NS 0.9% 250 ML* 250 ML IVPB SCH ×3 (07:16→22:41)
[2019-02-05] MEDS: Lactobacillus Acidophilus* 1 TAB PO SCH ×2 (09:07→21:04)
[2019-02-05] MEDS: Pantoprazole TAB * 40 MG TAB PO SCH (09:07)
[2019-02-05] MEDS: BuPROPion XL* 300 MG TAB.XL PO SCH (09:07)
--- NOTE | 2019-02-05 11:06 | PN ---
Progress Note - Progress Note Date of Service: 02/05/19 SOAP: Subjective: Pt is doing well. Denies F/C, CP/SOB, calf pain. Objective: PE- 53 y/o WDWN F NAD RLE- wound vac in place and functioning minimal drainage, calf soft NT, +DF/PF ankle, SILT distally, brisk cap refill Vital Signs Temp Pulse Resp BP Pulse Ox 98.1 F 72 16 135/79 99 02/05/19 07:15 02/05/19 07:15 02/05/19 10:21 02/05/19 07:15 02/05/19 07:15 Laboratory Results - last 24 hr 02/04/19 02/05/19 02/05/19 12:27 05:40 05:40 WBC 4.7 RBC 3.93 Hgb 12.2 Hct 37 MCV 95 MCH 31 MCHC 33 RDW 14 Plt Count 209 MPV 8.0 Neut % (Auto) 68.1 Lymph % (Auto) 14.3 [place] % (Auto) 8.9 Eos % (Auto) 7.7 Baso % (Auto) 1.0 Absolute Neuts (auto) 3.2 Absolute Lymphs (auto) 0.7 L Absolute Monos (auto) 0.4 Absolute Eos (auto) 0.4 Absolute Basos (auto) 0.0 Absolute Nucleated RBC 0.0 Nucleated RBC % 0.1 Sodium 139 Potassium 4.0 Chloride 108 Carbon Dioxide 24 Anion Gap 7 BUN 5 L 6 Creatinine 0.68 0.62 Est GFR ( Amer) 109.9 122.3 Est GFR (Non-Af Amer) 90.9 101.1 BUN/Creatinine Ratio 9.7 Glucose 99 Calcium 8.9 Vancomycin Trough 12.7 Assessment: []S/P Debridement right first MTP joint with wound vac placement Plan: Continue with Wound Vac Continue with pain medication Continue with PT Cont vanco Wound vac change and measurements on 02/06/2019
[2019-02-05] MEDS: Enoxaparin(*) 40 MG/0.4 ML SYR SUBCUT SCH (11:18)
[2019-02-05] MEDS: oxyCODONE TAB* 5 MG TAB PO PRN ×3 (11:18→21:09)
[2019-02-05] MEDS: Acetaminophen TAB* 325 MG PO PRN (14:15)
[2019-02-05] MEDS ORDERED: Vancomycin Trough Check NOTE FOLLOW UP ONE (14:30)
[2019-02-05 15:09] LABS: EGFR African American 104.6 (>60); EGFR Non-African American 86.4 (>60)
[2019-02-05 15:31] LABS: Vancomycin Trough 16.8 mcg/mL
[2019-02-06] MEDS: oxyCODONE TAB* 5 MG TAB PO PRN ×3 (01:13→19:59)
[2019-02-06] MEDS: Morphine INJ* 4 MG/ML 1 ML SYRINGE (NEW SYRINGE VERSION) IV PRN ×4 (03:22→14:26)
[2019-02-06] MEDS: Lactobacillus Acidophilus* 1 TAB PO SCH ×2 (08:24→19:59)
[2019-02-06] MEDS: BuPROPion XL* 300 MG TAB.XL PO SCH (08:24)
[2019-02-06] MEDS: Pantoprazole TAB * 40 MG TAB PO SCH (08:25)
[2019-02-06] MEDS: Vancomycin(*) 1,000 MG in NS 0.9% 250 ML* 250 ML IVPB SCH ×2 (08:47→15:58)
[2019-02-06] MEDS: Enoxaparin(*) 40 MG/0.4 ML SYR SUBCUT SCH (11:20)
--- NOTE | 2019-02-06 11:46 | PN ---
Progress Note - Progress Note Date of Service: 02/06/19 SOAP: Subjective: Pt is doing well. Denies F/C, Cp/SOB or calf pain Objective: PE- 53 y/oWDWN F NAD, A&Ox3 RLE- dressing c/d/i, wound vac in place and functioning properly, calf soft NT, +DF/PF ankle, NVI Vital Signs Temp Pulse Resp BP Pulse Ox 98.3 F 76 18 138/75 98 02/06/19 08:16 02/06/19 08:16 02/06/19 11:12 02/06/19 08:16 02/06/19 08:16 Laboratory Results - last 24 hr 02/05/19 14:35 BUN 7 Creatinine 0.71 Est GFR ( Amer) 104.6 Est GFR (Non-Af Amer) 86.4 Vancomycin Trough 16.8 Assessment: []S/P Debridement right first MTP joint with wound vac placement Plan: Continue with Wound Vac Continue with pain medication Continue with PT Cont vanco TO OR on 02/06 for possible closure vs vac change with Dr. Faust NPO after midnight Hold lovenox
--- NOTE | 2019-02-06 11:52 | PN ---
Subjective Date of Service: 02/06/19 Interval History: Pain in RT foot continues. No other complaints. She is aware of plan to go to OR tomorrow, possible primary closure. Family History: Unchanged from Admission Social History: Unchanged from Admission Past Medical History: Unchanged from Admission Objective Active Medications: Acetaminophen (Tylenol Tab*) 650 mg PO Q4H PRN PRN Reason: PAIN-MILD/TEMP >/= 100.4 Last Admin: 02/05/19 14:15 Dose: 650 mg Al Hydrox/Mg Hydrox/Simethicone (Maalox Plus*) 30 ml PO Q6H PRN PRN Reason: INDIGESTION Bupropion HCl (Bupropion Xl*) 300 mg PO QAM [facility] Last Admin: 02/06/19 08:24 Dose: 300 mg Vancomycin HCl 1,000 mg/ (Sodium Chloride) 250 mls @ 166.667 mls/hr IVPB Q8H [facility] Last Admin: 02/06/19 08:47 Dose: 166.667 mls/hr Ibuprofen (Motrin Tab*) 600 mg PO Q6H PRN PRN Reason: PAIN - MILD Last Admin: 02/05/19 10:21 Dose: 600 mg Lactobacillus Rhamnosus (Lactobacillus Acidophilus*) 1 tab PO BID [facility] Last Admin: 02/06/19 08:24 Dose: 1 tab Morphine Sulfate (Morphine Inj (Syringe)*) 3 mg IV Q2H PRN PRN Reason: PAIN - SEVERE Last Admin: 02/06/19 11:12 Dose: 3 mg Ondansetron HCl (Zofran Inj*) 4 mg IV Q4H PRN PRN Reason: NAUSEA/VOMITING Last Admin: 02/01/19 20:28 Dose: 4 mg Oxycodone HCl (Roxycodone Tab*) 5 mg PO Q4H PRN PRN Reason: PAIN - SEVERE Last Admin: 02/06/19 01:13 Dose: 5 mg Pantoprazole Sodium (Protonix Tab*) 40 mg PO [facility] Last Admin: 02/06/19 08:25 Dose: 40 mg Vital Signs - 8 hr 02/06/19 02/06/19 02/06/19 04:30 05:20 08:00 Temperature Pulse Rate Respiratory 17 17 18 Rate Blood Pressure (mmHg) O2 Sat by Pulse Oximetry 02/06/19 02/06/19 02/06/19 08:16 08:27 11:10 Temperature 36.8 C Pulse Rate 76 Respiratory 18 18 18 Rate Blood Pressure 138/75 (mmHg) O2 Sat by Pulse 98 Oximetry 02/06/19 11:12 Temperature Pulse Rate Respiratory 18 Rate Blood Pressure (mmHg) O2 Sat by Pulse Oximetry Oxygen Devices in Use Now: None Appearance: alert Respiratory: Clear to Auscultation Cardiovascular: NL Sounds; No Murmurs; No JVD Abdominal: NL Sounds; No Tenderness; No Distention Extremities: - - RT foot in bandage/wound vac Lines/Tubes/Other Access: Clean, Dry and Intact Peripheral IV Nutrition: Taking PO's Result Diagrams: 02/05/19 05:40 02/05/19 14:35 Microbiology and Other Data: Microbiology 02/03/19 15:00 Anaerobic Culture - Preliminary Wound 02/03/19 15:00 Gram Stain - Final Toe Wound Culture - Preliminary Normal Kayleigh 02/01/19 12:50 Aerobic Blood Culture - Preliminary Blood Venous No Growth Day 4 Anaerobic Blood Culture - Preliminary No Growth Day 4 02/01/19 12:58 Blood Culture - Preliminary Blood Venous No Growth Day 4 02/02/19 10:12 Stool Culture - Final Stool YEAST Stool Gross Appearance - Final Shiga Toxin I & II - Final C. difficile DNA Amplification - Final Toxigenic C.diff NEGATIVE 027 Presumptive NEGATIVE Stool Occult Blood (SARA) - Final Cryptosporidium/Giardia - Final Neg Cryptosporidium/Giardia 02/02/19 10:12 Stool Occult Blood (SARA) - Final Stool 02/02/19 10:12 Stool Gross Appearance - Final Stool Stool Lactoferrin - Final 02/01/19 08:46 Urine Culture - Final Urine No Growth (<1,000 CFU/mL) Assess/Plan/Problems-Billing Assessment: 53 y/o F with history of depression, Migraine and recurrent nausea and vomiting( every couple of years) presented with gastroenteritis. Recently had right bunion surgery on 11/2018 with wound dehiscence and I and D with wound vac on ;Found to have osteomyelitis; s/p I&D(on 02/03). - Patient Problems (1) Right foot infection Current Visit: Yes Status: Acute Priority: High Code(s): L08.9 - LOCAL INFECTION OF THE SKIN AND SUBCUTANEOUS TISSUE, UNSP SNOMED Code(s): 979233223 Comment: - Has mild burning pain on her right foot. - Ortho following -I&D on 02/03, possible closure tomorrow -On vanco day 7 -pain controlled (2) Gastroenteritis Current Visit: Yes Status: Acute Priority: Low Code(s): K52.9 - NONINFECTIVE GASTROENTERITIS AND COLITIS, UNSPECIFIED SNOMED Code(s): 29629677 Comment: - Resolved -No nausea, vomiting, abdominal pain or diarrhea. -Tolerating PO well (3) Depression Current Visit: Yes Status: Acute Priority: Medium Code(s): F32.9 - MAJOR DEPRESSIVE DISORDER, SINGLE EPISODE, UNSPECIFIED SNOMED Code(s): 69016799 Comment: On bupropion (4) Migraine Current Visit: Yes Status: Acute Code(s): G43.909 - MIGRAINE, UNSP, NOT INTRACTABLE, WITHOUT STATUS MIGRAINOSUS SNOMED Code(s): 56506840 Comment: -Has history of migraine; no headadache at present -takes NSAIDs prn at home (5) DVT prophylaxis Current Visit: Yes Status: Acute Priority: Low Code(s): SXC2641 - SNOMED Code(s): 603459767 Comment: - lovenox held for surgery tomorrow (6) Full code status Current Visit: No Status: Acute Priority: Low Code(s): Z78.9 - OTHER SPECIFIED HEALTH STATUS SNOMED Code(s): 721449826 Status and Disposition: Inpatient; ortho following .
[2019-02-06] MEDS: Acetaminophen TAB* 325 MG PO PRN (13:05)
[2019-02-06] MEDS ORDERED: Ketorolac INJ* 30 MG/ML 1 ML VIAL IM PRN (18:36)
[2019-02-07] MEDS: Vancomycin(*) 1,000 MG in NS 0.9% 250 ML* 250 ML IVPB SCH ×4 (00:32→23:23)
[2019-02-07] MEDS: Morphine INJ* 4 MG/ML 1 ML SYRINGE (NEW SYRINGE VERSION) IV PRN ×5 (06:02→23:23)
[2019-02-07] MEDS: Pantoprazole TAB * 40 MG TAB PO SCH (08:30)
[2019-02-07] MEDS: Lactobacillus Acidophilus* 1 TAB PO SCH ×2 (08:30→21:10)
[2019-02-07] MEDS: BuPROPion XL* 300 MG TAB.XL PO SCH (08:31)
[2019-02-07] MEDS: Acetaminophen TAB* 325 MG PO PRN (08:31)
[2019-02-07] MEDS ORDERED: Bupivacaine 0.25% SDV PF* 10 ML VIAL INJ ONE (13:15)
[2019-02-07] MEDS ORDERED: Propofol* 10 MG/ML 20 ML BTL ONE ×2 (13:28→14:09)
[2019-02-07] MEDS ORDERED: Midazolam* 1 MG/ML 2 ML VIAL (2 MG) ONE (13:29)
[2019-02-07] MEDS ORDERED: fentaNYL* 50 MCG/ML 2 ML VIAL (100 MCG VIAL) ONE (13:42)
[2019-02-07] MEDS ORDERED: Ondansetron INJ* 2 MG/ML VIAL IV PRN (14:07)
[2019-02-07] MEDS ORDERED: diPHENhydraMINE IV* 50 MG/ML 1 ml VIAL (BENADRYL) IV PRN (14:07)
[2019-02-07] MEDS ORDERED: fentaNYL* 50 MCG/ML 2 ML VIAL (100 MCG VIAL) IV PRN (14:07)
[2019-02-07] MEDS ORDERED: Naloxone* 0.4 MG/ML 1 ML VIAL IV PRN (14:07)
[2019-02-07] MEDS ORDERED: Acetaminophen TAB* 325 MG PO PRN (14:07)
--- NOTE | 2019-02-07 14:43 | PN ---
Subjective Date of Service: 02/07/19 Interval History: Patient has no complains, pain well controlled. She is going for surgical closure today. She is agreeable and happy with the plan of PICC insertion. Objective Active Medications: Acetaminophen (Tylenol Tab*) 650 mg PO Q4H PRN PRN Reason: PAIN-MILD/TEMP >/= 100.4 Last Admin: 02/07/19 08:31 Dose: 650 mg Acetaminophen (Tylenol Tab*) 650 mg PO ONCE PRN PRN Reason: PAIN - MILD Al Hydrox/Mg Hydrox/Simethicone (Maalox Plus*) 30 ml PO Q6H PRN PRN Reason: INDIGESTION Bupropion HCl (Bupropion Xl*) 300 mg PO QAM [facility] Last Admin: 02/07/19 08:31 Dose: 300 mg Diphenhydramine HCl (Benadryl Iv*) 25 mg IV ONCE PRN PRN Reason: ITCHING Fentanyl Citrate (Fentanyl*) 25 mcg IV Q5M PRN PRN Reason: PAIN - MODERATE Vancomycin HCl 1,000 mg/ (Sodium Chloride) 250 mls @ 166.667 mls/hr IVPB Q8H [facility] Last Admin: 02/07/19 08:33 Dose: 166.667 mls/hr Ibuprofen (Motrin Tab*) 600 mg PO Q6H PRN PRN Reason: PAIN - MILD Last Admin: 02/05/19 10:21 Dose: 600 mg Ketorolac Tromethamine (Toradol Inj*) 30 mg IM Q6H PRN PRN Reason: PAIN - SEVERE Last Admin: 02/06/19 23:54 Dose: 30 mg Lactobacillus Rhamnosus (Lactobacillus Acidophilus*) 1 tab PO BID [facility] Last Admin: 02/07/19 08:30 Dose: 1 tab Morphine Sulfate (Morphine Inj (Syringe)*) 3 mg IV Q2H PRN PRN Reason: PAIN - SEVERE Last Admin: 02/07/19 06:02 Dose: 3 mg Naloxone HCl (Narcan*) 0.08 mg IV Q2M PRN PRN Reason: severe induced resp depression Ondansetron HCl (Zofran Inj*) 4 mg IV Q4H PRN PRN Reason: NAUSEA/VOMITING Last Admin: 02/01/19 20:28 Dose: 4 mg Ondansetron HCl (Zofran Inj*) 4 mg IV ONCE PRN PRN Reason: NAUSEA/VOMITING Oxycodone HCl (Roxycodone Tab*) 10 mg PO Q4H PRN PRN Reason: PAIN - MODERATE Last Admin: 02/06/19 19:59 Dose: 10 mg Oxycodone HCl (Roxycodone Tab*) 5 mg PO ONCE PRN PRN Reason: PAIN - MODERATE Pantoprazole Sodium (Protonix [facility]*) [facility] [place] Admin: 02/07/19 08:30 Dose: 40 mg Pharmacy Consult (Vancomycin Per Pharmacy*) 1 note FOLLOW UP .VANC PER PHARMACY M[facility]; Protocol Vital Signs - 8 hr 02/07/19 02/07/19 07:48 08:34 Temperature 98.0 F Pulse Rate 68 Respiratory 14 20 Rate Blood Pressure 146/80 (mmHg) O2 Sat by Pulse 98 Oximetry Oxygen Devices in Use Now: Nasal Cannula Exam: Appearance: alert Respiratory: Clear to Auscultation Cardiovascular: NL Sounds; No Murmurs; No JVD Abdominal: NL Sounds; No Tenderness; No Distention Extremities: RT foot in bandage/wound vac Lines/Tubes/Other Access: Clean, Dry and Intact Peripheral IV Result Diagrams: 02/05/19 05:40 02/05/19 14:35 Microbiology and Other Data: Microbiology 02/03/19 15:00 Anaerobic Culture - Preliminary Wound 02/03/19 15:00 Gram Stain - Final Toe Wound Culture - Preliminary Normal Kayleigh 02/01/19 12:50 Aerobic Blood Culture - Preliminary Blood Venous No Growth Day 4 Anaerobic Blood Culture - Preliminary No Growth Day 4 02/01/19 12:58 Blood Culture - Preliminary Blood Venous No Growth Day 4 02/02/19 10:12 Stool Culture - Final Stool YEAST Stool Gross Appearance - Final Shiga Toxin I & II - Final C. difficile DNA Amplification - Final Toxigenic C.diff NEGATIVE 027 Presumptive NEGATIVE Stool Occult Blood (SARA) - Final Cryptosporidium/Giardia - Final Neg Cryptosporidium/Giardia 02/02/19 10:12 Stool Occult Blood (SARA) - Final Stool 02/02/19 10:12 Stool Gross Appearance - Final Stool Stool Lactoferrin - Final 02/01/19 08:46 Urine Culture - Final Urine No Growth (<1,000 CFU/mL) Assess/Plan/Problems-Billing Assessment: 53 y/o F with history of depression, Migraine and recurrent nausea and vomiting( every couple of years) presented with gastroenteritis. Recently had right bunion surgery on 11/2018 with wound dehiscence and I and D with wound vac on ;Found to have osteomyelitis; s/p I&D(on 02/03). - Patient Problems (1) Right foot infection Current Visit: Yes Status: Acute Priority: High Code(s): L08.9 - LOCAL INFECTION OF THE SKIN AND SUBCUTANEOUS TISSUE, UNSP SNOMED Code(s): 388912071 Comment: - Ortho following - I&D on 02/03, planned for closure today - anerobe c/s neg, surgical path pending - On vanco day 8-> ID planed for abx 4-6 weeks with vancomycin and levoquin - pain controlled (2) Gastroenteritis Current Visit: Yes Status: Acute Priority: Low Code(s): K52.9 - NONINFECTIVE GASTROENTERITIS AND COLITIS, UNSPECIFIED SNOMED Code(s): 43894861 Comment: -Resolved -workup including C.diff, bacteria causes neg (3) Depression Current Visit: Yes Status: Acute Priority: Medium Code(s): F32.9 - MAJOR DEPRESSIVE DISORDER, SINGLE EPISODE, UNSPECIFIED SNOMED Code(s): 28234743 Comment: On bupropion (4) Migraine Current Visit: Yes Status: Acute Code(s): G43.909 - MIGRAINE, UNSP, NOT INTRACTABLE, WITHOUT STATUS MIGRAINOSUS SNOMED Code(s): 44702333 Comment: -Has history of migraine; no headadache at present -takes NSAIDs prn at home (5) Full code status Current Visit: No Status: Acute Priority: Low Code(s): Z78.9 - OTHER SPECIFIED HEALTH STATUS SNOMED Code(s): 641682633 (6) DVT prophylaxis Current Visit: Yes Status: Acute Priority: Low Code(s): XSW1957 - SNOMED Code(s): 731350343 Comment: - lovenox held for surgery tomorrow Status and Disposition: Inpatient; ortho following; need arrangement for outpatient iv therapy . Attestation Documenting Resident: Gloria Rodney Supervising Physician: Virginia Campbell Attestation: This service has been performed in part by a resident under the direction of a teaching physician.I, Virginia Campbell, performed the service, or was physically present during the critical, or esposito portions of the service, furnished by the resident. I participated in the management of the patient.
[2019-02-07] MEDS ORDERED: oxyCODONE TAB* 5 MG TAB ONE (14:45)
[2019-02-07] MEDS: oxyCODONE TAB* 5 MG TAB PO PRN ×4 (14:51→22:17)
--- NOTE | 2019-02-07 21:59 | OP ---
DATE OF OPERATION: 02/07/19 - ROOM #[id number] DATE OF : 67 SURGEON: Aubrey Faust MD UTILITY WORKER DRIVER: Kyler Meeks PA-C PRE-OP DIAGNOSIS: Osteomyelitis, right great toe metatarsophalangeal joint. POST-OP DIAGNOSIS: Osteomyelitis, right great toe metatarsophalangeal joint. OPERATIVE PROCEDURE: Cement spacer, irrigation and debridement, right first MTP joint and closure. DESCRIPTION OF PROCEDURE: The patient was taken to the operating room where ankle Esmarch was inflated. We washed out her wound; it had a VAC dressing previously. There was early granulation tissue noted. Things looked clean. We fashioned a small cement spacer of Simplex with some tobramycin, and then we were able to close the skin over the cement spacer using some retention sutures of 2-0 Prolene with a compression dressing applied. Cultures were sent intraoperatively. [id number]/[facility] #: [id number] MOSHE
[2019-02-08] MEDS: Morphine INJ* 4 MG/ML 1 ML SYRINGE (NEW SYRINGE VERSION) IV PRN ×5 (01:55→12:48)
[2019-02-08] MEDS: oxyCODONE TAB* 5 MG TAB PO PRN ×4 (05:55→20:08)
[2019-02-08] MEDS: Vancomycin(*) 1,000 MG in NS 0.9% 250 ML* 250 ML IVPB SCH ×3 (08:05→23:29)
[2019-02-08] MEDS: BuPROPion XL* 300 MG TAB.XL PO SCH (08:35)
[2019-02-08] MEDS: Lactobacillus Acidophilus* 1 TAB PO SCH ×2 (08:35→20:03)
[2019-02-08] MEDS: Pantoprazole TAB * 40 MG TAB PO SCH (08:35)
--- NOTE | 2019-02-08 10:46 | PN ---
Progress Note - Progress Note Date of Service: 02/08/19 SOAP: Subjective: CC: Right 1st toe osteomyelitis HPI: Ms Gu is a 53 yo female with PMH significant for depression, recurrent N /V, pancreatitis, and migraines; who presented to the hospital with a right foot infection. Denies fever, chills, nausea, vomiting, or diarrhea. Pain is controlled in the right foot. Objective: Vital Signs - 8 hr 02/08/19 02/08/19 02/08/19 05:12 05:55 07:15 Temperature 98.7 F Pulse Rate 85 Respiratory 16 17 16 Rate Blood Pressure 139/88 (mmHg) O2 Sat by Pulse 99 Oximetry Physical Exam: General: NAD, sitting up in bed Neurological: Alert and Oriented x4 HEENT: Moist MM, no thrush Cardiovascular: Heart rate regular Respiratory: Lung sounds clear Abdominal: Bowel sounds present, ABD soft, non tender and non distended MSK: Able to wiggle right toes Skin: ZOE wrap dressing to the right foot clean, dry and intact Laboratory Last Values WBC 4.7 10^3/uL (3.5-10.8) 02/05/19 05:40 RBC 3.93 10^6 /uL (3.70-4.87) 02/05/19 05:40 Hgb 12.2 g/dL (12.0-16.0) 02/05/19 05:40 Hct 37 % (35-47) 02/05/19 05:40 MCV 95 fL (80-97) 02/05/19 05:40 MCH 31 pg (27-31) 02/05/19 05:40 MCHC 33 g/dL (31-36) 02/05/19 05:40 RDW 14 % (10-15) 02/05/19 05:40 Plt Count 209 10^3/uL (150-450) 02/05/19 05:40 MPV 8.0 fL (7.4-10.4) 02/05/19 05:40 Neut % (Auto) 68.1 % 02/05/19 05:40 Lymph % (Auto) 14.3 % 02/05/19 05:40 [place] % (Auto) 8.9 % 02/05/19 05:40 Eos % (Auto) 7.7 % 02/05/19 05:40 Baso % (Auto) 1.0 % 02/05/19 05:40 Absolute Neuts (auto) 3.2 10^3/ul (1.5-7.7) 02/05/19 05:40 Absolute Lymphs (auto) 0.7 10^3/ul (1.0-4.8) L 02/05/19 05:40 Absolute Monos (auto) 0.4 10^3/ul (0-0.8) 02/05/19 05:40 Absolute Eos (auto) 0.4 10^3/ul (0-0.6) 02/05/19 05:40 Absolute Basos (auto) 0.0 10^3/ul (0-0.2) 02/05/19 05:40 Absolute Nucleated RBC 0.0 10^3/ul 02/05/19 05:40 Nucleated RBC % 0.1 02/05/19 05:40 Sodium 139 mmol/L (135-145) 02/05/19 05:40 Potassium 4.0 mmol/L (3.5-5.0) 02/05/19 05:40 Chloride 108 mmol/L (101-111) 02/05/19 05:40 Carbon Dioxide 24 mmol/L (22-32) 02/05/19 05:40 Anion Gap 7 mmol/L (2-11) 02/05/19 05:40 BUN 7 mg/dL (6-24) 02/05/19 14:35 Creatinine 0.71 mg/dL (0.51-0.95) 02/05/19 14:35 Est GFR ( Amer) 104.6 (>60) 02/05/19 14:35 Est GFR (Non-Af Amer) 86.4 (>60) 02/05/19 14:35 BUN/Creatinine Ratio 9.7 (8-20) 02/05/19 05:40 Glucose 99 mg/dL (70-100) 02/05/19 05:40 Lactic Acid 0.5 mmol/L (0.5-2.0) 02/01/19 12:49 Calcium 8.9 mg/dL (8.6-10.3) 02/05/19 05:40 Magnesium 2.0 mg/dL (1.9-2.7) 02/04/19 05:49 Total Bilirubin 0.40 mg/dL (0.2-1.0) 01/31/19 15:05 AST 19 U/L (13-39) 02/01/19 12:49 ALT 52 U/L (7-52) 01/31/19 15:05 Alkaline Phosphatase 89 U/L (34-104) 01/31/19 15:05 C-Reactive Protein 5.63 mg/L (<8.01) 01/31/19 15:05 Total Protein 7.0 g/dL (6.4-8.9) 01/31/19 15:05 Albumin 4.2 g/dL (3.2-5.2) 01/31/19 15:05 Globulin 2.8 g/dL (2-4) 01/31/19 15:05 Albumin/Globulin Ratio 1.5 (1-3) 01/31/19 15:05 Lipase 13 U/L (11.0-82.0) 01/31/19 15:05 Urine Color Yellow 02/01/19 08:46 Urine Appearance Cloudy 02/01/19 08:46 Urine pH 5.0 (5-9) 02/01/19 08:46 Ur Specific [place] 1.021 (1.010-1.030) 02/01/19 08:46 Urine Protein Negative (Negative) 02/01/19 08:46 Urine Ketones 1+ (Negative) A 02/01/19 08:46 Urine Blood Negative (Negative) 02/01/19 08:46 Urine Nitrate Negative (Negative) 02/01/19 08:46 Urine Bilirubin Negative (Negative) 02/01/19 08:46 Urine Urobilinogen Negative (Negative) 02/01/19 08:46 Ur Leukocyte Esterase Trace (Negative) A 02/01/19 08:46 Urine WBC (Auto) 1+(6-10/hpf) (Absent) A 02/01/19 08:46 Urine RBC (Auto) Trace(0-2/hpf) (Absent) 02/01/19 08:46 Ur Squamous Epith Cells Present (Absent) A 02/01/19 08:46 Urine Bacteria Absent (Absent) 02/01/19 08:46 Urine Glucose Negative (Negative) 02/01/19 08:46 Vancomycin Trough 16.8 mcg/mL 02/05/19 14:35 Microbiology 02/03/19 15:00 Anaerobic Culture - Final Wound 02/03/19 15:00 Gram Stain - Final Toe Wound Culture - Final Normal Jenny 02/01/19 12:58 Blood Culture - Final Blood Venous No Growth Day 5 02/01/19 12:50 Aerobic Blood Culture - Final Blood Venous No Growth Day 5 Anaerobic Blood Culture - Final No Growth Day 5 02/02/19 10:12 Stool Culture - Final Stool YEAST Stool Gross Appearance - Final Shiga Toxin I & II - Final C. difficile DNA Amplification - Final Toxigenic C.diff NEGATIVE 027 Presumptive NEGATIVE Stool Occult Blood (SARA) - Final Cryptosporidium/Giardia - Final Neg Cryptosporidium/Giardia 02/02/19 10:12 Stool Occult Blood (SARA) - Final Stool 02/02/19 10:12 Stool Gross Appearance - Final Stool Stool Lactoferrin - Final 02/01/19 08:46 Urine Culture - Final Urine No Growth (<1,000 CFU/mL) Assessment: 1. Right 1st toe osteomyelitis. MRI with osteomyelitis. S/P debridement with Dr. Faust, POD # 5. Wound cultures with normal jenny. S/P placement of cement spacer, I+D of the right 1st MTP and closure, POD #1. Previously this foot has grown enterococcus faecalis, stenotrophomonas maltophilia, MRSA, and staph aureus. 2. Diarrhea. Resolved Plan: Continue Vancomycin, trough goal 15 to 20. Day . Will plan to start Levaquin 500 mg PO daily at discharge in addition to Vancomycin. She will need to have weekly labs while on IV ABX: CBC, CMP, CRP, and vanco trough. Follow up with ID outpatient in 1-2 weeks. 25 minutes floor time > 50 % was spent with the Pt and daughter discussing IV ABX, weekly labs, and when to call the office. She will call the office for fever, rash, diarrhea, questions or concerns.
--- NOTE | 2019-02-08 13:43 | PN ---
Subjective Date of Service: 02/08/19 Interval History: Patient had wound closure yesterday, as well PICC line insertion. No complains. pain well controlled. Objective Active Medications: Acetaminophen (Tylenol Tab*) 650 mg PO Q4H PRN PRN Reason: PAIN-MILD/TEMP >/= 100.4 Last Admin: 02/07/19 08:31 Dose: 650 mg Al Hydrox/Mg Hydrox/Simethicone (Maalox Plus*) 30 ml PO Q6H PRN PRN Reason: INDIGESTION Bupropion HCl (Bupropion Xl*) 300 mg PO QAM [facility] Last Admin: 02/08/19 08:35 Dose: 300 mg Heparin Sodium (Porcine) (Heparin Flush Picc/Ml/Cvc(*)) 1 - 3 ml FLUSH 0600, 1800 [facility]; Protocol Last Admin: 02/08/19 05:50 Dose: 1 ml Vancomycin HCl 1,000 mg/ (Sodium Chloride) 250 mls @ 166.667 mls/hr IVPB Q8H [facility] Last Admin: 02/08/19 08:05 Dose: 166.667 mls/hr Ibuprofen (Motrin Tab*) 600 mg PO Q6H PRN PRN Reason: PAIN - MILD Last Admin: 02/05/19 10:21 Dose: 600 mg Ketorolac Tromethamine (Toradol Inj*) 30 mg IM Q6H PRN PRN Reason: PAIN - SEVERE Last Admin: 02/06/19 23:54 Dose: 30 mg Lactobacillus Rhamnosus (Lactobacillus Acidophilus*) 1 tab PO BID [facility] Last Admin: 02/08/19 08:35 Dose: 1 tab Morphine Sulfate (Morphine Inj (Syringe)*) 3 mg IV Q2H PRN PRN Reason: PAIN - SEVERE Last Admin: 02/08/19 12:48 Dose: 3 mg Ondansetron HCl (Zofran Inj*) 4 mg IV Q4H PRN PRN Reason: NAUSEA/VOMITING Last Admin: 02/01/19 20:28 Dose: 4 mg Oxycodone HCl (Roxycodone Tab*) 10 mg PO Q4H PRN PRN Reason: PAIN - MODERATE Last Admin: 02/08/19 10:30 Dose: 10 mg Pantoprazole Sodium (Protonix Tab*) [facility] [place] Last Admin: 02/08/19 08:35 Dose: 40 mg Pharmacy Consult (Vancomycin Per Pharmacy*) 1 note FOLLOW UP .VANC PER PHARMACY M[facility]; Protocol Pharmacy Profile Note (Vancomycin Trough Check) 1 note FOLLOW UP 1530 ONE Stop: 02/08/19 15:31 Vital Signs - 8 hr 02/08/19 02/08/19 02/08/19 05:55 07:15 07:55 Temperature 98.7 F Pulse Rate 85 Respiratory 17 16 16 Rate Blood Pressure 139/88 (mmHg) O2 Sat by Pulse 99 Oximetry 02/08/19 02/08/19 02/08/19 08:22 09:20 10:23 Temperature Pulse Rate Respiratory 16 16 18 Rate Blood Pressure (mmHg) O2 Sat by Pulse Oximetry 02/08/19 02/08/19 02/08/19 10:30 12:00 12:48 Temperature Pulse Rate Respiratory 18 16 18 Rate Blood Pressure (mmHg) O2 Sat by Pulse Oximetry Oxygen Devices in Use Now: None Exam: Appearance: alert Respiratory: Clear to Auscultation Cardiovascular: NL Sounds; No Murmurs; No JVD Abdominal: NL Sounds; No Tenderness; No Distention Extremities: RT foot in bandage/wound vac Lines/Tubes/Other Access: Clean, Dry and Intact Peripheral IV Result Diagrams: 02/05/19 05:40 02/05/19 14:35 Microbiology and Other Data: Microbiology 02/03/19 15:00 Anaerobic Culture - Preliminary Wound 02/03/19 15:00 Gram Stain - Final Toe Wound Culture - Preliminary Normal Kayleigh 02/01/19 12:50 Aerobic Blood Culture - Preliminary Blood Venous No Growth Day 4 Anaerobic Blood Culture - Preliminary No Growth Day 4 02/01/19 12:58 Blood Culture - Preliminary Blood Venous No Growth Day 4 02/02/19 10:12 Stool Culture - Final Stool YEAST Stool Gross Appearance - Final Shiga Toxin I & II - Final C. difficile DNA Amplification - Final Toxigenic C.diff NEGATIVE 027 Presumptive NEGATIVE Stool Occult Blood (SARA) - Final Cryptosporidium/Giardia - Final Neg Cryptosporidium/Giardia 02/02/19 10:12 Stool Occult Blood (SARA) - Final Stool 02/02/19 10:12 Stool Gross Appearance - Final Stool Stool Lactoferrin - Final 02/01/19 08:46 Urine Culture - Final Urine No Growth (<1,000 CFU/mL) Assess/Plan/Problems-Billing Assessment: 53 y/o F with history of depression, Migraine and recurrent nausea and vomiting( every couple of years) presented with gastroenteritis. Recently had right bunion surgery on 11/2018 with wound dehiscence and I and D with wound vac on ;Found to have osteomyelitis; s/p I&D(on 02/03), wound closure (02/07/2019) . - Patient Problems (1) Right foot infection Current Visit: Yes Status: Acute Priority: High Code(s): L08.9 - LOCAL INFECTION OF THE SKIN AND SUBCUTANEOUS TISSUE, UNSP SNOMED Code(s): 738494399 Comment: - possible right 1st toe metatarsal OM after wound dehiscense with recent bunion surgery. - anerobe c/s neg, surgical path pending - On vanco day 6-> ID planed for abx 4-6 weeks with vancomycin and levoquin - will do outpatient antibiotic treatment - pain controlled (2) Gastroenteritis Current Visit: Yes Status: Acute Priority: Low Code(s): K52.9 - NONINFECTIVE GASTROENTERITIS AND COLITIS, UNSPECIFIED SNOMED Code(s): 14018267 Comment: -Resolved -workup including C.diff, bacteria causes neg (3) Depression Current Visit: Yes Status: Acute Priority: Medium Code(s): F32.9 - MAJOR DEPRESSIVE DISORDER, SINGLE EPISODE, UNSPECIFIED SNOMED Code(s): 57188095 Comment: On bupropion (4) Migraine Current Visit: Yes Status: Acute Code(s): G43.909 - MIGRAINE, UNSP, NOT INTRACTABLE, WITHOUT STATUS MIGRAINOSUS SNOMED Code(s): 52959612 Comment: -Has history of migraine; no headadache at present -takes NSAIDs prn at home (5) Full code status Current Visit: No Status: Acute Priority: Low Code(s): Z78.9 - OTHER SPECIFIED HEALTH STATUS SNOMED Code(s): 434723373 (6) DVT prophylaxis Current Visit: Yes Status: Acute Priority: Low Code(s): HDG3366 - SNOMED Code(s): 169806966 Comment: - Lovenox Status and Disposition: Inpatient; ortho following; discharge tomorrow after getting insurance authorization for outpt iv abx. . Attestation Documenting Resident: Gloria Rodney Supervising Physician: Virginia Campbell Attestation: This service has been performed in part by a resident under the direction of a teaching physician.I, Virginia Campbell, performed the service, or was physically present during the critical, or esposito portions of the service, furnished by the resident. I participated in the management of the patient.
--- NOTE | 2019-02-08 13:50 | PN ---
Progress Note - Progress Note Date of Service: 02/08/19 SOAP: Subjective: []Pt seen and examined at bedside. She feels well, her right foot pain is well controlled. Denies fever or chills. Objective: []Gen: Appears well, NAD RLE: Dressing CDI. Able to f/e MTPs 2-5, unable to move 1st toe. Sensation intact to light touch distally, capillary refill less than two seconds distally Calves supple and nontender Assessment: []Osteomyelitis, right great toe metatarsophalangeal joint. SP Cement spacer, irrigation and debridement, right first MTP joint and closure. Plan: []Heel WB lovenox 40 mg sq qd okay to restart today No further operations planned during this stay, will return to OR in 4-6 weeks Vital Signs Temp 98.7 F 02/08/19 07:15 Pulse 85 02/08/19 07:15 Resp 18 02/08/19 12:48 BP 139/88 02/08/19 07:15 Pulse Ox 99 02/08/19 07:15 Intake & Output 02/07/19 02/08/19 02/08/19 18:59 06:59 18:59 Intake Total 1390 480 Balance 1390 480 Intake: IV Fluids 815 LR 815 IVPB 500 ABX - VANCOMYCIN 500 Oral 75 480 Other: Estimated Void Medium Large # Bowel Movements 1 1 Estimated Stool Amount Medium # Voids 2 1 Laboratory Last Values WBC 4.7 10^3/uL (3.5-10.8) 02/05/19 05:40 RBC 3.93 10^6 /uL (3.70-4.87) 02/05/19 05:40 Hgb 12.2 g/dL (12.0-16.0) 02/05/19 05:40 Hct 37 % (35-47) 02/05/19 05:40 MCV 95 fL (80-97) 02/05/19 05:40 MCH 31 pg (27-31) 02/05/19 05:40 MCHC 33 g/dL (31-36) 02/05/19 05:40 RDW 14 % (10-15) 02/05/19 05:40 Plt Count 209 10^3/uL (150-450) 02/05/19 05:40 MPV 8.0 fL (7.4-10.4) 02/05/19 05:40 Neut % (Auto) 68.1 % 02/05/19 05:40 Lymph % (Auto) 14.3 % 02/05/19 05:40 [place] % (Auto) 8.9 % 02/05/19 05:40 Eos % (Auto) 7.7 % 02/05/19 05:40 Baso % (Auto) 1.0 % 02/05/19 05:40 Absolute Neuts (auto) 3.2 10^3/ul (1.5-7.7) 02/05/19 05:40 Absolute Lymphs (auto) 0.7 10^3/ul (1.0-4.8) L 02/05/19 05:40 Absolute Monos (auto) 0.4 10^3/ul (0-0.8) 02/05/19 05:40 Absolute Eos (auto) 0.4 10^3/ul (0-0.6) 02/05/19 05:40 Absolute Basos (auto) 0.0 10^3/ul (0-0.2) 02/05/19 05:40 Absolute Nucleated RBC 0.0 10^3/ul 02/05/19 05:40 Nucleated RBC % 0.1 02/05/19 05:40 Sodium 139 mmol/L (135-145) 02/05/19 05:40 Potassium 4.0 mmol/L (3.5-5.0) 02/05/19 05:40 Chloride 108 mmol/L (101-111) 02/05/19 05:40 Carbon Dioxide 24 mmol/L (22-32) 02/05/19 05:40 Anion Gap 7 mmol/L (2-11) 02/05/19 05:40 BUN 7 mg/dL (6-24) 02/05/19 14:35 Creatinine 0.71 mg/dL (0.51-0.95) 02/05/19 14:35 Est GFR ( Amer) 104.6 (>60) 02/05/19 14:35 Est GFR (Non-Af Amer) 86.4 (>60) 02/05/19 14:35 BUN/Creatinine Ratio 9.7 (8-20) 02/05/19 05:40 Glucose 99 mg/dL (70-100) 02/05/19 05:40 Lactic Acid 0.5 mmol/L (0.5-2.0) 02/01/19 12:49 Calcium 8.9 mg/dL (8.6-10.3) 02/05/19 05:40 Magnesium 2.0 mg/dL (1.9-2.7) 02/04/19 05:49 Total Bilirubin 0.40 mg/dL (0.2-1.0) 01/31/19 15:05 AST 19 U/L (13-39) 02/01/19 12:49 ALT 52 U/L (7-52) 01/31/19 15:05 Alkaline Phosphatase 89 U/L (34-104) 01/31/19 15:05 C-Reactive Protein 5.63 mg/L (<8.01) 01/31/19 15:05 Total Protein 7.0 g/dL (6.4-8.9) 01/31/19 15:05 Albumin 4.2 g/dL (3.2-5.2) 01/31/19 15:05 Globulin 2.8 g/dL (2-4) 01/31/19 15:05 Albumin/Globulin Ratio 1.5 (1-3) 01/31/19 15:05 Lipase 13 U/L (11.0-82.0) 01/31/19 15:05 Urine Color Yellow 02/01/19 08:46 Urine Appearance Cloudy 02/01/19 08:46 Urine pH 5.0 (5-9) 02/01/19 08:46 Ur Specific [place] 1.021 (1.010-1.030) 02/01/19 08:46 Urine Protein Negative (Negative) 02/01/19 08:46 Urine Ketones 1+ (Negative) A 02/01/19 08:46 Urine Blood Negative (Negative) 02/01/19 08:46 Urine Nitrate Negative (Negative) 02/01/19 08:46 Urine Bilirubin Negative (Negative) 02/01/19 08:46 Urine Urobilinogen Negative (Negative) 02/01/19 08:46 Ur Leukocyte Esterase Trace (Negative) A 02/01/19 08:46 Urine WBC (Auto) 1+(6-10/hpf) (Absent) A 02/01/19 08:46 Urine RBC (Auto) Trace(0-2/hpf) (Absent) 02/01/19 08:46 Ur Squamous Epith Cells Present (Absent) A 02/01/19 08:46 Urine Bacteria Absent (Absent) 02/01/19 08:46 Urine Glucose Negative (Negative) 02/01/19 08:46 Vancomycin Trough 16.8 mcg/mL 02/05/19 14:35
[2019-02-08] MEDS ORDERED: Enoxaparin(*) 40 MG/0.4 ML SYR SUBCUT SCH (15:00)
[2019-02-08] MEDS ORDERED: Vancomycin Trough Check NOTE FOLLOW UP ONE (15:30)
[2019-02-09] MEDS: oxyCODONE TAB* 5 MG TAB PO PRN ×2 (01:34→05:47)
[2019-02-09] MEDS: Vancomycin(*) 1,000 MG in NS 0.9% 250 ML* 250 ML IVPB SCH (07:58)
[2019-02-09] MEDS: Lactobacillus Acidophilus* 1 TAB PO SCH (07:58)
[2019-02-09] MEDS: Pantoprazole TAB * 40 MG TAB PO SCH (07:58)
[2019-02-09] MEDS: BuPROPion XL* 300 MG TAB.XL PO SCH (07:58)
[2019-02-09 11:32] VITALS: BP 142/80
[2019-02-09] MEDS ORDERED: Vancomycin(*) 1,000 MG in NS 0.9% 250 ML* 250 ML IVPB SCH (18:00)
--- NOTE | 2019-02-09 21:28 | DS ---
CC: Dr. Aubrey Calderon * DISCHARGE SUMMARY: DATE OF ADMISSION: 01/31/19 DATE OF DISCHARGE: 02/09/19 PRIMARY CARE PROVIDER: Dr. Aubrey Calderon PRIMARY DIAGNOSES: 1. Right first toe osteomyelitis. 2. Acute diarrhea, resolved. SECONDARY DIAGNOSES: 1. Depression. 2. Migraine. 3. Recurrent nausea and vomiting. CONSULTS: 1. Dr. Dallas and Dr. Faust from Orthopedic Surgery. 2. Dr. Baron Galan from Infectious Disease. 3. Dr. Ruelas from GI. PROCEDURES: Cement spacer with irrigation and debridement of right first MTP joint and closure on 02/07/19 and debridement of right first MTP joint on . DISCHARGE MEDICATIONS: 1. Vancomycin IV for approximately 5 more weeks has to be determined by outpatient Infectious Disease. 2. Levaquin 500 mg p.o. daily. 3. Oxycodone 5 mg every 6 hours as needed for pain, given 20 tablets. 4. Naproxen 500 mg twice a day as needed for mild pain. 5. Lactobacillus 1 tablet daily. 6. Omeprazole 20 mg daily. 7. Bupropion 300 mg daily. HISTORY OF PRESENT ILLNESS: Ms. Gu is a 53-year-old woman with depression, occasional nausea and vomiting, who was placed on ciprofloxacin after infected right bunion surgery that was done by Dr. Stein on 12/10/18. Since that time, she has had persistent issues, the wound did not heal well and eventually dehisced. She went to the OR again on 01/14/19 for an I and D with an apex graft placement and wound VAC with removal of hardware. She continued to have pain. Microbiology showed MRSA and enterococcus. She was on various types of antibiotics, most recently ciprofloxacin and she is presenting now with worsening foot pain, loose bowels, abdominal pain, nausea, vomiting. HOSPITAL COURSE: In the emergency room, a CT scan was done, which was concerning for colitis. She is placed on a clear liquid diet and GI was consulted and they do not think the patient had infection nor ischemic colitis. The patient appeared to have improved without significant intervention. She was also seen by orthopedic surgery team who recommended debridement of her wound, which she underwent on 02/03/19 and subsequently had wound VAC placed. After several days with wound VAC, the patient was deemed ready to return to OR , which occurred on 02/07/19 for possible wound closure with wound VAC discontinued. She tolerated the procedure well. She was continued on vancomycin throughout her hospitalization. ID recommended to continue vancomycin on discharge and also on discharge to start Levaquin 500 mg daily. The patient was able to weight bear on her right heel and she reports that she has significant assistive equipment at home as she has needed to be heel weightbearing only on right foot for some time. She also reports having extensive support system at home who can help her with her ADLs and also getting to appointments. REVIEW OF SYSTEMS: On day of discharge, a 10-point review of systems was performed and significant only for mild pain in her foot. She denied nausea, vomiting or recent diarrhea. PHYSICAL EXAMINATION: Vitals: Afebrile. Heart rate 80, blood pressure 142/80, respiratory rate 17, oxygen saturation 97% on room air. In general, she is a well- appearing woman, in no acute distress, who is alert and interactive. HEENT: Moist mucous membranes. Heart: Regular rate and rhythm. Lungs: Clear to auscultation bilaterally. Abdomen: Soft, nontender, nondistended. Lower Extremities: Without edema. ZEO wrap dressing to right foot is clean, dry, intact. DIAGNOSTIC STUDIES/LAB DATA: CBC and BMP unremarkable. CRP on admission 5.63. Lower extremity MRI on 02/01 with previous bunionectomy and first metatarsal osteotomy, there is a residual nonunited appearing oblique osteoectomy line previously bridged by screw with resorption along the margins. There is corresponding abnormal marrow signal here extending into the distal third of the shaft of the metatarsal, increased on STIR and decreased on T1 weighted imaging, suggesting superimposed osteomyelitis. There is additional abnormal marrow signal on the sesamoids, most pronounced in the medial sesamoid, increased in STIR and decreased in T1, this may be reactive or early osteomyelitis at these levels, shunning cellulitis, apparent draining sinus tract dorsally, there is not a well- defined abscess or lack of contrast in this portion of the evaluation. Abdomen and pelvis CT on 01/31 with probable mild diffuse colitis of the descending colon, there is associated mild focal ileus of the small bowel. No other acute process were seen. DISCHARGE PLAN: The patient is to follow up with her primary care physician as well as Dr. Galan from Infectious Disease and the orthopedic surgery team, as Orthopedic Surgery may need to take patient to OR in approximately 4 to 6 weeks after discharge. The patient is aware of this plan. While on antibiotics, she should have weekly labs drawn including CBC, CMP, CRP, and vanco trough. She is given a short course of oxycodone for severe pain. She was also referred to skilled home care with [facility]. Her most significant medication in addition is her IV vancomycin as well as oral levofloxacin. She was extensively educated on return precautions, which include but are not limited to worsening pain in foot with increased drainage or fevers. She should eat a healthy diet, low in processed foods and resume activity as tolerated with weightbearing of right heel. DISPOSITION: To home. CONDITION: Improved. TIME SPENT: Approximately 60 minutes was spent on discharge of this patient, more than half of which was spent with care coordination at bedside for interview and exam. [id number]/[facility] #: [id number] MTDD
== END 2019-02-09 12:50 | disposition home or self-care (01) | DRG 711 ==
LOC: ED 13:07 → MED 21:35 → OBSVTOIN 02-01 19:07
PROVIDERS: ADMIT Internal Medicine; ATTEND Internal Medicine
PROC: 0QBN0ZZ Excision of Right Metatarsal, Open Approach (ICD-10-PCS; principal; 2019-02-03 14:15)
PROC: 0SHM08Z Insertion of Spacer into Right Metatarsal-Phalangeal Joint, Open Approach (ICD-10-PCS; 2019-02-07)
PROC: 02HV33Z Insertion of Infusion Device into Superior Vena Cava, Percutaneous Approach (ICD-10-PCS; 2019-02-07)
DX: T81.49XA Infection following a procedure, other surgical site, initial encounter (principal); M86.171 Other acute osteomyelitis, right ankle and foot; L03.115 Cellulitis of right lower limb; K21.9 Gastro-esophageal reflux disease without esophagitis; G43.909 Migraine, unspecified, not intractable, without status migrainosus; L08.9 Local infection of the skin and subcutaneous tissue, unspecified; R11.2 Nausea with vomiting, unspecified; R19.7 Diarrhea, unspecified; Y83.8 Other surgical procedures as the cause of abnormal reaction of the patient, or of later complication, without mention of misadventure at the time of the procedure; F32.9 Major depressive disorder, single episode, unspecified; Z98.51 Tubal ligation status; Z90.49 Acquired absence of other specified parts of digestive tract; Z83.3 Family history of diabetes mellitus; Z82.61 Family history of arthritis; Z87.891 Personal history of nicotine dependence; Z72.89 Other problems related to lifestyle; Y92.9 Unspecified place or not applicable
CPT/HCPCS: 36415; 74176; 80048; 80053; 80202; 81003; 81015; 82272; 82565; 83605; 83630; 83690; 83735; 84520; 85025; 86140; 87040; 87045; 87046; 87070; 87073; 87077; 87086; 87205; 87328; 87329; 87493; 88304; 88311; 96361; 96374; 96375; 96376; 99285; A9270-GY; C1751; G0378; J0696; J1170; J1644; J1650; J1885; J2001; J2250; J2270; J2405; J2704; J3010; J3370; J3475; J3490

== ENCOUNTER 2019-03-14 12:20 | Observation (INO) | payer BC ==
[~2019-03-14 12:20] MED LIST changes: -Bupivacaine 0.25% EPI 200,000* 30 ML SDV ONE; -Dexamethasone IV* 4 MG/ML 1 ML (4 MG) ONE; -HYDROcodone/ACETAMIN 5-325 MG* 1 TAB ONE; -Ketorolac INJ* 30 MG/ML 1 ML VIAL ONE; -Labetalol IV* 5 MG/ML 20 ML VIAL ONE; -Lidocaine 1% INJ* 10 MG/ML 30 ML SDV ONE; -Midazolam* 1 MG/ML 2 ML VIAL (2 MG) ONE; -Midazolam* 1 MG/ML 5 ML VIAL (5 MG) ONE; -Naloxone* 0.4 MG/ML 1 ML VIAL IV PRN; -Propofol* 10 MG/ML 20 ML BTL ONE; -Vancomycin(*) 1,000 MG in NS 0.9% 250 ML* 250 ML IVPB ONE; -ceFAZolin 2 GM in NS PREMIX(*) 0 GM/0 ML BAG IVPB ONE; -fentaNYL* 50 MCG/ML 2 ML VIAL (100 MCG VIAL) ONE
[2019-03-14] MEDS ORDERED: ceFAZolin 2 GM in NS PREMIX(*) 2 GM/100 ML BAG IVPB ONE (13:31)
[2019-03-14] MEDS ORDERED: Buffered Lidocaine 1% SYRIN* 1 ML/SYRINGE INTRADERM ONE (13:31)
[2019-03-14 14:15] LABS: ABS Basophils 0.1 10^3/ul (0-0.2); ABS Eosinophils 0.4 10^3/ul (0-0.6); ABS Monocytes 0.6 10^3/ul (0-0.8); ABS Neutrophils 3.9 10^3/ul (1.5-7.7); Eosinophil % 6.7 %; Hematocrit 41 % (35-47); Hemoglobin 14.2 g/dL (12.0-16.0); Lymphocyte % 16.3 %; Mean Corpuscular HGB Conc 34 g/dL (31-36); Mean Corpuscular Hemoglobin 31 pg (27-31); Mean Corpuscular Volume 90 fL (80-97); Mean Platelet Volume 8.1 fL (7.4-10.4); Platelet Count 262 10^3/uL (150-450); Red Blood Count 4.58 10^6 /uL (3.70-4.87); Red Cell Distribution Width 14 % (10-15); White Blood Count 5.9 10^3/uL (3.5-10.8)
[2019-03-14] MEDS ORDERED: Lidocaine 2% PF* 10 ML AMP ONE (14:58)
[2019-03-14] MEDS ORDERED: Bupivacaine 0.25% SDV* 30 ML ONE (14:58)
[2019-03-14] MEDS ORDERED: Bupivacaine 0.25% SDV PF* 10 ML VIAL INJ ONE (14:59)
[2019-03-14] MEDS ORDERED: Naloxone* 0.4 MG/ML 1 ML VIAL IV PRN (15:11)
[2019-03-14] MEDS ORDERED: Acetaminophen IV 1GM/100ML * 1,000 MG/100 ML VIAL IVPB ONE (15:11)
[2019-03-14] MEDS ORDERED: Ondansetron INJ* 2 MG/ML VIAL IV PRN ×2 (15:11→17:40)
[2019-03-14] MEDS ORDERED: Lidocaine 2% PF * 5 ML VIAL ONE (15:28)
[2019-03-14] MEDS ORDERED: fentaNYL* 50 MCG/ML 2 ML VIAL (100 MCG VIAL) ONE ×3 (15:28→18:14)
[2019-03-14] MEDS ORDERED: Propofol* 10 MG/ML 20 ML BTL ONE (15:28)
[2019-03-14] MEDS ORDERED: Gelfoam Sponge SIZE 100* SPONGE ONE (16:05)
[2019-03-14] MEDS ORDERED: Ketorolac INJ* 30 MG/ML 1 ML VIAL ONE (16:59)
[2019-03-14] MEDS: fentaNYL* 50 MCG/ML 2 ML VIAL (100 MCG VIAL) IV PRN ×3 (17:32→18:15)
[2019-03-14] MEDS ORDERED: Acetaminophen IV 1GM/100ML * 100 ML ONE (17:34)
[2019-03-14] MEDS ORDERED: diPHENhydraMINE PO* 25 MG PO PRN (17:40)
[2019-03-14] MEDS ORDERED: diPHENhydraMINE IV* 50 MG/ML 1 ml VIAL (BENADRYL) IV PRN (17:40)
[2019-03-14] MEDS ORDERED: Magnesium Hydroxide LIQ* 30 ML UDC PO PRN (17:40)
[2019-03-14] MEDS ORDERED: traMADol TAB* 50 MG PO PRN (17:40)
[2019-03-14] MEDS ORDERED: Morphine INJ* 2 MG/ML 1 ML SYRINGE (TWO MG - NEW SYRINGE VERSION) IV PRN (17:40)
[2019-03-14] MEDS ORDERED: oxyCODONE TAB* 5 MG TAB ONE (17:47)
[2019-03-14] MEDS ORDERED: Ondansetron INJ* 2 MG/ML VIAL ONE (17:50)
[2019-03-14] MEDS ORDERED: Lactated Ringers 1000 ML Bag* 1,000 ML IV SCH (18:00)
[2019-03-14] MEDS ORDERED: Vancomycin per Pharmacy* NOTE FOLLOW UP SCH (18:00)
[2019-03-14] MEDS: oxyCODONE TAB* 5 MG TAB PO PRN ×2 (18:07→22:05)
[2019-03-14 19:35] LABS: Albumin 4.4 g/dL (3.2-5.2); Total Bilirubin 0.4 mg/dL (0.2-1.0)
[2019-03-14 19:42] LABS: Albumin/Globulin Ratio 1.8 (1-3); BUN/Creatinine Ratio 24.6 (8-20); C Reactive Protein 1.66 mg/L (<8.01); EGFR African American 115.8 (>60); EGFR Non-African American 95.7 (>60); Globulin 2.5 g/dL (2-4); Total Protein 6.9 g/dL (6.4-8.9)
[2019-03-14 20:07] LABS: Vancomycin Random 6.5 mcg/mL
[2019-03-14] MEDS: Docusate CAP* 100 MG PO SCH (21:03)
[2019-03-14] MEDS: Magnesium Hydroxide LIQ* 30 ML UDC PO SCH (21:03)
[2019-03-14] MEDS: Ketorolac INJ* 30 MG/ML 1 ML VIAL IV PRN (21:14)
[2019-03-14] MEDS ORDERED: Vancomycin(*) 1,250 MG IV x ONCE IVPB ONE ×2 (22:00)
--- NOTE | 2019-03-14 22:47 | OP ---
DATE OF OPERATION: 03/14/19 - ROOM #333 DATE OF : 67 SURGEON: Aubrey Faust MD PRE-OP DIAGNOSIS: Osteomyelitis with previous resection, partial first metatarsal, right foot. POST-OP DIAGNOSIS: Osteomyelitis with previous resection, partial first metatarsal, right foot. OPERATIVE PROCEDURE: Reconstruction right first metatarsal with first metatarsophalangeal fusion using iliac crest graft. DESCRIPTION OF PROCEDURE: The patient was taken to the operating room, where we made a longitudinal incision over the dorsum of her first MTP joint. The cement spacer was removed, we found clear serous fluid around the spacer, but nothing grossly purulent. We freshened the bony end of the metatarsal and the proximal phalanx using small power gustavo. Soft tissue debridement was performed of the bed around the cement spacer. Cultures were sent. We then made a 5-cm incision at the anterolateral iliac crest. Subperiosteal dissection was taken down inside and outside of the anterior crest where a block was removed 2 cm proximal to the ASIS, 2.5 cm in length and 2.5 cm deep. This was a full thickness graft. Local hemostasis was obtained and a Gelfoam plug put into the space in the iliac crest. We closed the deep fascia with 0 Vicryl, Monocryl for the subcu and subcutaneous 3- 0 Monocryl for the skin. The graft was then fashioned to fit the defect between the metatarsal shaft and the proximal phalanx. This was held with some smooth K wires. We then placed an F3 plate, rigid straight over the dorsum, fixed with a combination of locking and nonlocking screws and a more flexible plate along the medial aspect, also fixed with locking and nonlocking screws. X-rays intraoperatively showed good hardware fixation, good alignment overall. We then irrigated thoroughly, closing with 2-0 Monocryl sutures, nylon for the skin and a compression dressing , plaster splint applied. [id number]/[facility] #: [id number] [facility]
[2019-03-14] MEDS: Cyclobenzaprine TAB* 10 MG PO PRN (22:54)
[2019-03-14] MEDS: Acetaminophen TAB* 325 MG PO SCH ×3 (22:59→23:23)
[2019-03-15] MEDS: oxyCODONE TAB* 5 MG TAB PO PRN ×6 (02:07→23:36)
[2019-03-15 05:15] LABS: Hematocrit 37 % (35-47); Hemoglobin 12.4 g/dL (12.0-16.0)
[2019-03-15 05:31] LABS: Calcium 8.7 mg/dL (8.6-10.3); EGFR African American 132.1 (>60); EGFR Non-African American 109.2 (>60); Potassium 3.8 mmol/L (3.5-5.0)
[2019-03-15] MEDS ORDERED: Vancomycin(*) 1,000 MG in NS 0.9% 250 ML* 250 ML IV SCH (06:00)
[2019-03-15] MEDS: Cyclobenzaprine TAB* 10 MG PO PRN ×3 (06:06→19:48)
[2019-03-15] MEDS: Acetaminophen TAB* 325 MG PO SCH ×2 (06:06→14:29)
[2019-03-15 08:13] LABS: Albumin 3.8 g/dL (3.2-5.2); Globulin 1.9 g/dL (2-4); Indirect Bilirubin 0.4 mg/dL (0.3-1.0); Total Bilirubin 0.5 mg/dL (0.2-1.0); Total Protein 5.7 g/dL (6.4-8.9)
[2019-03-15] MEDS: Multivitamins/Minerals TAB PO SCH (08:42)
[2019-03-15] MEDS: Aspirin TAB* 325 MG PO SCH (08:42)
[2019-03-15] MEDS: Pantoprazole TAB * 40 MG TAB PO SCH (08:42)
[2019-03-15] MEDS: Docusate CAP* 100 MG PO SCH ×2 (08:42→21:25)
[2019-03-15] MEDS: Lactobacillus Acidophilus* 1 TAB PO SCH (08:42)
[2019-03-15] MEDS: Magnesium Hydroxide LIQ* 30 ML UDC PO SCH ×2 (08:44→21:26)
[2019-03-15] MEDS ORDERED: Vitamin THERAPEUTIC TAB PO SCH (09:00)
[2019-03-15] MEDS ORDERED: BuPROPion XL* 300 MG TAB.XL PO SCH (09:00)
[2019-03-15] MEDS: Ketorolac INJ* 30 MG/ML 1 ML VIAL IV PRN (12:56)
--- NOTE | 2019-03-15 12:56 | PN ---
Progress Note - Progress Note Date of Service: 03/15/19 SOAP: Subjective: []Pt seen at bedside. Her pain is well controlled, though she feels uneasy mobilizing. PT worked with her today, patient felt unsteady and unsafe to DC home. Denies CP, SOB, dizziness, nausea. Objective: []Gen: NAD, appears well RLE: splint CDI. Able to wiggle toes 2-5, unable to move 1st digit same as preop. Sensation intact to light touch distally, cap refill less than two seconds distally Graft site R hip dressing CDI Assessment: []Osteomyelitis with previous resection, partial first metatarsal, right foot. OPERATIVE PROCEDURE: Reconstruction right first metatarsal with first metatarsophalangeal fusion using iliac crest graft. Plan: []NWB RLE Aspirin 325 mg daily Cont vanco another week Anticipate DC home tomorrow Vital Signs Temp 98.2 F 03/15/19 11:05 Pulse 71 03/15/19 11:05 Resp 16 03/15/19 11:05 BP 113/69 03/15/19 11:05 Pulse Ox 99 03/15/19 11:05 Intake & Output 03/14/19 03/15/19 03/15/19 18:59 06:59 18:59 Intake Total 900 1300 1340 Output Total 850 600 Balance 900 450 740 Weight 155 lb 0.006 oz Intake: IV Fluids 900 400 980 LR 900 400 980 Oral 900 360 Output: Urine 850 600 Laboratory Last Values WBC 5.9 10^3/uL (3.5-10.8) 03/14/19 14:00 RBC 4.58 10^6 /uL (3.70-4.87) 03/14/19 14:00 Hgb 12.4 g/dL (12.0-16.0) 03/15/19 04:44 Hct 37 % (35-47) 03/15/19 04:44 MCV 90 fL (80-97) 03/14/19 14:00 MCH 31 pg (27-31) 03/14/19 14:00 MCHC 34 g/dL (31-36) 03/14/19 14:00 RDW 14 % (10-15) 03/14/19 14:00 Plt Count 262 10^3/uL (150-450) 03/14/19 14:00 MPV 8.1 fL (7.4-10.4) 03/14/19 14:00 Neut % (Auto) 65.7 % 03/14/19 14:00 Lymph % (Auto) 16.3 % 03/14/19 14:00 [place] % (Auto) 9.4 % 03/14/19 14:00 Eos % (Auto) 6.7 % 03/14/19 14:00 Baso % (Auto) 1.9 % 03/14/19 14:00 Absolute Neuts (auto) 3.9 10^3/ul (1.5-7.7) 03/14/19 14:00 Absolute Lymphs (auto) 1.0 10^3/ul (1.0-4.8) 03/14/19 14:00 Absolute Monos (auto) 0.6 10^3/ul (0-0.8) 03/14/19 14:00 Absolute Eos (auto) 0.4 10^3/ul (0-0.6) 03/14/19 14:00 Absolute Basos (auto) 0.1 10^3/ul (0-0.2) 03/14/19 14:00 Absolute Nucleated RBC 0.0 10^3/ul 03/14/19 14:00 Nucleated RBC % 0.0 03/14/19 14:00 Sodium 139 mmol/L (135-145) 03/15/19 04:44 Potassium 3.8 mmol/L (3.5-5.0) 03/15/19 04:44 Chloride 108 mmol/L (101-111) 03/15/19 04:44 Carbon Dioxide 26 mmol/L (22-32) 03/15/19 04:44 Anion Gap 5 mmol/L (2-11) 03/15/19 04:44 BUN 11 mg/dL (6-24) 03/15/19 04:44 Creatinine 0.58 mg/dL (0.51-0.95) 03/15/19 04:44 Est GFR ( Amer) 132.1 (>60) 03/15/19 04:44 Est GFR (Non-Af Amer) 109.2 (>60) 03/15/19 04:44 BUN/Creatinine Ratio 19.0 (8-20) 03/15/19 04:44 Glucose 113 mg/dL (70-100) H 03/15/19 04:44 Calcium 8.7 mg/dL (8.6-10.3) 03/15/19 04:44 Total Bilirubin 0.50 mg/dL (0.2-1.0) 03/15/19 04:44 Direct Bilirubin 0.10 mg/dL (0.03-0.18) 03/15/19 04:44 Indirect Bilirubin 0.4 mg/dL (0.3-1.0) 03/15/19 04:44 AST 256 U/L (13-39) H 03/15/19 04:44 ALT 268 U/L (7-52) H 03/15/19 04:44 Alkaline Phosphatase 108 U/L (34-104) H 03/15/19 04:44 C-Reactive Protein 1.66 mg/L (<8.01) 03/14/19 14:00 Total Protein 5.7 g/dL (6.4-8.9) L 03/15/19 04:44 Albumin 3.8 g/dL (3.2-5.2) 03/15/19 04:44 Globulin 1.9 g/dL (2-4) L 03/15/19 04:44 Albumin/Globulin Ratio 2.0 (1-3) 03/15/19 04:44 Random Vancomycin 6.5 mcg/mL 03/14/19 14:00
[2019-03-15] MEDS: Ondansetron ODT TAB* 4 MG PO PRN (15:52)
--- NOTE | 2019-03-15 20:24 | CONS ---
CONSULTATION REPORT: DATE OF CONSULT: 03/15/19 PRIMARY CARE PROVIDER: Dr. Aubrey Calderon. PROVIDER REQUESTING CONSULTATION: ALTHEA Yousif CONSULTING SERVICE: Infectious Disease. PROVIDER: Roger Solo NP ATTENDING PROVIDER: Dr. Baron Galan * (dictated by Roger Solo NP). REASON FOR CONSULT: Right first toe osteomyelitis. IMPRESSION: 1. Right first toe acute osteomyelitis. The patient initially presented to the hospital in January with cellulitis and acute osteo, having an MRI showing osteomyelitis of the right first toe. She underwent incision and debridement of the right first metatarsophalangeal joint with Dr. Faust on 02/03/19. Wound cultures from that procedure with no growth. She was placed on a course of IV vancomycin, which she has completed almost 6 weeks outpatient (was scheduled to end on 03/18). Previously, the wound had grown enterococcus, Stenotrophomonas maltophilia, methicillin-resistant Staph aureus, and Staph aureus. She presented to the hospital yesterday for a bone graft for reconstruction of the foot. She has been afebrile. No leukocytosis. Her CRP was normal at 1.66 yesterday. Preliminary cultures from surgery yesterday with no growth on day #1, with 3+ epithelial cells, 1+ neutrophils; anaerobic culture with no growth. 2. Transaminitis. The patient was noted yesterday to have an elevated ALT. This had been slightly elevated in January and earlier in February. Repeat labs today show an AST of 256 and an ALT of 268 and an alk phos of 108. Unclear etiology. This could be secondary to the vancomycin she has been on or secondary to hypotension while in the operating room. RECOMMENDATIONS/PLAN: Recommend discontinuing vancomycin and remove her PICC line. Will start linezolid 600 mg by mouth twice daily for 2 weeks. We will repeat LFTs tomorrow. Recommend holding any hepatic toxic medications. While she is on linezolid, her bupropion will need to be decreased to 150 mg daily and she can resume her regular dosing when she is off of linezolid. HISTORY OF PRESENT ILLNESS: Ms. Gu is a 53-year-old female with past medical history significant for depression, history of cyclic nausea and vomiting, pancreatitis, and migraines. She initially underwent a right hallux valgus repair with Dr. Stein on 12/10/18. She was seen in his office on 12/29/18 and had sutures removed, at which point the incision on the right first toe opened up. Cultures were obtained at that time showing Staph aureus and she was placed on antibiotics by Dr. Stein. He continued to follow her closely and took her to the operating room on 01/14/19 in the setting of cellulitis and an abscess and wound dehiscence. She underwent an incision and drainage and pulse lavage at that time. At the time of the 01/14/19 surgery, her cultures showed methicillin- resistant Staph aureus and Enterococcus faecalis and she was placed on a course of Bactrim. The Bactrim caused nausea and vomiting. She had another culture showing Enterococcus faecalis and Stenotrophomonas maltophilia and was transitioned to Cipro from Bactrim due to the side effects she has having with Bactrim. The patient was also seen in consultation by Dr. Faust outpatient. She presented to the emergency room on 01/31/19 with nausea, vomiting, abdominal pain with loose bowel movements. She had an abdominal CT showing colitis and negative C. diff testing. She was seen by Dr. Faust in the hospital, he had concerns for a ongoing wound and possible infection in the setting of an exposed tendon in her foot and increasing erythema. She had an x-ray showing hardware removal of the foot with lucency in the distal first metatarsal and underwent an MRI. The MRI on 02/01/19 showed previous bunionectomy and first metatarsal ostectomy with residual nonunion appearing oblique ostectomy line with corresponding abnormal marrow signal extending into the distal third of the shaft of the metatarsal suggesting superimposing osteomyelitis most pronounced at the medial sesamoid and surrounding cellulitis. On 02/03/19, she returned to the OR and underwent debridement of the right first MTP joint. Cultures from that time showed no growth. She was eventually discharged home on 6-week course of IV vancomycin that she was due to complete later this week. She has been doing well outpatient. The foot has been healing and improving. She denies fevers, chills , pain in the foot. She presented for an elective reconstruction of the right first metatarsal with a first metatarsophalangeal fusion using iliac crest graft yesterday on 03/14/19. Postoperatively, she has been doing well, but was noted to have transaminitis today. She denies abdominal pain. PAST MEDICAL HISTORY: 1. Depression. 2. Recurrent nausea and vomiting. 3. Pancreatitis. 4. Migraines. PAST SURGICAL HISTORY: 1. Status post right bunionectomy with hardware on 12/10/18. 2. Status post excision of hardware on 01/14/19 with incision and drainage. 3. Status post debridement of the right first MTP joint on 02/03/[address] Faust. 4. Status post cement spacer, incision and drainage of the right first MTP joint and closure on 02/07/[address] Faust. 5. Status post cholecystectomy in 1999. 6. Status post tubal ligation. MEDICATIONS: Home medications: 1. Bupropion XL 300 mg by mouth daily. 2. Aspirin 325 mg by mouth daily. 3. Oxycodone 5 to 10 mg by mouth every 4 hours as needed for pain. 4. Lactobacillus 1 tablet by mouth daily. 5. Multivitamin 1 tablet by mouth daily. 6. Naproxen 500 mg by mouth twice daily as needed for pain. 7. Omeprazole 20 mg by mouth every morning. 8. Vancomycin 1 g IV q.12 hours, last day scheduled for 03/18/19. Hospital medications: 1. Aspirin 325 mg by mouth daily. 2. Dulcolax suppository 10 mg per rectum daily as needed for constipation. 3. Bupropion XL 300 mg by mouth daily. 4. Flexeril 10 mg by mouth every 6 hours as needed for muscle spasms. 5. Benadryl 25 mg IV or p.o. every 6 hours as needed for itching. 6. Colace 100 mg by mouth twice daily. 7. Toradol 30 mg IV every 6 hours as needed for pain. 8. Lactated Ringer's 100 mL an hour intravenously. 9. Lactobacillus 1 tablet by mouth daily. 10. Lactulose 30 mL by mouth twice daily as needed for constipation. 11. Milk of magnesia 30 mL by mouth twice daily until BM, followed by 30 mL by mouth every 6 hours as needed for constipation. 12. Morphine sulfate 2 mg IV every 4 hours as needed for pain. 13. Multivitamin 1 tablet by mouth daily. 14. Zofran 4 mg IV or p.o. every 6 hours as needed for nausea. 15. Oxycodone 5 to 10 mg by mouth every 4 hours as needed for pain. 16. Protonix 40 mg by mouth every morning. 17. Acetaminophen 975 mg by mouth every 8 hours. ALLERGIES: No known drug allergies. FAMILY HISTORY: Mother with a history of rheumatoid arthritis and passed from complications due to bradycardia. Father with a history of diabetes mellitus and passed due to bladder cancer. No family history of recurrent or resistant infections. SOCIAL HISTORY: Denies alcohol or recreational drug use. She is a former smoker, quitting in 2013. Prior to that, she had a 14-pack year smoking history. REVIEW OF SYSTEMS: I performed a 10-point review of systems. All the pertinent positives and negatives are mentioned in the history of present illness. The remaining review of systems are negative. PHYSICAL EXAM: Vital Signs: Temperature 98.3, heart rate 79, respiratory rate 16, O2 sat 99% on room air, blood pressure 113/60. General Appearance: Alert, pleasant, appears to be in no acute distress, sitting up in bed. Head: Normocephalic, atraumatic. EENT: Extraocular movements are intact. No subconjunctival hemorrhage. Moist mucous membranes. Neck: Supple. No lymphadenopathy. Neurological: Alert and oriented x4. Cranial nerves II through XII are grossly intact. Cardiovascular: Regular rate and rhythm. S1, S2 present. No murmurs, rubs, or gallops heard. Respiratory: No accessory muscle use. The lungs are clear to auscultation bilaterally. Abdomen: Bowel sounds present. Abdomen is soft, nontender, nondistended. Extremities: No lower extremity edema. Musculoskeletal: No clubbing or cyanosis noted. Exhibits good strength in all extremities. Psychological: Calm and cooperative. Skin: No rashes or abnormalities seen on the exposed skin. She has a large surgical dressing to her right lower extremity. DIAGNOSTIC STUDIES/LAB DATA: Sodium 139, potassium 3.8, chloride 108, CO2 of 26 , BUN 11, creatinine 0.58, glucose 113. Bilirubin 0.50, AST 256, ALT 268, alk phos 108. CBC from yesterday: White blood cell count 5.8, hemoglobin 14.2, hematocrit 41, and platelet count 262. Vanco trough from yesterday 6.5. Please see impression and recommendations outlined above. Recommendations have been discussed with ALTHEA Yousif. Thank you for asking us to see Ms. Gu in consultation. The case has been reviewed with my attending, Dr. Baron Galan, who agrees with the plan of care. Reviewed by ROGER SOLO, ERCIA-Corinne 03/16/19 1412 [id number] #: [id number] [facility]
[2019-03-15] MEDS: Linezolid TAB* 600 MG PO SCH (21:25)
[2019-03-16] MEDS: Ondansetron ODT TAB* 4 MG PO PRN (00:34)
[2019-03-16] MEDS ORDERED: Vancomycin Trough Check NOTE FOLLOW UP ONE (06:00)
[2019-03-16 06:17] LABS: Hematocrit 38 % (35-47)
[2019-03-16 06:35] LABS: Albumin 3.7 g/dL (3.2-5.2); Albumin/Globulin Ratio 1.5 (1-3); BUN/Creatinine Ratio 11.1 (8-20); Calcium 8.9 mg/dL (8.6-10.3); EGFR African American 143.5 (>60); EGFR Non-African American 118.6 (>60); Globulin 2.4 g/dL (2-4); Potassium 3.8 mmol/L (3.5-5.0); Total Bilirubin 0.4 mg/dL (0.2-1.0); Total Protein 6.1 g/dL (6.4-8.9)
[2019-03-16 06:38] LABS: Vancomycin Trough 4.2 mcg/mL
[2019-03-16] MEDS: oxyCODONE TAB* 5 MG TAB PO PRN ×2 (07:06→12:56)
[2019-03-16] MEDS ORDERED: BuPROPion XL* 150 MG TAB.XL PO SCH (09:00)
[2019-03-16] MEDS: Docusate CAP* 100 MG PO SCH (10:00)
[2019-03-16] MEDS: Aspirin TAB* 325 MG PO SCH (10:00)
[2019-03-16] MEDS: Linezolid TAB* 600 MG PO SCH (10:01)
[2019-03-16] MEDS: Multivitamins/Minerals TAB PO SCH (10:01)
[2019-03-16] MEDS: Pantoprazole TAB * 40 MG TAB PO SCH (10:01)
[2019-03-16] MEDS: Magnesium Hydroxide LIQ* 30 ML UDC PO SCH (10:01)
[2019-03-16] MEDS: Lactobacillus Acidophilus* 1 TAB PO SCH (10:01)
--- NOTE | 2019-03-16 10:06 | PN ---
Progress Note - Progress Note Date of Service: 03/16/19 SOAP: Subjective: CC: Right 1st toe infection s/p reconstruction HPI: Ms. Gu is a 53 yo female with PMH significant for depression, history of cyclic nausea and vomiting, pancreatitis, migraines, and right 1st toe acute osteomyelitis. Reports that pain is controlled in the right LE. Denies fever, chills, nausea, vomiting or diarrhea. She had heart burn overnight and had an episode of vomiting. Otherwise feeling well. Objective: Vital Signs - 8 hr 03/16/19 03/16/19 07:06 07:27 Temperature 98.6 F Pulse Rate 89 Respiratory 18 16 Rate Blood Pressure 126/75 (mmHg) O2 Sat by Pulse 98 Oximetry Physical Exam: General: NAD, sitting up in bed Neurological: Alert and Oriented HEENT: Moist MM, no thrush Cardiovascular: Heart rate regular Respiratory: Lung sounds clear Abdominal: Bowel sounds present; ABD soft, non tender and non distended Skin: No rash Laboratory Results - last 24 hr 03/16/19 03/16/19 05:55 05:55 Hgb 13.0 Hct 38 Sodium 138 Potassium 3.8 Chloride 106 Carbon Dioxide 26 Anion Gap 6 BUN 6 Creatinine 0.54 Est GFR ( Amer) 143.5 Est GFR (Non-Af Amer) 118.6 BUN/Creatinine Ratio 11.1 Glucose 111 H Calcium 8.9 Total Bilirubin 0.40 AST 88 H ALT 212 H Alkaline Phosphatase 108 H Total Protein 6.1 L Albumin 3.7 Globulin 2.4 Albumin/Globulin Ratio 1.5 Vancomycin Trough 4.2 Microbiology 03/14/19 18:20 Anaerobic Culture - Preliminary Wound No Growth Day 2 03/14/19 18:20 Gram Stain - Final Foot Right Wound Culture - Preliminary No Growth Day 2 Assessment: 1. Right first toe acute osteomyelitis. January 2019 dx with cellulitis and acute osteo, S/P incision and debridement of the right first metatarsophalangeal joint on 02/03/19. Wound cultures from that procedure with no growth. She was placed on a course of IV vancomycin, completing almost 6 weeks outpatient. Previously, the wound had grown enterococcus, Stenotrophomonas maltophilia, methicillin-resistant Staph aureus, and Staph aureus. Now S/P iliac crest bone graft for reconstruction of the foot, POD #2. She has been afebrile. No leukocytosis. Her CRP was not elevated on admission. Preliminary cultures from surgery yesterday with no growth on day #2 , 3+ epithelial cells, 1+ neutrophils; anaerobic culture with no growth. 2. Transaminitis. Elevated at admission and yesterday AST 256, ALT 268, and alk phos 108. Unclear etiology. This could be secondary to the vancomycin she had been on. AST improving, ALT and alk phos still elevated. Continues to deny ABD pain. Plan: Continue linezolid 600 mg by mouth twice daily, day 214. She should have repeat LFTs next weeks. While she is on linezolid, her bupropion will need to be decreased to 150 mg daily. She can resume her regular dosing when she is off of linezolid. Followup with ID outpatient, she already has an appointment April 07 at 9 am. 25 minutes floor time. > 50% spent with the patient discussing recommendation for ABX, when to call the office (fever, rash, diarrhea), and followup.
--- NOTE | 2019-03-16 10:40 | DS ---
Orthopedic Discharge Summary - Discharge Summary Date of Admission:03/14/19 Date of Discharge: 03/16/19 Date of Surgery: 03/14/19 Attending Orthopedic Provider: Dr Faust Pre-operative Diagnosis: [Osteomyelitis with previous resection, partial first metatarsal, right foot. OPERATIVE PROCEDURE: Reconstruction right first metatarsal with first metatarsophalangeal fusion using iliac crest graft.] Disposition of Patient: home Condition of Patient: stable History: AMEYA RODRIGUEZ is a 53 year old F with Osteomyelitis with previous resection, partial first metatarsal, right foot. Hospital Course: AMEYA was admitted to [facility] on 03/14/19. Patient underwent a [Reconstruction right first metatarsal with first metatarsophalangeal fusion using iliac crest graft without complication followed by a brief recovery in PACU and transfer to the Short Stay Surgical Unit in stable condition. Our infectious disease service, physical therapy and occupational therapy also participated in this patients care. Post-op day 1: patient was alert and in no acute distress. Dressing was clean, dry and intact. Able to f/e digits 2-5, sensation intact to light touch distally and cap refill less than two seconds. POD 2 pt felt well, no CP, SOB, dizziness or nausea. Pain was well controlled and she felt safe ambulating. Exam was unchanged from POD 1. Patient was deemed to be medically and orthopedically stable for discharge. Physical therapy goals were met. Home Medications Medication Instructions Recorded Confirmed Type Multivitamins/Minerals TAB* 1 tab PO QAM 03/19/15 03/14/19 History [Theragran/minerals TAB*] Omeprazole CAP (NF) [Prilosec CAP* 20 mg PO QAM 03/19/15 03/14/19 History 20 MG] Naproxen [EC-Naproxen] 500 mg PO BID PRN #30 tablet. 02/09/19 03/14/19 Rx Lactobacillus Acidophilus* 1 tab PO QAM 03/08/19 03/14/19 History Aspirin TAB* [Aspirin 325 MG TAB*] 325 mg PO DAILY tab 03/15/19 Rx Docusate CAP* [Colace Cap*] 100 mg PO BID cap 03/15/19 Rx oxyCODONE TAB* [Roxycodone TAB 5 5 mg PO Q4H PRN tab MDD 8 03/15/19 Rx mg*] BuPROPion XL* [Bupropion XL*] 300 mg PO QAM #0 03/16/19 03/14/19 Rx Bupropion XL* [Wellbutrin XL *] 150 mg PO DAILY #30 tab 03/16/19 Rx Linezolid TAB* [Zyvox 600 MG TAB*] 600 mg PO Q12H 14 Days #20 tab 03/16/19 Rx oxyCODONE TAB* [Roxycodone TAB 5 5 mg PO Q4H PRN #20 tab MDD 6 03/16/19 Rx mg*] Discharge Instructions following Orthopedic Surgery: Activity: * Nonweightbearing right lower extremity * Continue physical therapy and occupational therapy exercises as shown Wound care: * Keep splint clean, dry and intact Call Orthopedic office for: * Increased drainage * Redness * Increased pain * Fever Go to ER with shortness of breath or chest pain. Diet: * Regular diet * Increase fluids and fiber to prevent constipation. * Continue to use stool softeners, call office if no bowel motion within 48 hours. Medications See Home Medication List in your packet for medications that you should take after discharge. DVT Prophylaxis: Aspirin Dosin mg once a day Pain Control: Oxycodone 5 mg Dosin tab for severe pain and 2 tabs for breakthrough pain by mouth every 4-6 hours as needed for pain. Maximum of 6 tabs per day. Linezolid 600 mg every 12 hours for 2 weeks. Pharmacy had only 20 tabs, you will need a refill to complete this 2 week course. FOLLOW UP: Follow up with [Govind] Within 7 days, call for appointment Please call our office with any questions or concerns ([phone]) Infectious disease will call you to schedule an appt . Have LFTs drawn thursday per [facility]
[2019-03-16 11:07] VITALS: BP 129/80
[2019-03-16] MEDS ORDERED: Bisacodyl SUPP* 10 MG SUPP PR PRN (17:40)
== END 2019-03-16 14:50 | disposition home or self-care (01) ==
LOC: OR 12:20 → INTOOBSV 17:40 → SSU 17:40
PROVIDERS: ADMIT Orthopaedic Surgery; ATTEND Orthopaedic Surgery
DX: M86.171 Other acute osteomyelitis, right ankle and foot (principal); T84.116A Breakdown (mechanical) of internal fixation device of bone of right lower leg, initial encounter; Z96.7 Presence of other bone and tendon implants; Z79.899 Other long term (current) drug therapy; Z79.82 Long term (current) use of aspirin; Z87.891 Personal history of nicotine dependence; F32.9 Major depressive disorder, single episode, unspecified; Z87.19 Personal history of other diseases of the digestive system; R74.0 Nonspecific elevation of levels of transaminase and lactic acid dehydrogenase [LDH]
CPT/HCPCS: 36415; 76000; 80048; 80053; 80076; 80202; 85014; 85018; 85025; 86140; 87070; 87073; 87205; 88300; 96374; 96375; 96376; 97530; A9270-GY; G0378; J0690; J1885; J2001; J2270; J2405; J2704; J3010; J3370; J3490

== ENCOUNTER 2019-05-03 11:16 | Inpatient (IN) | payer SELFPAY ==
[2019-05-03] MEDS ORDERED: Buffered Lidocaine 1% SYRIN* 1 ML/SYRINGE INTRADERM ONE ×2 (11:33→11:44)
--- NOTE | 2019-05-03 11:39 | HP ---
PREOPERATIVE HISTORY AND PHYSICAL: DATE OF ADMISSION/SURGERY: 05/03/19 DATE OF OFFICE VISIT: 05/03/19 ATTENDING SURGEON: Dr. Aubrey Faust.* (DICTATED BY ALTHEA LOCO) PROCEDURE: Right foot debridement of ulcer and possible hardware removal. CHIEF COMPLAINT: Right foot. HISTORY OF PRESENT ILLNESS: Karrie is a 53-year-old female who presents to the clinic for followup of her right foot. She has had 5 right foot surgeries in the past. She was doing well and her wound was healing well until 5 days ago. On , she noticed that the wound started to breakdown and she had purulent discharge. She states that she feels some pulling pain. She rates it as an 8/10 in her foot. She denies fever or chills. She does have numbness and tingling of the big toe. She denies chest pain, shortness of breath, or calf pain, and is doing well otherwise. She has failed conservative measures; therefore, agreed to undergo right foot debridement of ulcer, possible hardware removal with Dr. Faust on 05/03/19. PAST MEDICAL HISTORY: Denies. PAST SURGICAL HISTORY: 1. Cholecystectomy. 2. Tubal ligation. 3. x3. 4. Right foot surgeries x5. The patient denies prior complication with anesthesia. MEDICATIONS: 1. Aspirin 325 mg 1 by mouth daily. 2. Prilosec 40 mg 1 daily. 3. Multivitamin 1 by mouth every day. 4. Acetaminophen 250 mg 1 every 6 hours as needed for pain. 5. Bupropion 300 mg 1 daily. FAMILY HISTORY: Positive for diabetes and cancer. Denies family history of DVT or PE. SOCIAL HISTORY: She is a smoker, quit 4 years ago. She reports occasional alcohol consumption. REVIEW OF SYSTEMS: A 14-point review of systems was reviewed with the patient. Positive for current complaint, otherwise negative. Denies fever, chills, chest pain, shortness of breath, history of bleeding disorder, history of DVT or PE. PHYSICAL EXAMINATION GENERAL: A 53-year-old well-developed, well-nourished female, in no acute distress. VITAL SIGNS: Height 65, weight 162, blood pressure 120/80, respiratory rate 16 , temperature 97.7, BMI 27.0. HEENT: Normocephalic, atraumatic. PERRLA. Throat clear. NECK: Supple. PULMONARY: Lungs are clear to auscultation bilaterally. No wheezing, rhonchi, or rales. CARDIO: Regular rate and rhythm. S1, S2. No murmurs, gallops, or rubs. No edema. ABDOMEN: Positive bowel sounds. Soft, nontender. NEURO: Alert and oriented x3. Cranial nerves grossly intact. MUSCULOSKELETAL: Right lower extremity: She does have breakdown of the right foot wound over the first metatarsal with purulent discharge, mild surrounding erythema. Able to flex and extend her toes with some discomfort. Able to flex and extend her ankle. Calves soft, nontender. +2 DP pulse. Sensation intact to light touch distally except for the great toe where there is decreased sensation. Brisk cap refill. DIAGNOSTIC STUDIES: Multiple x-rays of the right foot revealed presence of hardware from prior surgeries with adequate alignment. ASSESSMENT AND PLAN: Karrie is a 53-year-old female who presents to clinic for followup of her right foot. She had wound breakdown with purulent discharge. It is currently infected. She has failed conservative measures; therefore, requires a right foot debridement of the ulcer and possible hardware removal with Dr. Faust today on 05/03/19. She will be admitted postoperatively for IV antibiotic therapy and wound cultures were taken today in clinic and sent to the lab which will continue to be followed. She will follow up 10 to 14 days postop for reevaluation. ALTHEA LOCO [id number]/[facility] #: [id number] MOSHE
[2019-05-03] MEDS ORDERED: Famotidine IV* 10 MG/ML 2 ML (20 mg) IV ONE (11:44)
[2019-05-03] MEDS ORDERED: Bupivacaine 0.5%* 50 ML MDV VIAL ONE (11:47)
[2019-05-03] MEDS ORDERED: Lidocaine 2% PF* 10 ML AMP ONE (11:47)
[2019-05-03] MEDS ORDERED: Famotidine IV* 10 MG/ML 2 ML (20 mg) ONE (11:49)
[2019-05-03] MEDS ORDERED: PROCHLORPERAZINE INJ 5 MG/ML 2 ML VIAL IV PRN (11:52)
[2019-05-03] MEDS ORDERED: Naloxone* 0.4 MG/ML 1 ML VIAL IV PRN (11:52)
[2019-05-03] MEDS ORDERED: HYDROcodone/ACETAMIN 5-325 MG* 1 TAB PO PRN (11:52)
[2019-05-03] MEDS ORDERED: oxyCODONE/Acetamin 5/325 MG* TAB PO PRN ×2 (11:52→14:33)
[2019-05-03] MEDS ORDERED: Lactated Ringers 1000 ML Bag* 1,000 ML IV SCH (12:00)
[2019-05-03] MEDS ORDERED: fentaNYL* 50 MCG/ML 2 ML VIAL (100 MCG VIAL) ONE ×3 (12:53→15:09)
[2019-05-03] MEDS ORDERED: Midazolam* 1 MG/ML 5 ML VIAL (5 MG) ONE (12:53)
[2019-05-03] MEDS ORDERED: Lidocaine 2% PF * 5 ML VIAL ONE (13:16)
[2019-05-03] MEDS ORDERED: Propofol* 10 MG/ML 20 ML BTL ONE (13:16)
[2019-05-03] MEDS ORDERED: Ketorolac INJ* 30 MG/ML 1 ML VIAL ONE (13:23)
[2019-05-03] MEDS ORDERED: Ondansetron INJ* 2 MG/ML VIAL ONE (13:41)
[2019-05-03] MEDS ORDERED: diPHENhydraMINE IV* 50 MG/ML 1 ml VIAL (BENADRYL) IV PRN (14:25)
[2019-05-03] MEDS ORDERED: diPHENhydraMINE PO* 25 MG PO PRN (14:25)
[2019-05-03] MEDS ORDERED: Magnesium Hydroxide LIQ* 30 ML UDC PO PRN (14:25)
[2019-05-03] MEDS ORDERED: Cyclobenzaprine TAB* 10 MG PO PRN (14:25)
[2019-05-03] MEDS ORDERED: Ondansetron ODT TAB* 4 MG PO PRN (14:25)
[2019-05-03] MEDS ORDERED: HYDROcodone/ACETAMIN 5-325 MG* 1 TAB ONE (14:33)
[2019-05-03] MEDS ORDERED: Morphine INJ* 2 MG/ML 1 ML SYRINGE (TWO MG - NEW SYRINGE VERSION) IV PRN (14:33)
[2019-05-03] MEDS ORDERED: Polyethylene Glycol 3350* 17 GM PACKET PO PRN (14:33)
[2019-05-03] MEDS ORDERED: traMADol TAB* 50 MG PO PRN (14:33)
[2019-05-03] MEDS ORDERED: Vancomycin per Pharmacy* NOTE FOLLOW UP SCH (15:00)
[2019-05-03] MEDS: Lactated Ringers 1000 ML Bag* 1,000 ML IV SCH (15:52)
[2019-05-03] MEDS: oxyCODONE/Acetamin 5/325 MG* TAB PO PRN ×2 (16:26→20:49)
[2019-05-03] MEDS ORDERED: Vancomycin(*) 1,250 MG IV x ONCE IVPB ONE ×2 (16:30)
[2019-05-03] MEDS: Aspirin TAB* 325 MG PO SCH (17:25)
[2019-05-03] MEDS: Docusate CAP* 100 MG PO SCH (20:49)
[2019-05-03] MEDS: Acetaminophen TAB* 325 MG PO SCH (20:56)
[2019-05-03] MEDS: oxyCODONE TAB* 5 MG TAB PO PRN (22:57)
[2019-05-04] MEDS ORDERED: Vancomycin(*) 1,000 MG in NS 0.9% 250 ML* 250 ML IV SCH ×2
[2019-05-04] MEDS: Magnesium Hydroxide LIQ* 30 ML UDC PO SCH ×3 (00:03→21:01)
--- NOTE | 2019-05-04 00:07 | PN ---
Hospitalist Progress Note Date of Service: 05/04/19 Cross Cover Note Called by pharmacy overnigiht Wound micro showed Staph + and MRSA neg, downgrade from Vano to Cefazolin 1gq8 done.
[2019-05-04] MEDS: ceFAZolin 1 GM ADVAN(*) 1 GM in NS 0.9% 50 ML* 50 ML IVPB SCH ×2 (01:33→09:18)
[2019-05-04] MEDS: oxyCODONE/Acetamin 5/325 MG* TAB PO PRN ×5 (01:33→22:28)
--- NOTE | 2019-05-04 01:50 | OP ---
DATE OF OPERATION: 05/03/19 - ROOM #331 DATE OF : 67 SURGEON: Aubrey Faust MD TELEPHONE ASSEMBLER: Kyler Meeks PA-C PRE-OP DIAGNOSIS: Recurrent sepsis, right first metatarsophalangeal joint reconstruction. POST-OP DIAGNOSIS: Recurrent sepsis, right first metatarsophalangeal joint reconstruction. OPERATIVE PROCEDURE: Debridement right first metatarsophalangeal joint with hardware and bone removal. DESCRIPTION OF PROCEDURE: The patient was taken to the operating room where cultures were sent from the dehisced wound over the right dorsal forefoot. With an ankle Esmarch inflated, we incised longitudinally exposing the plates which were removed over the dorsal and medial aspect of the reconstruction. The autograft bone was not united at either end, so it was debrided and we re- cut the proximal phalanx to freshen that area as well. We used a rongeur to clean and debride all the surrounding soft tissues. We did 3 L pulsatile lavage as well as sending new cultures. We were able to close the defect with the Monocryl subcu and Prolene for the skin and a compressive dressing was applied. [id number]/[facility] #: [id number] [facility] MEDICAL CENTERLuis
[2019-05-04] MEDS: traZODone TAB* 50 MG TAB PO PRN ×3 (02:23→22:29)
[2019-05-04] MEDS: Lactated Ringers 1000 ML Bag* 1,000 ML IV SCH ×2 (03:32→13:41)
[2019-05-04] MEDS: Ondansetron INJ* 2 MG/ML VIAL IV PRN ×2 (03:35→09:36)
[2019-05-04] MEDS: Acetaminophen TAB* 325 MG PO SCH ×3 (06:40→20:49)
[2019-05-04] MEDS: Pantoprazole TAB * 40 MG TAB PO SCH (08:31)
[2019-05-04] MEDS: oxyCODONE TAB* 5 MG TAB PO PRN (08:31)
[2019-05-04] MEDS ORDERED: Ketorolac INJ* 30 MG/ML 1 ML VIAL IV ONE (09:00)
--- NOTE | 2019-05-04 09:42 | PN ---
Progress Note - Progress Note Date of Service: 05/04/19 SOAP: Subjective: []Patient seen and examined at bedside. She is tearful and frustrated by recurrent infections, pain this morning was 10/10 and she was given a one time dose of toradol which lessened pain to 7/10. Pain has been entirely unrelieved by percocet, oxycodone, morphine. She describes pain at surgical site as an unrelenting stabbing burning pain. Confirms nausea and vomiting, feels this is from being emotionally distraught. Denies CP, SOB, abd pain, dizziness. Objective: []Gen: Tearful, A&Ox3 RLE: Dressing CDI. Sensation intact to light touch distally and cap refill less than two seconds distally in right great toe as well as digits 2-5. Unable to f/ e 1st digit MTP which is consistent x several months. Able to f/e MTPs digits 2- 5. Calves supple and nontender without erythema, edema or palpable cords Assessment: []PRE-OP DIAGNOSIS: Recurrent sepsis, right first metatarsophalangeal joint reconstruction. OPERATIVE PROCEDURE: Debridement right first metatarsophalangeal joint with hardware and bone removal. Plan: []NWB RLE, OOB and ambulate with walker Cont IV abx per ID. Cultures + MSSA though not yet final, on cefazolin. Follow cultures Ordered scopolamine patch for nausea For pain added toradol 30 mg IV q 6 prn and gabapentin 300 mg po q 12 BMP ordered to eval renal fx before continuing around the clock NSAIDS Vital Signs Temp 98.2 F 05/04/19 07:26 Pulse 91 05/04/19 07:26 Resp 16 05/04/19 08:31 BP 135/76 05/04/19 07:26 Pulse Ox 98 05/04/19 07:26 Intake & Output 05/03/19 05/04/19 05/04/19 18:59 06:59 18:59 Intake Total 640 2095 Output Total 1250 500 Balance 640 845 -500 Weight 164 lb 3.2 oz Intake: IV Fluids 400 980 LR 400 980 IVPB 55 ABX - CEFAZOLIN 55 Oral 240 1060 Output: Urine 1250 500 Other: # Bowel Movements 0 Microbiology 05/03/19 17:00 Foot Right Skin and Soft Tissue MRSA/MSSA (PCR - Final Mrsa Negative S.aureus Positive 05/03/19 17:00 Foot Right Gram Stain - Final
[2019-05-04] MEDS ORDERED: Scopolamine 1.5 mg* PATCH TRANSDERM SCH (10:00)
[2019-05-04] MEDS: Aspirin TAB* 325 MG PO SCH (10:01)
[2019-05-04] MEDS: Lactobacillus Acidophilus* 1 TAB PO SCH (10:02)
[2019-05-04] MEDS: BuPROPion XL* 300 MG TAB.XL PO SCH (10:02)
[2019-05-04] MEDS: Gabapentin CAP(*) 300 MG PO SCH ×2 (10:02→20:44)
[2019-05-04] MEDS: Docusate CAP* 100 MG PO SCH ×2 (10:02→20:45)
[2019-05-04 11:32] LABS: ABS Eosinophils 0.1 10^3/ul (0-0.6); ABS Lymphocytes 0.4 10^3/ul (1.0-4.8); ABS Monocytes 0.5 10^3/ul (0-0.8); ABS Neutrophils 9.4 10^3/ul (1.5-7.7); Eosinophil % 0.8 %; Hematocrit 45 % (35-47); Hemoglobin 15.3 g/dL (12.0-16.0); Lymphocyte % 3.8 %; Mean Corpuscular HGB Conc 34 g/dL (31-36); Mean Corpuscular Hemoglobin 31 pg (27-31); Mean Corpuscular Volume 90 fL (80-97); Mean Platelet Volume 8.1 fL (7.4-10.4); Platelet Count 237 10^3/uL (150-450); Red Blood Count 4.95 10^6 /uL (3.70-4.87); Red Cell Distribution Width 14 % (10-15); White Blood Count 10.4 10^3/uL (3.5-10.8)
[2019-05-04 11:33] LABS: BUN/Creatinine Ratio 13.1 (8-20); EGFR African American 124.6 (>60); Potassium 3.7 mmol/L (3.5-5.0)
[2019-05-04 13:29] LABS: C Reactive Protein 40.45 mg/L (<8.01)
[2019-05-04] MEDS: PROCHLORPERAZINE INJ 5 MG/ML 2 ML VIAL IV PRN ×2 (14:10→20:48)
[2019-05-04] MEDS: Ketorolac INJ* 30 MG/ML 1 ML VIAL IV PUSH PRN ×2 (14:27→20:49)
--- NOTE | 2019-05-04 14:40 | CONS ---
CONSULTATION REPORT: DATE OF CONSULT: 05/04/19 PRIMARY CARE PROVIDER: Dr. Aubrey Calderon. PROVIDER REQUESTING CONSULTATION: Dr. Aubrey Faust. CONSULTING SERVICE: Infectious Disease. PROVIDER: Roger Solo NP. ATTENDING PROVIDER: Dr. Baron Galan.* (DICTATED BY ROGER SOLO NP) REASON FOR CONSULT: Right foot infection. IMPRESSION: 1. Right foot infection. The patient has had numerous surgical procedures with debridement, hardware placement, and hardware removal after an initial bunionectomy surgery in November of 2018. Previously, cultures with Enterococcus faecalis, stenotrophomonas, MRSA, and Staph aureus. There was a history of osteomyelitis in the foot in the past. She completed a 6-week course of vancomycin. After having her last reconstruction, she was placed on a 2- week course of linezolid and was doing well until the wound opened up last week. She returned to the operating room and had removal of the hardware yesterday. Initial culture results are PCR positive for Staph aureus and negative for MRSA. She was initially on vancomycin, but once the preliminary culture results came back with MSSA, she was switched to cefazolin. She has no leukocytosis. She is afebrile. She is having significant pain in the foot today. RECOMMENDATIONS/PLAN: Recommend continuing cefazolin at this time while we await final culture results. Will increase cefazolin to 2 gms IV every 8 hours. Will add a CRP to this morning's labs, and obtain blood cultures. We will continue to follow along and final recommendations will be based on the culture results and surgical pathology. HISTORY OF PRESENT ILLNESS: Ms. Gu is a 53-year-old female with past medical history significant for depression, cyclic nausea/vomiting, pancreatitis and migraines, who initially underwent a right bunionectomy with hardware on 12/10/18. She developed an infection in the foot and underwent excision of the hardware and debridement on 01/14/19. She then underwent a right first MTP debridement on 02/03/19 followed by placement of a cement spacer , debridement of the first MTP and closure on 02/07/19. Cultures obtained back in early December with Staph aureus. This later grew MRSA and enterococcus and the last surgery in December of 2018 with enterococcus and stenotrophomonas. She was ultimately discharged from the hospital on a 6-week course of IV vancomycin for osteomyelitis. She underwent a reconstruction with a first metatarsophalangeal fusion using an iliac crest graft. Following that procedure, the patient was discharged on a 2-week course of linezolid. She was last seen in the infectious disease office on 04/07/19, at which time the foot was looking good. The incision had closed, there was no erythema, swelling, or other signs of infection. She states that on , 04/28/19, after showering she noticed that part of the incision had opened up. She cleaned up the area and covered it with a bandage and the earliest that Dr. Faust's office was able to get her in was yesterday, 05/03/19. She states that the toe became more red, oozing a large amount of clear drainage and was edematous. She saw Dr. Faust in the office yesterday, and she was noted to have purulent drainage from the incision in addition to increased pain in her foot, and she was sent as a direct admission to the hospital for a right foot incision and drainage and removal of her hardware. Initial cultures from the operating room with 1+ epithelial cells, 1+ neutrophils, 1+ gram-positive cocci that is PCR positive for Staph aureus and MRSA negative. Labs in the hospital yesterday show no leukocytosis. She denies fever, chills. She states overall she is feeling well. Today, postoperatively, she is having significant pain in the right foot. She has been unable to sleep due to this. Additionally, she has been experiencing nausea. She denies any urinary symptoms, recent travel, vomiting, diarrhea. PAST MEDICAL HISTORY: 1. Depression. 2. Cyclic nausea/vomiting. 3. Pancreatitis. 4. Migraines. 5. Right 1st toe osteomyelitis. PAST SURGICAL HISTORY: 1. Status post right bunionectomy with hardware on 12/10/18. 2. Status post excision of hardware, incision and debridement on 01/14/19. 3. Status post debridement of the right first MTP on 02/03/19. 4. Status post cement spacer placement, incision and drainage of the first MTP and closure of the wound on 02/07/19. 5. Status post excision of cement spacer and right first MTP reconstruction with iliac crest graft on 03/14/19. 6. Status post incision and debridement with excision of hardware and bone graft on 05/03/19. 7. Status post cholecystectomy in 1999. 8. Status post tubal ligation. MEDICATIONS: Home medications: 1. Bupropion 300 mg by mouth every morning. 2. Omeprazole 20 mg by mouth every morning. 3. Multivitamin 1 tablet by mouth daily. 4. Lactobacillus 1 tablet by mouth every morning. Hospital medications: 1. Acetaminophen 975 mg by mouth every 8 hours. 2. Aspirin 325 mg by mouth daily. 3. Dulcolax suppository 10 mg per rectum daily as needed for constipation. 4. Bupropion 300 mg by mouth daily. 5. Cefazolin 1 g IV every 8 hours. 6. Flexeril 10 mg by mouth every 6 hours as needed for muscle spasms. 7. Benadryl 25 mg IV or p.o. every 6 hours as needed for itching. 8. Colace 100 mg by mouth twice daily. 9. Gabapentin 300 mg by mouth twice daily. 10. Ketorolac 30 mg IV every 6 hours as needed for pain. 11. Lactated Ringer's 100 mL an hour intravenously. 12. Lactobacillus 1 tablet by mouth daily. 13. Lactulose 30 mL by mouth twice daily as needed for constipation. 14. Milk of magnesia 30 mL by mouth twice daily until BM, followed by 30 mL by mouth every 6 hours as needed for constipation. 15. Morphine sulfate 2 mg IV every 4 hours as needed for pain. 16. Zofran 4 mg IV or p.o. every 6 hours as needed for nausea. 17. Oxycodone 10 mg by mouth every 4 hours as needed for pain. 18. Percocet 5/325 one to two tablets by mouth every 4 hours as needed for pain. 19. Pantoprazole 40 mg by mouth every morning. 20. MiraLAX 17 g by mouth daily as needed for constipation. 21. Scopolamine 1.5 mg patch transdermal every 72 hours. 22. Tramadol 50 mg by mouth every 6 hours as needed for pain. 23. Trazodone 25 mg by mouth at bedtime as needed for sleep. ALLERGIES: No known drug allergies. FAMILY HISTORY: Denies family history of recurrent or resistant infections. No family history of coronary artery disease. Father with a history of diabetes mellitus and bladder cancer. Mother with a history of rheumatoid arthritis and passed due to complications secondary to bradycardia. SOCIAL HISTORY: Denies alcohol or recreational drug use. She is a former smoker, quitting in 2013. Prior to that, she had a 14-pack year smoking history. REVIEW OF SYSTEMS: I performed a 10-point review of systems. All the pertinent positives and negatives are mentioned in the history of present illness. The remaining review of systems are negative. PHYSICAL EXAM: Vital Signs: Temperature 98.2, heart rate 91, respiratory rate 16, O2 sat 98% on room air, blood pressure 135/76. General Appearance: She is alert, appears to be in no acute distress. Head: Normocephalic, atraumatic. EENT: Extraocular movements are intact. No subconjunctival hemorrhage. Moist mucous membranes. Neck: Supple. No lymphadenopathy. Neurologic: Alert and oriented. Cranial nerves II through XII are grossly intact. She moves all extremities. Cardiovascular: Regular rate and rhythm. S1 and S2 present. No murmurs, rubs, or gallops heard. Respiratory: No accessory muscle use. The lungs are clear to auscultation bilaterally. Abdomen: Bowel sounds present. Abdomen is soft, nontender, nondistended. Extremities: No lower extremity edema. DP and PT pulses are 2+ and symmetric. Musculoskeletal: No clubbing or cyanosis noted. The patient exhibits good strength in all extremities. Psychological: Calm and cooperative. Skin: There are no rashes or abnormalities seen on the exposed skin. She has a surgical dressing in place on the right lower extremity that is clean, dry, and intact. DIAGNOSTIC STUDIES/LAB DATA: From today: White blood cell count 10.4, hemoglobin 15.3, hematocrit 45, platelet count 237. Sodium 138, potassium 3.7, chloride 106, CO2 24, BUN 8, creatinine 0.61, glucose 124. Please see impression and recommendations outlined above. Recommendations have been discussed with ALTHEA Yousif. Thank you for asking us to see Ms. Gu in consultation. The case has been reviewed with my attending Dr. Baron Galan, who agrees with the plan of care. Reviewed by ROGER SOLO, SOFÍA 05/07/19 1305 [id number]/[facility] #: [id number] MTDD
[2019-05-04] MEDS ORDERED: Vancomycin Trough Check NOTE FOLLOW UP ONE (15:30)
[2019-05-04] MEDS ORDERED: ceFAZolin VIAL(*) 2 GM in NS 0.9% 100 ML* 100 ML IVPB SCH (17:00)
[2019-05-04] MEDS: ceFAZolin* 2 GM* Q8H (Duplex) IVPB SCH (17:49)
[2019-05-05] MEDS: Lactated Ringers 1000 ML Bag* 1,000 ML IV SCH (00:35)
[2019-05-05] MEDS: ceFAZolin* 2 GM* Q8H (Duplex) IVPB SCH ×3 (00:36→17:01)
[2019-05-05] MEDS: Acetaminophen TAB* 325 MG PO SCH ×3 (06:10→20:50)
[2019-05-05 07:23] LABS: BUN/Creatinine Ratio 11.5 (8-20); Calcium 8.6 mg/dL (8.6-10.3); EGFR African American 124.6 (>60); Potassium 3.5 mmol/L (3.5-5.0)
[2019-05-05] MEDS: Ketorolac INJ* 30 MG/ML 1 ML VIAL IV PUSH PRN ×3 (07:41→21:06)
[2019-05-05] MEDS: BuPROPion XL* 300 MG TAB.XL PO SCH (09:19)
[2019-05-05] MEDS: Pantoprazole TAB * 40 MG TAB PO SCH (09:19)
[2019-05-05] MEDS: Lactobacillus Acidophilus* 1 TAB PO SCH (09:19)
[2019-05-05] MEDS: Aspirin TAB* 325 MG PO SCH (09:19)
[2019-05-05] MEDS: Docusate CAP* 100 MG PO SCH ×2 (09:20→20:04)
[2019-05-05] MEDS: Gabapentin CAP(*) 300 MG PO SCH ×2 (09:20→20:04)
[2019-05-05] MEDS: Magnesium Hydroxide LIQ* 30 ML UDC PO SCH ×2 (09:22→20:04)
--- NOTE | 2019-05-05 11:10 | PN ---
Progress Note - Progress Note Date of Service: 05/05/19 SOAP: Subjective: CC: foot infection HPI: 53 year old with right MTP infection treated with reconstruction, had 6 weeks IV then PO antibiotics, subsequently the prior incision opened up. Had hardware removed yesterday. Culture growing MSSA. Objective: Vital Signs Temp 36.7 C 05/05/19 07:29 Pulse 79 05/05/19 07:29 Resp 16 05/05/19 09:20 BP 131/70 05/05/19 07:29 Pulse Ox 98 05/05/19 07:29 Intake & Output 05/04/19 05/05/19 05/05/19 18:59 06:59 18:59 Intake Total 1595 1845 Output Total 1900 1100 Balance -305 745 Intake: IV Fluids 981 1045 ABX - CEFAZOLIN 55 LR 981 990 IVPB 54 ABX - CEFAZOLIN 54 Oral 560 800 Output: Urine 1800 1100 Emesis 100 Gen:awake, no distress HEENT: no thrush Heart:Regular, no murmur Lungs:CTA BL Abd:+BS NTND soft Skin: no rash MSK: right foot wrapped Laboratory Results - last 24 hr 05/04/19 05/04/19 05/05/19 10:51 10:51 06:49 WBC 10.4 RBC 4.95 H Hgb 15.3 Hct 45 MCV 90 MCH 31 MCHC 34 RDW 14 Plt Count 237 MPV 8.1 Neut % (Auto) 90.1 Lymph % (Auto) 3.8 [place] % (Auto) 5.2 Eos % (Auto) 0.8 Baso % (Auto) 0.1 Absolute Neuts (auto) 9.4 H Absolute Lymphs (auto) 0.4 L Absolute Monos (auto) 0.5 Absolute Eos (auto) 0.1 Absolute Basos (auto) 0.0 Absolute Nucleated RBC 0.0 Nucleated RBC % 0.0 Sodium 138 140 Potassium 3.7 3.5 Chloride 106 107 Carbon Dioxide 24 27 Anion Gap 8 6 BUN 8 7 Creatinine 0.61 0.61 Est GFR ( Amer) 124.6 124.6 Est GFR (Non-Af Amer) 103.0 103.0 BUN/Creatinine Ratio 13.1 11.5 Glucose 124 H 95 Calcium 9.0 8.6 C-Reactive Protein 40.45 H Microbiology 05/03/19 17:00 Anaerobic Culture - Preliminary Wound 05/03/19 17:00 Skin and Soft Tissue MRSA/MSSA (PCR - Final Foot Right Mrsa Negative S.aureus Positive Gram Stain - Final Wound Culture - Final Staphylococcus Aureus Assessment: 1. 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 continue ancef, prefer 6-8 weeks of treatment, she does not have insurance coverage, will check on a enciso stone.
--- NOTE | 2019-05-05 12:40 | PN ---
Progress Note - Progress Note Date of Service: 05/05/19 SOAP: Subjective: []Pt seen and examined at bedside with Dr Faust. Her pain control is much improved today. Denies CP, SOB, dizziness, nausea. Objective: []Gen: NAD, appears well. RLE: Dressing changed, incision starting to heal mild serous drainage distally without purulence and no erythema surrounding Calves supple and nontender without erythema, edema or palpable cords Assessment: []PRE-OP DIAGNOSIS: Recurrent sepsis, right first metatarsophalangeal joint reconstruction. OPERATIVE PROCEDURE: Debridement right first metatarsophalangeal joint with hardware and bone removal. Plan: []NWB RLE, OOB and ambulate with walker Cont IV abx per ID. Cultures + MSSA, on cefazolin. Follow cultures Cont toradol 30 mg IV q 6 prn and gabapentin 300 mg po q 12 prn Needs dressing change every few days for wound check while in the hospital. Needs to see Dr Faust next week Okay for DC from ortho standpoint no surgery planned during this hospital stay, though CM working to set up IV abx Vital Signs Temp 97.6 F 05/05/19 11:19 Pulse 71 05/05/19 11:19 Resp 18 05/05/19 12:12 BP 126/77 05/05/19 11:19 Pulse Ox 97 05/05/19 11:19 Intake & Output 05/04/19 05/05/19 05/05/19 18:59 06:59 18:59 Intake Total 1595 1845 1030 Output Total 1900 1100 Balance -251 419 3527 Intake: IV Fluids 981 1045 980 ABX - CEFAZOLIN 55 LR 981 990 980 IVPB 54 50 ABX - CEFAZOLIN 54 50 Oral 560 800 Output: Urine 1800 1100 Emesis 100 Laboratory Last Values WBC 10.4 10^3/uL (3.5-10.8) 05/04/19 10:51 RBC 4.95 10^6 /uL (3.70-4.87) H 05/04/19 10:51 Hgb 15.3 g/dL (12.0-16.0) 05/04/19 10:51 Hct 45 % (35-47) 05/04/19 10:51 MCV 90 fL (80-97) 05/04/19 10:51 MCH 31 pg (27-31) 05/04/19 10:51 MCHC 34 g/dL (31-36) 05/04/19 10:51 RDW 14 % (10-15) 05/04/19 10:51 Plt Count 237 10^3/uL (150-450) 05/04/19 10:51 MPV 8.1 fL (7.4-10.4) 05/04/19 10:51 Neut % (Auto) 90.1 % 05/04/19 10:51 Lymph % (Auto) 3.8 % 05/04/19 10:51 [place] % (Auto) 5.2 % 05/04/19 10:51 Eos % (Auto) 0.8 % 05/04/19 10:51 Baso % (Auto) 0.1 % 05/04/19 10:51 Absolute Neuts (auto) 9.4 10^3/ul (1.5-7.7) H 05/04/19 10:51 Absolute Lymphs (auto) 0.4 10^3/ul (1.0-4.8) L 05/04/19 10:51 Absolute Monos (auto) 0.5 10^3/ul (0-0.8) 05/04/19 10:51 Absolute Eos (auto) 0.1 10^3/ul (0-0.6) 05/04/19 10:51 Absolute Basos (auto) 0.0 10^3/ul (0-0.2) 05/04/19 10:51 Absolute Nucleated RBC 0.0 10^3/ul 05/04/19 10:51 Nucleated RBC % 0.0 05/04/19 10:51 Sodium 140 mmol/L (135-145) 05/05/19 06:49 Potassium 3.5 mmol/L (3.5-5.0) 05/05/19 06:49 Chloride 107 mmol/L (101-111) 05/05/19 06:49 Carbon Dioxide 27 mmol/L (22-32) 05/05/19 06:49 Anion Gap 6 mmol/L (2-11) 05/05/19 06:49 BUN 7 mg/dL (6-24) 05/05/19 06:49 Creatinine 0.61 mg/dL (0.51-0.95) 05/05/19 06:49 Est GFR ( Amer) 124.6 (>60) 05/05/19 06:49 Est GFR (Non-Af Amer) 103.0 (>60) 05/05/19 06:49 BUN/Creatinine Ratio 11.5 (8-20) 05/05/19 06:49 Glucose 95 mg/dL (70-100) 05/05/19 06:49 Calcium 8.6 mg/dL (8.6-10.3) 05/05/19 06:49 C-Reactive Protein 40.45 mg/L (<8.01) H 05/04/19 10:51
[2019-05-06] MEDS: traZODone TAB* 50 MG TAB PO PRN ×2 (00:31→01:31)
[2019-05-06] MEDS: ceFAZolin* 2 GM* Q8H (Duplex) IVPB SCH ×2 (00:32→10:11)
[2019-05-06] MEDS: Ketorolac INJ* 30 MG/ML 1 ML VIAL IV PUSH PRN (04:12)
[2019-05-06] MEDS: Acetaminophen TAB* 325 MG PO SCH (06:24)
[2019-05-06] MEDS: Magnesium Hydroxide LIQ* 30 ML UDC PO SCH (08:28)
[2019-05-06] MEDS: Aspirin TAB* 325 MG PO SCH (08:33)
[2019-05-06] MEDS: Docusate CAP* 100 MG PO SCH (08:33)
[2019-05-06] MEDS: Pantoprazole TAB * 40 MG TAB PO SCH (08:34)
[2019-05-06] MEDS: Lactobacillus Acidophilus* 1 TAB PO SCH (08:34)
[2019-05-06] MEDS: BuPROPion XL* 300 MG TAB.XL PO SCH (08:34)
[2019-05-06] MEDS: Gabapentin CAP(*) 300 MG PO SCH (08:34)
--- NOTE | 2019-05-06 09:27 | PN ---
Progress Note - Progress Note Date of Service: 05/06/19 SOAP: Subjective: CC: Right foot infection HPI: Ms. Gu is a 53 yo female with PMH significant for depression, cyclic N/V, hx pancreatitis, and migraines; who presented with right MTP infection treated with reconstruction, had 6 weeks IV then PO antibiotics, subsequently the prior incision opened up. Denies fever, chills, nausea, vomiting, or diarrhea. She reports that her pain is better controlled with the addition of gabapentin. Objective: Vital Signs - 8 hr 05/06/19 05/06/19 05/06/19 04:06 07:28 08:34 Temperature 98.2 F 97.7 F Pulse Rate 71 71 Respiratory 16 16 18 Rate Blood Pressure 132/55 122/69 (mmHg) O2 Sat by Pulse 99 98 Oximetry Physical Exam: General: NAD, sitting up in bed Neurological: Alert and Oriented x4 HEENT: Moist MM, no thrush Cardiovascular: Heart rate regular Respiratory: Lung sounds Abdominal: Bowel sounds present; ABD soft, non tender and non distended MSK: JERNIGAN Skin: No rash. ZOE wrap to right foot clean, dry and intact. No extending erythema Laboratory Last Values WBC 10.4 10^3/uL (3.5-10.8) 05/04/19 10:51 RBC 4.95 10^6 /uL (3.70-4.87) H 05/04/19 10:51 Hgb 15.3 g/dL (12.0-16.0) 05/04/19 10:51 Hct 45 % (35-47) 05/04/19 10:51 MCV 90 fL (80-97) 05/04/19 10:51 MCH 31 pg (27-31) 05/04/19 10:51 MCHC 34 g/dL (31-36) 05/04/19 10:51 RDW 14 % (10-15) 05/04/19 10:51 Plt Count 237 10^3/uL (150-450) 05/04/19 10:51 MPV 8.1 fL (7.4-10.4) 05/04/19 10:51 Neut % (Auto) 90.1 % 05/04/19 10:51 Lymph % (Auto) 3.8 % 05/04/19 10:51 [place] % (Auto) 5.2 % 05/04/19 10:51 Eos % (Auto) 0.8 % 05/04/19 10:51 Baso % (Auto) 0.1 % 05/04/19 10:51 Absolute Neuts (auto) 9.4 10^3/ul (1.5-7.7) H 05/04/19 10:51 Absolute Lymphs (auto) 0.4 10^3/ul (1.0-4.8) L 05/04/19 10:51 Absolute Monos (auto) 0.5 10^3/ul (0-0.8) 05/04/19 10:51 Absolute Eos (auto) 0.1 10^3/ul (0-0.6) 05/04/19 10:51 Absolute Basos (auto) 0.0 10^3/ul (0-0.2) 05/04/19 10:51 Absolute Nucleated RBC 0.0 10^3/ul 05/04/19 10:51 Nucleated RBC % 0.0 05/04/19 10:51 Sodium 140 mmol/L (135-145) 05/05/19 06:49 Potassium 3.5 mmol/L (3.5-5.0) 05/05/19 06:49 Chloride 107 mmol/L (101-111) 05/05/19 06:49 Carbon Dioxide 27 mmol/L (22-32) 05/05/19 06:49 Anion Gap 6 mmol/L (2-11) 05/05/19 06:49 BUN 7 mg/dL (6-24) 05/05/19 06:49 Creatinine 0.61 mg/dL (0.51-0.95) 05/05/19 06:49 Est GFR ( Amer) 124.6 (>60) 05/05/19 06:49 Est GFR (Non-Af Amer) 103.0 (>60) 05/05/19 06:49 BUN/Creatinine Ratio 11.5 (8-20) 05/05/19 06:49 Glucose 95 mg/dL (70-100) 05/05/19 06:49 Calcium 8.6 mg/dL (8.6-10.3) 05/05/19 06:49 C-Reactive Protein 40.45 mg/L (<8.01) H 01/15/20 10:51 Assessment: 1. Right foot infection, acute osteomyelitis. S/P I+D and removal of hardware, POD #3. Wound culture with MSSA. Afebrile and no leukocytosis. Elevated CRP. Plan: Continue Ancef 2gm IV Q8H, day 4/56. She will transition to continuous Ancef at discharge (6gm daily). Weekly labs while on ABX: CBC, CMP and CRP. She should followup with us outpatient in 2-3 weeks or sooner if she has any concerns. 25 minutes floor time: > 50% spent with the patient discussing rodent exterminator course of IV ABX, followup, and when to call the office (fever, rash, diarrhea, other concerns).
--- NOTE | 2019-05-06 10:59 | DS ---
Orthopedic Discharge Summary - Discharge Summary Date of Admission:05/03/19 Date of Discharge: 05/06/2019 Date of Surgery: 05/03/2019 Attending Orthopedic Provider: Dr. Faust Pre-operative Diagnosis: Recurrent sepsis, right first metatarsophalangeal joint reconstruction. Operative Procedure: Debridement right first metatarsophalangeal joint with hardware and bone removal. Disposition of Patient: Home Condition of Patient: Good History: AMEYA RODRIGUEZ is a 53 year female who has had recurrent sepsis of her right first metatarsophalangeal joint following a reconstruction. She elected to proceed with a debridement and hardware and bone removal. Hospital Course: AMEYA was admitted to [facility] on 05/03/19. Patient underwent a Debridement right first metatarsophalangeal joint with hardware and bone removal without complication followed by a brief recovery in PACU and transfer to the Short Stay Surgical Unit in stable condition. Our infectious disease, physical therapy and occupational therapy also participated in this patients care. Post-op day 1: patient was alert and in no acute distress. Dressing was clean, dry and intact. Operative extremity dorsiflexion and plantarflexion intact, sensation intact to light touch distally, DP2+. She did not have good pain relief with narcotics and so was placed on Toradol and Gabapentin with good effect. Post-op day two: dressing was changed, incision was clean, dry and intact. POD 3 Patient was deemed to be medically and orthopedically stable for discharge. A plan for antibiotic therapy was put in place by ID. Physical therapy goals were met. Home Medications Medication Instructions Recorded Confirmed Type Multivitamins/Minerals TAB* 1 tab PO QAM 03/19/15 05/03/19 History [Theragran/minerals TAB*] Omeprazole CAP (NF) [Prilosec CAP* 20 mg PO QAM 03/19/15 05/03/19 History 20 MG] Lactobacillus Acidophilus* 1 tab PO QAM 03/08/19 05/03/19 History BuPROPion XL* [Bupropion XL*] 300 mg PO QAM #0 03/16/19 05/03/19 Rx Discharge Instructions following Orthopedic Surgery: Activity: * Non Weight Bearing post op shoe Wound care: * OK to shower on post-op day 3, no bathing, swimming, or submerging wound. * Keep dressing covered with bag. Call Orthopedic office for: * Increased drainage * Redness * Increased pain * Fever Go to ER with shortness of breath or chest pain. Diet: * Regular diet * Increase fluids and fiber to prevent constipation. * Continue to use stool softeners, call office if no bowel motion within 48 hours. Medications See Home Medication List in your packet for medications that you should take after discharge. DVT Prophylaxis: Aspirin Dosin mg twice a day Pain Control: Ketorolac 10 mg, Take 1 tab every 6 hours as needed for pain Gabapentin 300 mg, take 1 tab every 12 hours as needed for pain FOLLOW UP: Follow up with [Govind] on or , call for appointment Please call our office with any questions or concerns ([phone]) Follow up with Infectious disease within 2 - 3 weeks. Continue continuous Ancef at discharge (6gm daily). Weekly labs while on ABX: CBC, CMP and CRP.
[2019-05-06 11:24] VITALS: BP 130/77
== END 2019-05-06 12:10 | disposition home health service (06) | DRG 496 ==
LOC: OR 11:16 → SSU 14:25
PROVIDERS: ADMIT Orthopaedic Surgery; ATTEND Orthopaedic Surgery
PROC: 0QBN0ZZ Excision of Right Metatarsal, Open Approach (ICD-10-PCS; 2019-05-03)
PROC: 0QPN04Z Removal of Internal Fixation Device from Right Metatarsal, Open Approach (ICD-10-PCS; principal; 2019-05-03 12:45)
PROC: 05HY33Z Insertion of Infusion Device into Upper Vein, Percutaneous Approach (ICD-10-PCS; 2019-05-06)
DX: T84.69XA Infection and inflammatory reaction due to internal fixation device of other site, initial encounter (principal); M86.171 Other acute osteomyelitis, right ankle and foot; M00.071 Staphylococcal arthritis, right ankle and foot; T81.32XA Disruption of internal operation (surgical) wound, not elsewhere classified, initial encounter; B95.61 Methicillin susceptible Staphylococcus aureus infection as the cause of diseases classified elsewhere; F32.9 Major depressive disorder, single episode, unspecified; G43.A0 Cyclical vomiting, in migraine, not intractable; X58.XXXA Exposure to other specified factors, initial encounter; Z79.899 Other long term (current) drug therapy; Z83.3 Family history of diabetes mellitus; Z82.61 Family history of arthritis; Z80.52 Family history of malignant neoplasm of bladder; Z87.891 Personal history of nicotine dependence; Z79.82 Long term (current) use of aspirin
CPT/HCPCS: 36415; 80048; 85025; 86140; 87040; 87070; 87073; 87077; 87186; 87205; 87640; 87641; 88300; 88304; 88311; A9270-GY; J0690; J0780; J1885; J2001; J2250; J2270; J2405; J2704; J3010; J3370; J3490

== ENCOUNTER 2019-05-26 13:59 | Inpatient (IN) | payer BC ==
[~2019-05-26 13:59] MED LIST changes: +ceFAZolin* 2 GM* ONE DOSE (Duplex) IVPB
[2019-05-26] MEDS ORDERED: fentaNYL* 50 MCG/ML 2 ML VIAL (100 MCG VIAL) ONE (14:05)
[2019-05-26] MEDS ORDERED: Midazolam* 1 MG/ML 2 ML VIAL (2 MG) ONE ×3 (14:05→15:51)
[2019-05-26] MEDS ORDERED: HYDROcodone/ACETAMIN 5-325 MG* 1 TAB PO PRN (14:44)
[2019-05-26] MEDS ORDERED: Naloxone* 0.4 MG/ML 1 ML VIAL IV PRN (14:44)
[2019-05-26] MEDS ORDERED: Bupivacaine 0.5%* 50 ML MDV VIAL ONE (14:49)
[2019-05-26] MEDS ORDERED: Lidocaine 2% PF* 10 ML AMP ONE (14:49)
[2019-05-26] MEDS ORDERED: Buffered Lidocaine 1% SYRIN* 1 ML/SYRINGE INTRADERM ONE (14:52)
[2019-05-26] MEDS ORDERED: ceFAZolin 2 GM PREMIX in ORs 2 GM/50 ML BAG ONE (14:59)
[2019-05-26] MEDS ORDERED: Lidocaine 2% PF * 5 ML VIAL ONE ×2 (15:17→15:21)
[2019-05-26] MEDS ORDERED: Propofol* 10 MG/ML 20 ML BTL ONE ×2 (15:17→15:18)
[2019-05-26] MEDS ORDERED: KETAMINE HCL* 50 MG/ML 10 ML VIAL ONE (15:19)
[2019-05-26] MEDS ORDERED: Labetalol IV* 5 MG/ML 20 ML VIAL ONE (16:28)
[2019-05-26] MEDS ORDERED: diPHENhydraMINE IV* 50 MG/ML 1 ml VIAL (BENADRYL) IV PRN (16:29)
[2019-05-26] MEDS ORDERED: diPHENhydraMINE PO* 25 MG PO PRN (16:29)
[2019-05-26] MEDS ORDERED: Magnesium Hydroxide LIQ* 30 ML UDC PO PRN (16:29)
[2019-05-26] MEDS ORDERED: oxyCODONE/Acetamin 5/325 MG* TAB PO PRN (16:29)
[2019-05-26] MEDS ORDERED: Ondansetron INJ* 2 MG/ML VIAL IV PRN (16:29)
[2019-05-26] MEDS: Labetalol IV* 5 MG/ML 20 ML VIAL IV PRN ×2 (16:30→16:40)
[2019-05-26] MEDS: HYDROmorphone INJ1* 1 MG/ML SYRINGE IV PRN ×2 (16:50→17:02)
[2019-05-26] MEDS ORDERED: HYDROmorphone INJ1* 1 MG/ML SYRINGE ONE (16:56)
[2019-05-26] MEDS ORDERED: Labetalol IV* 5 MG/ML 20 ML VIAL IV PRN (17:00)
[2019-05-26] MEDS ORDERED: hydrALAZINE IV* 20 MG/ML VIAL ONE (17:17)
[2019-05-26] MEDS ORDERED: Morphine 4 MG/ML VIAL (1 ml) 4 MG/ML VIAL ONE (17:22)
[2019-05-26] MEDS: Morphine INJ* 2 MG/ML 1 ML SYRINGE (TWO MG - NEW SYRINGE VERSION) IV PRN ×2 (17:24→21:15)
[2019-05-26] MEDS ORDERED: hydrALAZINE IV* 20 MG/ML VIAL IV SLOW PU PRN (17:50)
[2019-05-26] MEDS ORDERED: traMADol TAB* 50 MG ONE (18:04)
[2019-05-26] MEDS: traMADol TAB* 50 MG PO PRN (18:05)
[2019-05-26] MEDS ORDERED: Ondansetron INJ* 2 MG/ML VIAL ONE (18:14)
[2019-05-26] MEDS: Cyclobenzaprine TAB* 10 MG PO PRN (20:04)
[2019-05-26] MEDS: Aspirin TAB* 325 MG PO SCH (20:04)
[2019-05-26 20:05] LABS: Hematocrit 38 % (35-47); Hemoglobin 12.8 g/dL (12.0-16.0); Mean Corpuscular HGB Conc 34 g/dL (31-36); Mean Corpuscular Hemoglobin 30 pg (27-31); Mean Corpuscular Volume 89 fL (80-97); Mean Platelet Volume 8.5 fL (7.4-10.4); Platelet Count 265 10^3/uL (150-450); Red Blood Count 4.26 10^6 /uL (3.70-4.87); Red Cell Distribution Width 14 % (10-15); White Blood Count 12.3 10^3/uL (3.5-10.8)
[2019-05-26 20:20] LABS: ALT 8 U/L (7-52); AST 22 U/L (13-39); Albumin 3.8 g/dL (3.2-5.2); Albumin/Globulin Ratio 1.7 (1-3); Alkaline Phosphatase 77 U/L (34-104); Anion Gap 6 mmol/L (2-11); BUN/Creatinine Ratio 20.3 (8-20); Blood Urea Nitrogen 14 mg/dL (6-24); C Reactive Protein < 1.00 mg/L (<8.01); CO2 Carbon Dioxide 27 mmol/L (22-32); Calcium 8.7 mg/dL (8.6-10.3); Chloride 105 mmol/L (101-111); EGFR African American 108.1 (>60); EGFR Non-African American 89.3 (>60); Globulin 2.3 g/dL (2-4); Glucose 134 mg/dL (70-100); Potassium 3.4 mmol/L (3.5-5.0); Sodium 138 mmol/L (135-145); Total Protein 6.1 g/dL (6.4-8.9)
[2019-05-26] MEDS ORDERED: PROCHLORPERAZINE INJ 5 MG/ML 2 ML VIAL IV PRN (20:45)
[2019-05-26] MEDS ORDERED: Gabapentin CAP(*) 300 MG PO ONE (20:45)
[2019-05-26] MEDS ORDERED: Potassium Chlor TAB* 20 MEQ TAB.ER PO ONE (21:46)
[2019-05-26] MEDS: Acetaminophen TAB* 325 MG PO SCH (21:59)
[2019-05-26] MEDS ORDERED: Scopolamine 1.5 mg* PATCH TRANSDERM PRN (22:00)
[2019-05-26] MEDS: Docusate CAP* 100 MG PO SCH (22:00)
[2019-05-26] MEDS: Magnesium Hydroxide LIQ* 30 ML UDC PO SCH (22:00)
[2019-05-26 22:06] LABS: Magnesium 1.4 mg/dL (1.9-2.7)
[2019-05-26 22:07] LABS: Erythrocyte Sed Rate 5 mm/Hr (0-29)
--- NOTE | 2019-05-26 22:45 | CONS ---
CONSULTATION REPORT: DATE OF CONSULT: 05/26/19 REQUESTING PROVIDER: Dr. Workman and Dr. Faust REASON FOR CONSULT: Blood pressure management. HISTORY OF PRESENT ILLNESS: This is a 53-year-old female with a past medical history significant for GERD, who HISTORY OF PRESENT ILLNESS: This is a 53-year-old female with a past medical history significant for GERD, who was admitted on 05/26/19 status post an elective right foot incision and debridement due to a nonhealing ulcer and had a wound VAC placement. She has had 6 previous surgeries on her foot for similar issues. Hospitalists were asked to consult with the patient due to elevated blood pressures noted in the postoperative period. Blood pressures have been 140s to 150s systolically. The patient states that normally she is not on any medications to control her blood pressure. Earlier in the day when she had seen Dr. Galan, her blood pressure at that point according to her was 130s/80s and states that is generally where her blood pressure is. There was a concern from nursing that her blood pressure had been 150s/low 100s initially after coming out of the surgery, though, however it seems like this is due to pain. PAST MEDICAL HISTORY: GERD. PAST SURGICAL HISTORY: Cholecystectomy, tubal ligation, x3, right foot surgery x6. HOME MEDICATIONS: 1. Multivitamin 1 tab p.o. daily. 2. Lactobacillus 1 tab p.o. daily. 3. Bupropion XL 300 mg p.o. daily. 4. Omeprazole 20 mg p.o. daily. ALLERGIES: No known drug allergies. FAMILY HISTORY: Significant for diabetes and bladder cancer. SOCIAL HISTORY: She quit smoking 5 years prior. Has had 3 alcoholic drinks in the past 6 months. Denies any recreational substance use. 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 REVIEW OF SYSTEMS: A 12-point system review was performed, which was positive for right foot burning and throbbing, is also positive for a headache, is negative for fever, chills, lightheadedness, dizziness, chest pain, shortness of breath, palpitations, abdominal pain, nausea, vomiting, or issues moving her bowels or bladder. PHYSICAL EXAM: Vital Signs: Temperature 97.5 Fahrenheit, 79 pulse, 18 resps, 100% oxygen on room air, 143/90 blood pressure. General: This is a well- developed woman seen sitting up in bed, in no acute distress noted. HEENT: Conjunctivae pink and moist. PERRLA. EOMs intact. Oropharynx is clear. Mucous membranes moist. Cardiac: S1, S2 present. Heart rate regular. No murmurs, gallops, or rubs appreciated. Respiratory: Lung sounds clear throughout bilaterally on room air. Abdomen: Soft, nontender, nondistended with positive bowel sounds x4. Musculoskeletal: Limited range of motion to right ankle due to cast placement, though has 2+ positive popliteal pulse. Cap refill less than 3 seconds. Able to move all toes. Neurologic: Sensation intact to light touch. No focal deficits appreciated. Skin: Heraclio wrapped, splint to the right foot with wound VAC suctioning at 125 mmHg, draining dark sanguineous fluid. Psych: She is alert and oriented x3. Thought content organized. DIAGNOSTIC STUDIES/LAB DATA: Diagnostic studies: None. Pertinent lab data: WBC 12.3, potassium 3.4, magnesium 1.4, glucose 134, BUN/ creatinine ratio 20.3, total protein 6.1. ASSESSMENT AND PLAN: My impression is that this is a 53-year-old female with a past medical history significant for gastroesophageal reflux disease, who is admitted on 05/26/19 status post a right foot incision and debridement. Hospitalists were asked to consult for blood pressure management. 1. Right foot incision and debridement. Pain management and bowel management as per Ortho; however, the patient stated that she does not react well to oxycodone and the tramadol is okay, but because she can have it only every 6 hours, it is not enough to control her pain. She states that her pain is more burning nerve pain that she is accustomed to after these types of surgeries and has done well with gabapentin in the past. I gave her a one-time dose tonight and ordered gabapentin 300 mg p.o. t.i.d. standing. She is to have physical therapy and occupational therapy as per Ortho and to be nonweightbearing to the right lower extremity with either walker or crutches. 2. Hypertension. Blood pressures postoperatively have been generally in the low 40s, as high as 158/109 when she was in pain and first coming out of surgery. At this point, she is not interested in starting any new medications. We will see how her blood pressure responds to better pain control and I suggested that she follow up with her primary care physician about this. 3. Electrolyte imbalances. Labs that were drawn postoperatively showed that her magnesium level is 1.4 and potassium was 3.4. I am repleting it with 4 g of IV magnesium and 40 mEq of p.o. potassium. At this point, she is asymptomatic. 4. Gastroesophageal reflux disease. She may continue her omeprazole. 5. DVT prophylaxis: She is to take an aspirin 325 mg p.o. daily per Ortho. 6. Code status is full code. 7. Disposition is to admit inpatient to short-stay surgical. Condition is fair. Thank you for allowing us to participate in the care of this patient. We will follow her during this admission. [id number]/[facility] #: [id number] Zoila Bautista NP Dictated Date/Time: 05/26/192218 Transcribed Date/Time 05/26/19 6281 MTDD
[2019-05-26] MEDS ORDERED: Magnesium Sulf 4 GM/100 ML IV* 4,000 MG/100 ML BAG IVPB ONE (23:00)
[2019-05-26] MEDS: ceFAZolin 1 GM ADVAN(*) 1 GM in NS 0.9% 50 ML* 50 ML IVPB SCH (23:37)
--- NOTE | 2019-05-26 23:45 | CONS ---
CONSULTATION REPORT: ADDENDUM: DATE OF CONSULT: 05/26/19 HISTORY OF PRESENT ILLNESS: This is a 53-year-old female with a past medical history significant for GERD who was admitted on 05/26/19 status post an elective right foot incision and debridement due to a nonhealing ulcer and had a wound VAC placement. She has had 6 previous surgeries on her foot for similar issues. Hospitalists were asked to consult with the patient due to elevated blood pressures noted in the postoperative period. Blood pressures have been 140s to 150s systolically. The patient states that normally she is not on any medications to control her blood pressure. Earlier in the day when she had seen Dr. Galan, her blood pressure at that point according to her was 130s/80s and states that is generally where her blood pressure is. There was a concern from nursing that her blood pressure had been 150s/low 100s initially after coming out of the surgery, though, however it seems like this is due to pain. PAST MEDICAL HISTORY: GERD. PAST SURGICAL HISTORY: Cholecystectomy, tubal ligation, x3, right foot surgery x6. HOME MEDICATIONS: 1. Multivitamin 1 tab p.o. daily. 2. Lactobacillus 1 tab p.o. daily. 3. Bupropion XL 300 mg p.o. daily. 4. Omeprazole 20 mg p.o. daily. ALLERGIES: No known drug allergies. FAMILY HISTORY: Significant for diabetes and bladder cancer. SOCIAL HISTORY: She quit smoking 5 years prior. Has had 3 alcoholic drinks in the past 6 months. Denies any recreational substance use. 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 REVIEW OF SYSTEMS: A 12-point system review was performed, which was positive for right foot burning and throbbing, is also positive for a headache, is negative for fever, chills, lightheadedness, dizziness, chest pain, shortness of breath, palpitations, abdominal pain, nausea, vomiting, or issues moving her bowels or bladder. PHYSICAL EXAM: Vital Signs: Temperature 97.5 Fahrenheit, 79 pulse, 18 resps, 100% oxygen on room air, 143/90 blood pressure. General: This is a well- developed woman seen sitting up in bed, in no acute distress noted. HEENT: Conjunctivae pink and moist. PERRLA. EOMs intact. Oropharynx is clear. Mucous membranes moist. Cardiac: S1, S2 present. Heart rate regular. No murmurs, gallops, or rubs appreciated. Respiratory: Lung sounds clear throughout bilaterally on room air. Abdomen: Soft, nontender, nondistended with positive bowel sounds x4. Musculoskeletal: Limited range of motion to right ankle due to cast placement, though has 2+ positive popliteal pulse. Cap refill less than 3 seconds. Able to move all toes. Neurologic: Sensation intact to light touch. No focal deficits appreciated. Skin: Heraclio wrapped, splint to the right foot with wound VAC suctioning at 125 mmHg, draining dark sanguineous fluid. Psych: She is alert and oriented x3. Thought content organized. DIAGNOSTIC STUDIES/LAB DATA: Diagnostic studies: None. Pertinent lab data: WBC 12.3, potassium 3.4, magnesium 1.4, glucose 134, BUN/ creatinine ratio 20.3, total protein 6.1. ASSESSMENT AND PLAN: My impression is that this is a 53-year-old female with a past medical history significant for gastroesophageal reflux disease, who is admitted on 05/26/19 status post a right foot incision and debridement. Hospitalists were asked to consult for blood pressure management. 1. Right foot incision and debridement. Pain management and bowel management as per Ortho; however, the patient stated that she does not react well to oxycodone and the tramadol is okay, but because she can have it only every 6 hours, it is not enough to control her pain. She states that her pain is more burning nerve pain that she is accustomed to after these types of surgeries and has done well with gabapentin in the past. I gave her a one-time dose tonight and ordered gabapentin 300 mg p.o. t.i.d. standing. She is to have physical therapy and occupational therapy as per Ortho and to be nonweightbearing to the right lower extremity with either walker or crutches. 2. Hypertension. Blood pressures postoperatively have been generally in the low 40s, as high as 158/109 when she was in pain and first coming out of surgery. At this point, she is not interested in starting any new medications. We will see how her blood pressure responds to better pain control and I suggested that she follow up with her primary care physician about this. 3. Electrolyte imbalances. Labs that were drawn postoperatively showed that her magnesium level is 1.4 and potassium was 3.4. I am repleting it with 4 g of IV magnesium and 40 mEq of p.o. potassium. At this point, she is asymptomatic. 4. Gastroesophageal reflux disease. She may continue her omeprazole. 5. DVT prophylaxis: She is to take an aspirin 325 mg p.o. daily per Ortho. 6. Code status is full code. 7. Disposition is to admit inpatient to short-stay surgical. Condition is fair. Thank you for allowing us to participate in the care of this patient. We will follow her during this admission. [id number]/[facility] #: [id number] MOSHE
[2019-05-27] MEDS ORDERED: DiMENhydriNATE IV* 50 MG/ML VIAL IV PUSH ONE (00:42)
--- NOTE | 2019-05-27 02:57 | OP ---
DATE OF OPERATION: 05/26/19 - ROOM #346 DATE OF : 67 ATTENDING SURGEON: Dr. Aubrey Faust. BLOOD OR BLOOD BANK TECHNICIAN: Kyler Meeks PA-C PRE-OP DIAGNOSIS: Recurrent infection, wound dehiscence right first metatarsal. POST-OP DIAGNOSIS: Recurrent infection, wound dehiscence right first metatarsal. OPERATIVE PROCEDURE: Irrigation and debridement, culture and sensitivity, pulse lavage, and VAC dressing. DESCRIPTION OF PROCEDURE: The patient was taken to the operating room where ankle block was provided. We opened up the dorsal wound of the metatarsal and proximal phalanx and scooped out some hematomatous looking material. Some of the edges were debrided of what appeared to be more narcotic material. Pulsatile lavage was performed with 3 L. Cultures were sent for aerobic and anaerobic, and then I fit a small VAC dressing to adapt to the gap in the first metatarsal and we connected this to continuous VAC suction. A splint was provided as well. The patient will be staying in the hospital. [id number]/[facility] #: [id number] [facility] SHORELuis
[2019-05-27] MEDS: traMADol TAB* 50 MG PO PRN ×3 (04:13→21:16)
[2019-05-27] MEDS: Acetaminophen TAB* 325 MG PO SCH ×3 (06:01→21:16)
[2019-05-27 06:14] LABS: ABS Eosinophils 0.1 10^3/ul (0-0.6); ABS Lymphocytes 0.9 10^3/ul (1.0-4.8); ABS Monocytes 0.6 10^3/ul (0-0.8); ABS Neutrophils 5.7 10^3/ul (1.5-7.7); Eosinophil % 0.9 %; Hematocrit 44 % (35-47); Hemoglobin 14.8 g/dL (12.0-16.0); Lymphocyte % 12.3 %; Mean Corpuscular HGB Conc 34 g/dL (31-36); Mean Corpuscular Hemoglobin 30 pg (27-31); Mean Corpuscular Volume 89 fL (80-97); Mean Platelet Volume 8.4 fL (7.4-10.4); Nucleated Red Blood Cells % 0.1; Platelet Count 269 10^3/uL (150-450); Red Blood Count 4.86 10^6 /uL (3.70-4.87); Red Cell Distribution Width 15 % (10-15); White Blood Count 7.3 10^3/uL (3.5-10.8)
[2019-05-27] MEDS: ceFAZolin 1 GM ADVAN(*) 1 GM in NS 0.9% 50 ML* 50 ML IVPB SCH (08:27)
[2019-05-27] MEDS: Gabapentin CAP(*) 300 MG PO SCH ×3 (08:28→21:16)
[2019-05-27] MEDS: Lactobacillus Acidophilus* 1 TAB PO SCH (08:28)
[2019-05-27] MEDS: BuPROPion XL* 300 MG TAB.XL PO SCH (08:28)
[2019-05-27] MEDS: Pantoprazole TAB * 40 MG TAB PO SCH (08:28)
[2019-05-27] MEDS: Aspirin TAB* 325 MG PO SCH (08:28)
[2019-05-27] MEDS: Docusate CAP* 100 MG PO SCH ×2 (08:28→21:16)
[2019-05-27] MEDS: Magnesium Hydroxide LIQ* 30 ML UDC PO SCH ×2 (08:29→21:15)
--- NOTE | 2019-05-27 10:35 | PN ---
Progress Note - Progress Note Date of Service: 05/27/19 SOAP: Subjective: [Pt was seen this morning. She is doing well. She has no complaints. Denies any chest pain, sob, nausea or vomiting. ] Objective: [General: A&O x3. NAD MSK, RLE: Dressing is c/d/i. Toes exposed, able to wiggle. NVI. ] Assessment: [Recurrent infection, wound dehiscence right first metatarsal. POD 1: Irrigation and debridement, culture and sensitivity, pulse lavage, and VAC dressing. Vital Signs Temp 98.5 F 05/27/19 08:04 Pulse 78 05/27/19 08:04 Resp 16 05/27/19 08:28 BP 143/87 05/27/19 08:04 Pulse Ox 100 05/27/19 08:04 Intake & Output 05/26/19 05/27/19 05/27/19 18:59 06:59 18:59 Intake Total 1380 1038 Output Total 65 1250 Balance 1315 -212 Weight 2.586 oz Intake: IV Fluids 300 LR 200 NS 100ML, Cefazolin 2G 100 IVPB 168 ABX - CEFAZOLIN 58 Magnesium 110 Oral 1080 870 Output: Urine 950 Emesis 300 Estimated Blood Loss 15 Autotransfusion Amount 50 Other: Estimated Blood Loss WOUND-VAC Comment ] Plan: [The pt will continue with abx Pain medication as needed prn VAC change by Dr. Faust on [place] ]
--- NOTE | 2019-05-27 14:54 | CONS ---
CONSULTATION REPORT: DATE OF CONSULT: 05/27/19 PRIMARY CARE PROVIDER: Dr. Aubrey Calderon. PROVIDER REQUESTING CONSULTATION: ALTHEA Christopher. CONSULTING SERVICE: Infectious Disease. PROVIDER: Roger Solo NP ATTENDING PROVIDER: Dr. Baron Galan.* (DICTATED BY ROGER SOLO, MAINTENANCE JOURNEYMAN-C) REASON FOR CONSULTATION: Right first toe acute osteomyelitis. IMPRESSION: Right first metatarsal acute osteomyelitis. The patient has had multiple surgical procedures on this foot since November 2018 including several debridements, bunionectomy, excision of hardware, cement spacer placement followed by reconstruction of the foot, then removal of hardware, most recently incision and drainage last night. She previously had cultures with Enterococcus faecalis, Stenotrophomonas, MRSA, and Staphylococcus aureus. The last cultures from her last procedure in April with Staphylococcus aureus. After her procedure in mid April, she was discharged on a 6-week course of Ancef, which she has been tolerating well outpatient. Unfortunately, the wound opened up again and she returned to the hospital for incision and debridement. Preliminary cultures from surgery yesterday with 4+ neutrophils, no organisms. She currently has no elevated CRP. She did have leukocytosis yesterday, but had been feeling unwell at home with some GI symptoms over the last couple of days, this since resolved and there was no gross signs of infection on exam yesterday when she was seen in my office outpatient. RECOMMENDATIONS/PLAN: Recommend continuing cefazolin at this time, I am going to increase the dose from 1 g to 2 g IV every 8 hours. We will await final cultures. If she does not have any new growth, we are going to continue cefazolin to complete her 8-week course that was previously planned. HISTORY OF PRESENT ILLNESS: Ms. Gu is a 53-year-old female with past medical history significant for depression, history of cyclic nausea and vomiting, pancreatitis, migraines, who initially underwent a right bunionectomy with hardware on 12/10/18. She developed postop infection, underwent excision of the hardware and debridement on 01/14/19. When she had surgery in December 2018, she had cultures with Enterococcus and Stenotrophomonas and was been discharged on a 6-week course of vancomycin for an osteomyelitis. Then followed with right first MTP debridement on 02/03/19 followed by placement of an antibiotic spacer and debridement and closure on 02/07/19. Cultures back in early December with Staph aureus, they later grew MRSA and Enterococcus. She underwent reconstruction of the foot on 03/14/19 with ilial crest bone graft placement. At that point, she was discharged on a 2-week course of oral linezolid which she completed and was doing well. When the wound broke opened in early April after showering, she came to the hospital as a direct admission after purulent drainage was noted from the incision. She was taken to the OR on 05/04/19. At that time, the cultures with Staph aureus. She was discharged on an 8-week course of Ancef for an acute osteomyelitis. Bone cultures returned with acute osteomyelitis from the procedure on 05/03/19 at which time she had all of the hardware removed. She was doing well with the exception of a nonhealing incision site that opened up further after the sutures were removed. Outpatient, she had been feeling well with the exception of a stomach bug on Thursday and Thursday of this week. She saw Dr. Faust as an outpatient on Thursday and he felt that she should return to the hospital for revision of this site. Postoperatively, she has been doing well. She is noted to have hypertension, which is a new diagnosis for her. She has been afebrile. She did have some initial leukocytosis yesterday that has resolved. She reports having a headache and feeling unwell yesterday evening, but states that that is all resolved today and she is feeling better. She denies any fevers, chills, nausea, vomiting, diarrhea, joint pain, or muscle pain. She continues to have what she describes as nerve pain in her foot, then reports that Toradol and gabapentin are helping with this. No recent travel. Denies any urinary symptoms. PAST MEDICAL HISTORY: 1. Depression. 2. Cyclic nausea and vomiting. 3. Pancreatitis. 4. Migraines. 5. Right first toe osteomyelitis. PAST SURGICAL HISTORY: 1. Status post right bunionectomy with hardware on 12/10/18. 2. Status post excision of hardware, incision and debridement on 01/14/19. 3. Status post debridement of right first MTP on 02/03/19. 4. Status post cement spacer placement, incision and drainage of the right first MTP and closure of the wound on 02/07/19. 5. Status post excision with cement spacer and right first MTP reconstruction with iliac crest graft on 03/14/19. 6. Status post incision and debridement with excision of hardware and bone graft on 05/03/19. 7. Status post incision and debridement, culture, pulse lavage and VAC dressing placement on 05/26/19. 8. Status post cholecystectomy in 1999. 9. Status post tubal ligation. 10. Status post section x3. MEDICATIONS: Home medications: 1. Multivitamin 1 tablet by mouth daily. 2. Lactobacillus 1 tablet by mouth daily. 3. Bupropion 300 mg by mouth daily. 4. Omeprazole 20 mg by mouth. 5. Cefazolin 6 g IV continuous. Hospital medications: 1. Acetaminophen 975 mg by mouth daily. 2. Aspirin 325 mg by mouth daily. 3. Dulcolax suppository 10 mg per rectum daily as needed for constipation. 4. Bupropion 300 mg by mouth daily. 5. Cefazolin 1 g IV every 8 hours. 6. Flexeril 10 mg by mouth every 6 hours as needed for muscle spasms. 7. Benadryl 25 mg by mouth or IV every 6 hours as needed for itching. 8. Colace 100 mg by mouth twice daily. 9. Gabapentin 300 mg by mouth 2 times daily. 10. Heparin sodium 1 mg flush twice daily. 11. Lactobacillus 1 tablet by mouth daily. 12. Lactulose 30 mL by mouth twice daily as needed for constipation. 13. Milk of magnesia 30 mL by mouth daily until BM followed by 30 mL by mouth every 6 hours as needed for constipation. 14. Morphine sulfate 2 mg IV every 4 hours as needed for pain. 15. Zofran 4 mg IV p.o. every 6 hours as needed for nausea. 16. Oxycodone 10 mg by mouth every 4 hours as needed for pain. 17. Percocet 5/325 one to two tablets by mouth every 4 hours as needed for pain. 18. Pantoprazole 40 mg by mouth every morning. 19. MiraLAX 17 g by mouth daily as needed for constipation. 20. Compazine 5 mg by mouth every 6 hours as needed for nausea. 21. Scopolamine 1.5 mg 1 patch transdermal every 72 hours as needed for nausea. 22. Tramadol 50 mg by mouth every 6 hours as needed. 23. Trazodone 25 mg by mouth daily at bedtime as needed. ALLERGIES: No known drug allergies. FAMILY HISTORY: Denies family history of recurrent or resistant infections. No family history of coronary artery disease. Father with a history of diabetes mellitus and bladder cancer. Mother with a history of rheumatoid arthritis and passed secondary to complications from bradycardia. SOCIAL HISTORY: Denies alcohol or recreational drug use. She is a former smoker, quitting in 2013. Prior to that, she had a 14-pack year smoking history. REVIEW OF SYSTEMS: I performed a 10-point review of systems. All the pertinent positives and negatives are mentioned in the history of present illness. The remaining review of systems are negative. PHYSICAL EXAM: Vital Signs: Temperature 98.5, heart rate 78, respiratory rate 16, O2 sat 100% on room air, blood pressure 143/87. General Appearance: Alert , appears to be in no acute distress, sitting up in bed. Head: Normocephalic, atraumatic. EENT: Extraocular movements are intact. No subconjunctival hemorrhage. Moist mucous membranes. Neck: Supple. No lymphadenopathy. Neurological: Alert and oriented. Cranial nerves II through XII are grossly intact. She moves all extremities. Cardiovascular: Regular rate and rhythm. S1 and S2 present. No murmurs, rubs, or gallops heard. Respiratory: No accessory muscle use. The lungs are clear to auscultation bilaterally. Abdomen : Bowel sounds present. Abdomen is soft, nontender, nondistended. Extremities : No lower extremity edema. Musculoskeletal: No clubbing or cyanosis noted. She exhibits good strength in all extremities. Psychological: Calm and cooperative. Skin: No rashes or abnormalities seen. She has a surgical dressing with wound VAC in place to the right lower extremity that is clean, dry and intact with no extending erythema. DIAGNOSTIC STUDIES/LAB DATA: Sodium 138, potassium 3.4, chloride 105, CO2 of 27 , BUN 14, creatinine 0.69, glucose 134. White blood cell count 7.3, hemoglobin 14.8, hematocrit 44, and platelet count 264. CRP yesterday less than 1, ESR 5. Initial wound culture with 4+ neutrophils, no organisms seen. Please see impression and recommendations outlined above. Recommendations have been discussed with ALTHEA Lester. Thank you for asking us to see Ms. Gu in consultation. The case has been discussed with my attending, Dr. Baron Galan, who agrees with the plan of care. Reviewed by SOFÍA SNIDER 05/30/19 1152 [id number]/[facility] #: [id number] [facility]
--- NOTE | 2019-05-27 16:29 | PN ---
Subjective Date of Service: 05/27/19 Interval History: Ms. Rodriguez is feeling well today. She rates pain at 4/10 in RLE currently . She is otherwise feeling well. No other complaints today. Objective Active Medications: Acetaminophen (Tylenol Tab*) 975 mg PO Q8HR [facility] Last Admin: 05/27/19 13:42 Dose: 975 mg Aspirin (Aspirin Tab*) 325 mg PO DAILY [facility] Last Admin: 05/27/19 08:28 Dose: 325 mg Bisacodyl (Dulcolax Supp*) 10 mg [facility] DAILY PRN PRN Reason: CONSTIPATION Bupropion HCl (Bupropion Xl*) 300 mg PO QAM [facility] Last Admin: 05/27/19 08:28 Dose: 300 mg Cyclobenzaprine HCl (Flexeril Tab*) 10 mg PO Q6H PRN PRN Reason: SPASMS Last Admin: 05/26/19 20:04 Dose: 10 mg Diphenhydramine HCl (Benadryl Iv*) 25 mg IV Q6H PRN PRN Reason: PRURITIS Diphenhydramine HCl (Benadryl Po*) 25 mg PO Q6H PRN PRN Reason: PRURITIS Docusate Sodium (Colace Cap*) 100 mg PO BID [facility] Last Admin: 05/27/19 08:28 Dose: 100 mg Gabapentin (Neurontin Cap(*)) 300 mg PO TID [facility] Last Admin: 05/27/19 13:43 Dose: 300 mg Heparin Sodium (Porcine) (Heparin Flush Picc/Ml/Cvc(*)) 1 ml FLUSH 0600,1800 MARY; Protocol Last Admin: 05/27/19 09:59 Dose: 1 ml Cefazolin Sodium/Dextrose (Kefzol 2 Gm Premix In Ors(*)) 2 gm in 50 mls @ 100 mls/hr IVPB Q8H [facility] Lactobacillus Rhamnosus (Lactobacillus Acidophilus*) 1 tab PO QAM [facility] Last Admin: 05/27/19 08:28 Dose: 1 tab Lactulose (Lactulose*) 30 ml PO BID PRN PRN Reason: CONSTIPATION Magnesium Hydroxide (Milk Of Magnesia Liq*) 30 ml PO BID [facility] Last Admin: 05/27/19 08:29 Dose: Not Given Magnesium Hydroxide (Milk Of Magnesia Liq*) 30 ml PO Q6H PRN PRN Reason: CONSTIPATION Morphine Sulfate (Morphine Inj (Syringe))*) 2 mg IV Q4H PRN PRN Reason: Pain - Unrelieved Last Admin: 05/26/19 21:15 Dose: 2 mg Ondansetron HCl (Zofran Inj*) 4 mg IV Q6H PRN PRN Reason: NAUSEA Last Admin: 05/26/19 18:14 Dose: 4 mg Ondansetron HCl (Zofran Odt Tab*) 4 mg PO Q6H PRN PRN Reason: NAUSEA Oxycodone HCl (Roxycodone Tab*) 10 mg PO Q4H PRN PRN Reason: Pain - Breakthrough Oxycodone/Acetaminophen (Percocet 5/325 Tab*) 1 tab PO Q4H PRN PRN Reason: PAIN - MODERATE Oxycodone/Acetaminophen (Percocet 5/325 Tab*) 2 tab PO Q4H PRN PRN Reason: PAIN - SEVERE Pantoprazole Sodium (Protonix Tab*) [facility] Last Admin: 05/27/19 08:28 Dose: 40 mg Pharmacy Profile Note (Scopolamine Patch Remove*) 1 note PATCH OFF Q72H PRN PRN Reason: IF PRN PATCH APPLIED Polyethylene Glycol/Electrolytes (Miralax (17 Gm Dose Jason)) 17 gm PO DAILY PRN PRN Reason: Constipation Prochlorperazine Edisylate (Compazine Inj*) 5 mg IV Q6H PRN PRN Reason: NAUSEA/VOMITING Last Admin: 05/26/19 21:08 Dose: 5 mg Scopolamine (Transderm-Scop 1.5 Mg Patch*) 1 patch TRANSDERM Q72H PRN PRN Reason: NAUSEA Last Admin: 05/26/19 23:45 Dose: 1 patch Tramadol HCl (Ultram*) 50 mg PO Q6HR PRN PRN Reason: PAIN - MODERATE Last Admin: 05/27/19 14:52 Dose: 50 mg Trazodone HCl (Desyrel Tab*) 25 mg PO BEDTIME PRN PRN Reason: insomnia Vital Signs: Temp Pulse Resp BP Pulse Ox 98.7 F 75 16 121/63 98 05/27/19 16:14 05/27/19 16:14 05/27/19 16:14 05/27/19 16:14 05/27/19 16:14 Oxygen Devices in Use Now: None Appearance: Ms. Rodriguez is a middle aged white woman who is laying in bed. She appears to be in no acute distress. Eyes: No Scleral Icterus, PERRLA Ears/Nose/Mouth/Throat: NL Teeth, Lips, Gums, Clear Oropharnyx, Mucous Membranes Moist Neck: NL Appearance and Movements; NL JVP, Trachea Midline Respiratory: Symmetrical Chest Expansion and Respiratory Effort, Clear to Auscultation Cardiovascular: NL Sounds; No Murmurs; No JVD, RRR, No Edema Abdominal: NL Sounds; No Tenderness; No Distention, No Hepatosplenomegaly Extremities: - - RLE elevated; there is a CDI dressing in place; cap refill < 2 sec Neurological: Alert and Oriented x 3 Result Diagrams: 05/27/19 05:14 05/26/19 19:50 Microbiology and Other Data: Microbiology 05/26/19 15:54 Anaerobic Culture - Preliminary Wound No Growth Day 1 05/26/19 15:54 Gram Stain - Final Foot Right Wound Culture - Preliminary No Growth Day 1 Assess/Plan/Problems-Billing Assessment: 53 PMHx GERD presents s/p bunionectomy on 11/2018 with multiple subsequent surgeries who presents with acute osteomyelitis RLE 1st digit. - Patient Problems (1) Osteomyelitis of fifth toe of right foot Comment: -management per primary team -ID following: continue cefazolin and monitor cultures (2) Electrolyte abnormality Comment: -Mg, K repleted -recommend intermittent checks and repletion as necessary (3) GERD (gastroesophageal reflux disease) Comment: -continue pantoprazole (4) DVT prophylaxis Comment: -per primary team: asa 325 (5) Full code status Status and Disposition: Inpatient. Discharge per primary team. AT THIS TIME, THE HOSPITALIST TEAM WILL SIGN OFF. THANK YOU FOR ALLOWING US TO PARTICIPATE IN THE CARE OF MS. RODRIGUEZ. PLEASE DO NOT HESITATE TO RE- CONSULT FOR ANY CONCERNS OR QUESTIONS.
[2019-05-27] MEDS: ceFAZolin 2 GM PREMIX in ORs 2 GM/50 ML BAG IVPB SCH (16:36)
[2019-05-27] MEDS: Morphine INJ* 2 MG/ML 1 ML SYRINGE (TWO MG - NEW SYRINGE VERSION) IV PRN (18:26)
[2019-05-27] MEDS: traZODone TAB* 50 MG TAB PO PRN (22:18)
[2019-05-28] MEDS: Morphine INJ* 2 MG/ML 1 ML SYRINGE (TWO MG - NEW SYRINGE VERSION) IV PRN ×3 (01:31→22:21)
[2019-05-28] MEDS: ceFAZolin 2 GM PREMIX in ORs 2 GM/50 ML BAG IVPB SCH ×3 (01:32→16:35)
[2019-05-28] MEDS: oxyCODONE TAB* 5 MG TAB PO PRN ×2 (02:04→11:45)
[2019-05-28] MEDS: traMADol TAB* 50 MG PO PRN ×3 (03:06→22:12)
[2019-05-28] MEDS: Acetaminophen TAB* 325 MG PO SCH ×3 (05:39→22:55)
[2019-05-28] MEDS: Aspirin TAB* 325 MG PO SCH (08:36)
[2019-05-28] MEDS: Docusate CAP* 100 MG PO SCH ×2 (08:36→21:43)
[2019-05-28] MEDS: BuPROPion XL* 300 MG TAB.XL PO SCH (08:36)
[2019-05-28] MEDS: Gabapentin CAP(*) 300 MG PO SCH ×3 (08:36→21:43)
[2019-05-28] MEDS: Pantoprazole TAB * 40 MG TAB PO SCH (08:37)
[2019-05-28] MEDS: Lactobacillus Acidophilus* 1 TAB PO SCH (08:37)
[2019-05-28] MEDS: Magnesium Hydroxide LIQ* 30 ML UDC PO SCH ×2 (08:37→21:44)
[2019-05-28] MEDS: Ondansetron ODT TAB* 4 MG PO PRN ×2 (09:45→19:50)
--- NOTE | 2019-05-28 10:54 | PN ---
Progress Note - Progress Note Date of Service: 05/28/19 SOAP: Subjective: [Pt was seen this morning. She is doing well. She has no complaints. Denies any chest pain, sob, nausea or vomiting. ] Objective: [General: A&O x3. NAD MSK, RLE: Dressing is c/d/i. Toes exposed, able to wiggle. NVI. ] Vital Signs Temp 97.9 F 05/28/19 08:23 Pulse 68 05/28/19 08:23 Resp 16 05/28/19 09:27 BP 132/84 05/28/19 08:23 Pulse Ox 98 05/28/19 08:23 Intake & Output 05/27/19 05/28/19 05/28/19 18:59 06:59 18:59 Intake Total 701 1158 58 Output Total 500 700 750 Balance 201 458 -692 Weight 160 lb 14.999 oz Intake: IV Fluids 127 LR 127 IVPB 54 58 58 ABX - CEFAZOLIN 54 58 58 Oral 520 1100 Output: Urine 500 700 750 Assessment: [Recurrent infection, wound dehiscence right first metatarsal. POD 2: Irrigation and debridement, culture and sensitivity, pulse lavage, and VAC dressing. Plan: [Wound VAC change tomorrow with Dr. Faust Continue with pain medication ]
[2019-05-28] MEDS: oxyCODONE/Acetamin 5/325 MG* TAB PO PRN (19:48)
[2019-05-29] MEDS: ceFAZolin 2 GM PREMIX in ORs 2 GM/50 ML BAG IVPB SCH ×3 (00:24→15:39)
[2019-05-29] MEDS: oxyCODONE/Acetamin 5/325 MG* TAB PO PRN ×3 (00:25→20:25)
[2019-05-29] MEDS: Cyclobenzaprine TAB* 10 MG PO PRN ×3 (00:26→20:25)
[2019-05-29] MEDS: Acetaminophen TAB* 325 MG PO SCH ×3 (06:19→20:38)
[2019-05-29] MEDS: Morphine INJ* 2 MG/ML 1 ML SYRINGE (TWO MG - NEW SYRINGE VERSION) IV PRN (06:23)
[2019-05-29] MEDS ORDERED: Propofol* 10 MG/ML 20 ML BTL ONE (07:34)
[2019-05-29] MEDS ORDERED: Ketorolac INJ* 30 MG/ML 1 ML VIAL ONE (07:34)
[2019-05-29] MEDS ORDERED: Midazolam* 1 MG/ML 5 ML VIAL (5 MG) ONE (07:34)
[2019-05-29] MEDS ORDERED: fentaNYL* 50 MCG/ML 2 ML VIAL (100 MCG VIAL) ONE ×2 (07:34→09:08)
[2019-05-29] MEDS ORDERED: Ondansetron INJ* 2 MG/ML VIAL ONE (07:34)
[2019-05-29] MEDS ORDERED: Lidocaine 2% PF * 5 ML VIAL ONE (07:34)
[2019-05-29] MEDS ORDERED: Dexamethasone IV* 4 MG/ML 1 ML (4 MG) ONE (07:34)
[2019-05-29] MEDS ORDERED: ceFAZolin 2 GM PREMIX in ORs 2 GM/50 ML BAG ONE (07:58)
[2019-05-29] MEDS ORDERED: Lidocaine 2% PF* 10 ML AMP ONE (08:02)
[2019-05-29] MEDS ORDERED: KETAMINE HCL* 50 MG/ML 10 ML VIAL ONE (08:03)
[2019-05-29] MEDS ORDERED: Ondansetron INJ* 2 MG/ML VIAL IV PRN (08:59)
[2019-05-29] MEDS ORDERED: Naloxone* 0.4 MG/ML 1 ML VIAL IV PRN (08:59)
[2019-05-29] MEDS: fentaNYL* 50 MCG/ML 2 ML VIAL (100 MCG VIAL) IV PRN ×2 (09:10→09:17)
[2019-05-29] MEDS: Gabapentin CAP(*) 300 MG PO SCH ×3 (09:37→20:24)
[2019-05-29] MEDS: BuPROPion XL* 300 MG TAB.XL PO SCH (09:38)
[2019-05-29] MEDS: Docusate CAP* 100 MG PO SCH ×2 (09:38→20:24)
[2019-05-29] MEDS: Pantoprazole TAB * 40 MG TAB PO SCH (09:38)
[2019-05-29] MEDS: Lactobacillus Acidophilus* 1 TAB PO SCH (09:38)
[2019-05-29] MEDS: Aspirin TAB* 325 MG PO SCH (09:38)
[2019-05-29] MEDS: Magnesium Hydroxide LIQ* 30 ML UDC PO SCH ×2 (10:01→20:38)
--- NOTE | 2019-05-29 11:33 | OP ---
DATE OF OPERATION: 05/29/19 - ROOM #346 DATE OF : 67 ATTENDING SURGEON: Aubrey Faust MD PRE-OP DIAGNOSIS: Infected dehiscence, right forefoot wound. POST-OP DIAGNOSIS: Infected dehiscence, right forefoot wound. OPERATIVE PROCEDURE: Debridement with partial resection, first metatarsal and proximal phalanx, and irrigation and debridement and secondary closure. DESCRIPTION OF PROCEDURE: The patient was taken to the operating room where ___ ___ isidoro was applied. The VAC dressing was removed and the bed of the wound looked quite clean, actually now with some early granulation tissue. The proximal metatarsal looked a bit ischemic, so I shaved about a centimeter and a half with a microsagittal saw and also trimmed the proximal phalanx of the great toe. Cultures were sent and the bone to pathology. Then, after further irrigation, I closed the wound in layers with 2-0 Monocryl deep and 3-0 Monocryl interrupted sutures for the skin. A wrap was applied with compression and a plaster splint at the ankle to maintain position. [id number]/[facility] #: [id number] [facility]
[2019-05-29] MEDS: traMADol TAB* 50 MG PO PRN (11:53)
[2019-05-29] MEDS: Polyethylene Glycol 3350* 17 GM PACKET PO PRN (20:24)
[2019-05-29] MEDS: traZODone TAB* 50 MG TAB PO PRN (20:28)
[2019-05-29] MEDS ORDERED: Scopolamine PATCH Remove* 1 NOTE MISC PATCH OFF PRN (22:00)
[2019-05-30] MEDS: ceFAZolin 2 GM PREMIX in ORs 2 GM/50 ML BAG IVPB SCH ×3 (00:08→16:13)
[2019-05-30] MEDS: traZODone TAB* 50 MG TAB PO PRN (00:14)
[2019-05-30] MEDS: traMADol TAB* 50 MG PO PRN ×3 (00:18→16:14)
[2019-05-30] MEDS: oxyCODONE/Acetamin 5/325 MG* TAB PO PRN ×3 (04:15→20:23)
[2019-05-30] MEDS: Acetaminophen TAB* 325 MG PO SCH ×3 (05:23→23:03)
[2019-05-30] MEDS: Pantoprazole TAB * 40 MG TAB PO SCH (08:34)
[2019-05-30] MEDS: Gabapentin CAP(*) 300 MG PO SCH ×3 (08:34→20:23)
[2019-05-30] MEDS: Aspirin TAB* 325 MG PO SCH (08:34)
[2019-05-30] MEDS: Docusate CAP* 100 MG PO SCH ×2 (08:34→20:23)
[2019-05-30] MEDS: BuPROPion XL* 300 MG TAB.XL PO SCH (08:35)
[2019-05-30] MEDS: Polyethylene Glycol 3350* 17 GM PACKET PO PRN (08:35)
[2019-05-30] MEDS: Lactobacillus Acidophilus* 1 TAB PO SCH (08:35)
[2019-05-30] MEDS: Magnesium Hydroxide LIQ* 30 ML UDC PO SCH ×2 (08:52→20:19)
--- NOTE | 2019-05-30 09:27 | PN ---
Progress Note - Progress Note Date of Service: 05/30/19 SOAP: Subjective: []Pt seen at bedside. She is in good spirits and feeling well without fever, chills, cp, sob, dizziness, nausea. She has a midline in place and will need a picc, as well as briova teaching and finalized abx plan before dc. Objective: []Gen: NAD, nontoxic appearing RLE: SPlint cdi, able to f/e and sensation intact to light touch digits 2-5. No movement or sensation in great toe. cap refill less than two seconds distally digits 1-5. Assessment: []Infected dehiscence, right forefoot wound. POD 1 sp Debridement with partial resection, first metatarsal and proximal phalanx, and irrigation and debridement and secondary closure. Plan: []nwb rle cont ancef, abx per id replace midline with picc today plan for dc home tomorrow Vital Signs Temp 98.7 F 05/30/19 07:35 Pulse 68 05/30/19 07:35 Resp 16 05/30/19 08:34 BP 127/78 05/30/19 07:35 Pulse Ox 98 05/30/19 07:35 Intake & Output 05/29/19 05/30/19 05/30/19 18:59 06:59 18:59 Intake Total 1100 1555 Output Total 500 1000 Balance 600 555 Intake: IV Fluids 500 20 LR 500 NS (0.9%) 20 IVPB 55 ABX - CEFAZOLIN 55 Oral 600 1480 Output: Urine 500 1000 Laboratory Last Values WBC 7.3 10^3/uL (3.5-10.8) 05/27/19 05:14 RBC 4.86 10^6 /uL (3.70-4.87) 05/27/19 05:14 Hgb 14.8 g/dL (12.0-16.0) 05/27/19 05:14 Hct 44 % (35-47) 05/27/19 05:14 MCV 89 fL (80-97) 05/27/19 05:14 MCH 30 pg (27-31) 05/27/19 05:14 MCHC 34 g/dL (31-36) 05/27/19 05:14 RDW 15 % (10-15) 05/27/19 05:14 Plt Count 269 10^3/uL (150-450) 05/27/19 05:14 MPV 8.4 fL (7.4-10.4) 05/27/19 05:14 Neut % (Auto) 78.1 % 05/27/19 05:14 Lymph % (Auto) 12.3 % 05/27/19 05:14 [place] % (Auto) 8.3 % 05/27/19 05:14 Eos % (Auto) 0.9 % 05/27/19 05:14 Baso % (Auto) 0.4 % 05/27/19 05:14 Absolute Neuts (auto) 5.7 10^3/ul (1.5-7.7) 05/27/19 05:14 Absolute Lymphs (auto) 0.9 10^3/ul (1.0-4.8) L 05/27/19 05:14 Absolute Monos (auto) 0.6 10^3/ul (0-0.8) 05/27/19 05:14 Absolute Eos (auto) 0.1 10^3/ul (0-0.6) 05/27/19 05:14 Absolute Basos (auto) 0.0 10^3/ul (0-0.2) 05/27/19 05:14 Absolute Nucleated RBC 0.0 10^3/ul 05/27/19 05:14 Nucleated RBC % 0.1 05/27/19 05:14 ESR 5 mm/Hr (0-29) 05/26/19 19:50 Sodium 138 mmol/L (135-145) 05/26/19 19:50 Potassium 3.4 mmol/L (3.5-5.0) L 05/26/19 19:50 Chloride 105 mmol/L (101-111) 05/26/19 19:50 Carbon Dioxide 27 mmol/L (22-32) 05/26/19 19:50 Anion Gap 6 mmol/L (2-11) 05/26/19 19:50 BUN 14 mg/dL (6-24) 05/26/19 19:50 Creatinine 0.69 mg/dL (0.51-0.95) 05/26/19 19:50 Est GFR ( Amer) 108.1 (>60) 05/26/19 19:50 Est GFR (Non-Af Amer) 89.3 (>60) 05/26/19 19:50 BUN/Creatinine Ratio 20.3 (8-20) H 05/26/19 19:50 Glucose 134 mg/dL (70-100) H 05/26/19 19:50 Calcium 8.7 mg/dL (8.6-10.3) 05/26/19 19:50 Magnesium 1.4 mg/dL (1.9-2.7) L 05/26/19 19:50 Total Bilirubin 0.30 mg/dL (0.2-1.0) 05/26/19 19:50 AST 22 U/L (13-39) 05/26/19 19:50 ALT 8 U/L (7-52) 05/26/19 19:50 Alkaline Phosphatase 77 U/L (34-104) 05/26/19 19:50 C-Reactive Protein < 1.00 mg/L (<8.01) 05/26/19 19:50 Total Protein 6.1 g/dL (6.4-8.9) L 05/26/19 19:50 Albumin 3.8 g/dL (3.2-5.2) 05/26/19 19:50 Globulin 2.3 g/dL (2-4) 05/26/19 19:50 Albumin/Globulin Ratio 1.7 (1-3) 05/26/19 19:50
--- NOTE | 2019-05-30 09:49 | PN ---
Progress Note - Progress Note Date of Service: 05/30/19 SOAP: Subjective: CC: Right foot infection HPI: Ms. Gu is a 53 yo female with PMH significant for depression, and right 1st toe osteomyelitis; admitted for I+D. Denies fever, chills, nausea, vomiting , or diarrhea. Pain in right foot is controlled. Objective: Vital Signs 05/30/19 05/30/19 05/30/19 06:15 06:25 07:35 Temperature 98.7 F Pulse Rate 68 Respiratory 16 16 Rate Blood Pressure 127/78 (mmHg) O2 Sat by Pulse 98 98 Oximetry Physical Exam: General: NAD, laying in bed Neurological: Alert and Oriented HEENT: Moist MM Cardiovascular: Heart rate regular Respiratory: Lung sounds clear Abdominal: Bowel sounds present; ABD soft, non tender and distended Skin: No rash. Surgical dressing to the right foot Laboratory Tests 05/27/19 05:14 WBC 7.3 Hgb 14.8 Hct 44 Plt Count 269 Microbiology 05/29/19 08:30 Anaerobic Culture - Preliminary Wound - Right No Growth Day 1 05/29/19 08:30 Gram Stain - Final Foot Right Wound Culture - Preliminary No Growth Day 1 05/26/19 15:54 Anaerobic Culture - Final Wound No Growth Day 4 05/26/19 15:54 Gram Stain - Final Foot Right Wound Culture - Final No Growth Day 4 Assessment: 1. Right 1st toe acute osteomyelitis. Cultures from April 2019 with staph aureus. Was on Ancef outpatient, and wound opened up. Afebrile and no leukocytosis. CRP on admission < 1. Has underwent I+D x 2 this admission. Wound culture with no growth on day 4. Plan: Continue Ancef 2gm IV Q8H, day 2856. Weekly labs while on IV ABX: CBC, CMP, and CRP. Followup with ID outpatient (already has an appointment on 06/09/19 at 10:00 am). She will need to have her midline changed to a PICC line.
[2019-05-31] MEDS: ceFAZolin 2 GM PREMIX in ORs 2 GM/50 ML BAG IVPB SCH ×2 (00:06→08:01)
[2019-05-31] MEDS: traMADol TAB* 50 MG PO PRN ×2 (03:22→11:25)
[2019-05-31] MEDS: Acetaminophen TAB* 325 MG PO SCH (05:12)
[2019-05-31] MEDS: Lactobacillus Acidophilus* 1 TAB PO SCH (08:05)
[2019-05-31] MEDS: BuPROPion XL* 300 MG TAB.XL PO SCH (08:05)
[2019-05-31] MEDS: Docusate CAP* 100 MG PO SCH (08:05)
[2019-05-31] MEDS: Gabapentin CAP(*) 300 MG PO SCH (08:05)
[2019-05-31] MEDS: Aspirin TAB* 325 MG PO SCH (08:05)
[2019-05-31] MEDS: Polyethylene Glycol 3350* 17 GM PACKET PO PRN (08:09)
[2019-05-31] MEDS: Pantoprazole TAB * 40 MG TAB PO SCH (08:15)
[2019-05-31] MEDS: Magnesium Hydroxide LIQ* 30 ML UDC PO SCH (08:20)
--- NOTE | 2019-05-31 08:21 | PN ---
Progress Note - Progress Note SOAP: Subjective: resting comfortably with no significant complaints Objective: Vital Signs Temp Pulse Resp BP Pulse Ox 98.2 F 70 18 139/83 98 05/31/19 07:41 05/31/19 07:41 05/31/19 08:05 05/31/19 07:41 05/31/19 07:41 Laboratory Last Values WBC 7.3 10^3/uL (3.5-10.8) 05/27/19 05:14 RBC 4.86 10^6 /uL (3.70-4.87) 05/27/19 05:14 Hgb 14.8 g/dL (12.0-16.0) 05/27/19 05:14 Hct 44 % (35-47) 05/27/19 05:14 MCV 89 fL (80-97) 05/27/19 05:14 MCH 30 pg (27-31) 05/27/19 05:14 MCHC 34 g/dL (31-36) 05/27/19 05:14 RDW 15 % (10-15) 05/27/19 05:14 Plt Count 269 10^3/uL (150-450) 05/27/19 05:14 MPV 8.4 fL (7.4-10.4) 05/27/19 05:14 Neut % (Auto) 78.1 % 05/27/19 05:14 Lymph % (Auto) 12.3 % 05/27/19 05:14 [place] % (Auto) 8.3 % 05/27/19 05:14 Eos % (Auto) 0.9 % 05/27/19 05:14 Baso % (Auto) 0.4 % 05/27/19 05:14 Absolute Neuts (auto) 5.7 10^3/ul (1.5-7.7) 05/27/19 05:14 Absolute Lymphs (auto) 0.9 10^3/ul (1.0-4.8) L 05/27/19 05:14 Absolute Monos (auto) 0.6 10^3/ul (0-0.8) 05/27/19 05:14 Absolute Eos (auto) 0.1 10^3/ul (0-0.6) 05/27/19 05:14 Absolute Basos (auto) 0.0 10^3/ul (0-0.2) 05/27/19 05:14 Absolute Nucleated RBC 0.0 10^3/ul 05/27/19 05:14 Nucleated RBC % 0.1 05/27/19 05:14 ESR 5 mm/Hr (0-29) 05/26/19 19:50 Sodium 138 mmol/L (135-145) 05/26/19 19:50 Potassium 3.4 mmol/L (3.5-5.0) L 05/26/19 19:50 Chloride 105 mmol/L (101-111) 05/26/19 19:50 Carbon Dioxide 27 mmol/L (22-32) 05/26/19 19:50 Anion Gap 6 mmol/L (2-11) 05/26/19 19:50 BUN 14 mg/dL (6-24) 05/26/19 19:50 Creatinine 0.69 mg/dL (0.51-0.95) 05/26/19 19:50 Est GFR ( Amer) 108.1 (>60) 05/26/19 19:50 Est GFR (Non-Af Amer) 89.3 (>60) 05/26/19 19:50 BUN/Creatinine Ratio 20.3 (8-20) H 05/26/19 19:50 Glucose 134 mg/dL (70-100) H 05/26/19 19:50 Calcium 8.7 mg/dL (8.6-10.3) 05/26/19 19:50 Magnesium 1.4 mg/dL (1.9-2.7) L 05/26/19 19:50 Total Bilirubin 0.30 mg/dL (0.2-1.0) 05/26/19 19:50 AST 22 U/L (13-39) 05/26/19 19:50 ALT 8 U/L (7-52) 05/26/19 19:50 Alkaline Phosphatase 77 U/L (34-104) 05/26/19 19:50 C-Reactive Protein < 1.00 mg/L (<8.01) 05/26/19 19:50 Total Protein 6.1 g/dL (6.4-8.9) L 05/26/19 19:50 Albumin 3.8 g/dL (3.2-5.2) 05/26/19 19:50 Globulin 2.3 g/dL (2-4) 05/26/19 19:50 Albumin/Globulin Ratio 1.7 (1-3) 05/26/19 19:50 splint c/d/i; able to wiggle 2-5 toes with intact sensation Assessment: s/p I&D right LE Plan: 1) NWB RLE 2) IV Abx per ID; awaiting PICC placement today prior to DC 3) F/U with Dr. Faust next week; keep splint c/d/i until post-op visit 4) Home today after PICC line placed and training complete <Mery Oquendo - Last Filed: 05/31/19 08:22> - Progress Note SOAP: Subjective: [] Objective: [] Assessment: [] Plan: [] <Aubrey Faust - Last Filed: 06/01/19 15:41>
[2019-05-31] MEDS: Ondansetron ODT TAB* 4 MG PO PRN (09:26)
--- NOTE | 2019-05-31 09:38 | DS ---
DISCHARGE SUMMARY: DATE OF ADMISSION: 05/26/19 DATE OF DISCHARGE: 05/31/19 PRINCIPAL DIAGNOSIS: Right foot infection. DISCHARGE DIAGNOSIS: Right foot infection. PHYSICIAN: Aubrey Faust MD * (DICTATED BY ALTHEA MONSIVAIS) DISCHARGE DISPOSITION: Stable, discharged to home in stable condition. HOSPITAL COURSE: Ms. Gu is a 53-year-old female who underwent a right forefoot wound I and D. She tolerated the surgery well. Postoperatively, she was placed on IV antibiotics. She remained nonweightbearing of the right lower extremity and placed on aspirin for DVT prophylaxis. Prior to discharge, a PICC line was placed and home IV antibiotics were set up and training was completed for the PICC line. She was afebrile and her vital signs were stable. PHYSICAL EXAM: Upon discharge, she was afebrile, her vital signs were stable, her wound was healing. Her splint was clean, dry, and intact and she was able to wiggle her second through fifth toes with intact sensation. No calf pain or tenderness. DISCHARGE MEDICATIONS: 1. Aspirin 325 daily. 2. Bupropion 300 mg daily. 3. IV Ancef 2 g every 8 hours. 4. Gabapentin 300 mg 3 times a day. 5. Oxycodone 5 mg as needed for pain. 6. Protonix 40 mg daily. 7. Trazodone 25 mg q.h.s. DISCHARGE INSTRUCTIONS: She was discharged home with a PICC line. She will remain on IV Ancef every 8 hours for 56 days. She will get weekly labs while on her IV antibiotics including CBC, CMP, and CRP. She has Percocet 5 mg tabs to take as needed for pain. She will take aspirin 325 daily for DVT prophylaxis. She will remain nonweightbearing of the right lower extremity and keep her splint clean, dry, and intact until her followup visit next week with Dr. Faust. ALTHEA MONSIVAIS [id number]/[facility] #: [id number] MTDD
--- NOTE | 2019-05-31 10:50 | PN ---
Progress Note - Progress Note Date of Service: 05/31/19 SOAP: Subjective: CC: Right foot infection HPI: Ms. Gu is a 53 yo female with PMH significant for depression, and right 1st toe osteomyelitis; admitted for I+D for the right 1st toe after a wound dehiscence. Denies fever, chills, nausea, vomiting, or diarrhea. Pain in right foot is controlled. Has moved her bowels and reports 1 episode of emesis this AM after taking medications on an empty stomach. She is anxious to get discharged home today. Objective: Vital Signs 05/31/19 05/31/19 07:41 08:05 Temperature 98.2 F Pulse Rate 70 Respiratory 16 18 Rate Blood Pressure 139/83 (mmHg) O2 Sat by Pulse 98 Oximetry Physical Exam: General: NAD, laying in bed Neurological: Alert and Oriented HEENT: Moist MM Cardiovascular: Heart rate regular Respiratory: Lung sounds clear Abdominal: Bowel sounds present; ABD soft, non tender and non distended Skin: No rash. Surgical dressing to the right foot clean, dry and intact; no surrounding erythema. PICC line to the right UE, site benign Microbiology 05/29/19 08:30 Anaerobic Culture - Preliminary Wound - Right No Growth Day 2 05/29/19 08:30 Gram Stain - Final Foot Right Wound Culture - Preliminary No Growth Day 2 05/26/19 15:54 Anaerobic Culture - Final Wound No Growth Day 4 05/26/19 15:54 Gram Stain - Final Foot Right Wound Culture - Final No Growth Day 4 Assessment: 1. Right 1st toe acute osteomyelitis. Cultures from April 2019 with staph aureus. Was on Ancef outpatient, and wound opened. Afebrile and no leukocytosis. CRP on admission < 1. Has underwent I+D x 2 this admission. Wound culture with no growth on day 4 and day 2. Pathology pending. Plan: Continue Ancef 2gm IV Q8H, day . Weekly labs while on IV ABX: CBC, CMP, and CRP. Followup with ID outpatient (already has an appointment on 06/09/19 at 10:00 am). PICC line was placed this AM. Floor time: 25 minutes > 50% was spent with the patient discussing home IV ABX, when to call the office (fever, rash, diarrhea, any questions or concerns), and followup.
[2019-05-31 11:38] VITALS: BP 144/90
[2019-05-31] MEDS ORDERED: ceFAZolin VIAL(*) 2 GM in NS 0.9% 100 ML* 100 ML IVPB SCH (16:00)
== END 2019-05-31 13:55 | disposition home or self-care (01) | DRG 791 ==
LOC: OR 13:59 → SSU 16:29
PROVIDERS: ADMIT Orthopaedic Surgery; ATTEND Orthopaedic Surgery
PROC: 0HBMXZZ Excision of Right Foot Skin, External Approach (ICD-10-PCS; 2019-05-26)
PROC: 0QBN0ZZ Excision of Right Metatarsal, Open Approach (ICD-10-PCS; principal; 2019-05-29 08:00)
PROC: 05HY33Z Insertion of Infusion Device into Upper Vein, Percutaneous Approach (ICD-10-PCS; 2019-05-31)
DX: T81.31XA Disruption of external operation (surgical) wound, not elsewhere classified, initial encounter (principal); M86.171 Other acute osteomyelitis, right ankle and foot; T81.49XA Infection following a procedure, other surgical site, initial encounter; M86.671 Other chronic osteomyelitis, right ankle and foot; K21.9 Gastro-esophageal reflux disease without esophagitis; I10 Essential (primary) hypertension; F32.9 Major depressive disorder, single episode, unspecified; G43.A0 Cyclical vomiting, in migraine, not intractable; E83.42 Hypomagnesemia; E87.6 Hypokalemia; G89.29 Other chronic pain; X58.XXXA Exposure to other specified factors, initial encounter; Z87.891 Personal history of nicotine dependence; Z79.899 Other long term (current) drug therapy; Z79.82 Long term (current) use of aspirin
CPT/HCPCS: 36415; 80053; 83735; 85025; 85027; 85652; 86140; 87070; 87073; 87205; 88304; 88311; A9270-GY; C1751; J0360; J0690; J0780; J1100; J1170; J1240; J1885; J2001; J2250; J2270; J2405; J2704; J3010; J3475; J3490